=== PATIENT | female | born 1965 | race Caucasian/White ===

== ENCOUNTER 2019-01-06 20:18 | Emergency (ER) | payer OTHER, SELFPAY ==
[2019-01-06] VITALS (11 sets, daily range): BP systolic 122–178; BP diastolic 54–107; PULSE 62–88; RESP 13–19; TEMP 36.7; O2SAT 99–100
--- NOTE | 2019-01-06 20:25 | DI.CT.S_ITS ---
PROCEDURE: CT HEAD/BRAIN WO CON INDICATIONS: stroke like symptoms TECHNIQUE: Noncontrast 4.5 mm thick angled axial sections acquired from the foramen magnum to the vertex, with coronal and sagittal reformats. For radiation dose reduction, the following was used: automated exposure control, adjustment of mA and/or kV according to patient size. COMPARISON: None. FINDINGS: Image quality: Excellent. CSF spaces: Basal cisterns are patent. No extra-axial fluid collections. Ventricles are normal in size and shape. Brain: No midline shift. No intracranial masses or hemorrhage. Mohan-white matter interface is normal. Skull and face: Calvarium and visualized facial bones are intact, without suspicious lesions. Sinuses: Visualized sinuses and mastoids are clear. IMPRESSION: No CT evidence of acute intracranial process. Dictated by: Marguerite Price M.D. on 01/06/2019 at 21:06 Approved by: Marguerite Price M.D. on 01/06/2019 at 21:13
[2019-01-06] MEDS: SODIUM CHLORIDE 0.9% 1,000 ML 150 ML IV (20:38)
--- NOTE | 2019-01-06 20:45 | ED.HA ---
HPI - Headache General Chief Complaint: Headache Stated Complaint: thinks she had a stroke Time Seen by Provider: 01/06/19 20:20 Source: patient Mode of arrival: ambulatory Limitations: no limitations History of Present Illness HPI Narrative: 53-year-old female nonsmoker presents with a family friend in the chief complaint of neurologic symptoms that started at 7:30 p.m. this evening. Her initial presenting complaint was of a vague fullness in her head that quickly resolved and proceeded to evolve into some drooping of her left upper lid, left side of her face with some slurring of speech as well as left arm heaviness, tingling and left leg heaviness and tingling. She denies any recent injury nor fever or chills. She is otherwise well and at baseline. She denies the use of blood thinners. She has never had any bleeding complications and denies recent trauma or surgery. Patient activated as a code stroke and taken to CT scan. Her BEFAST positive but LAMS score is low, no code IR activated. Initially was very unclear regarding the timeline but once her friend came back we were able to establish a clear time of onset Onset (ago): hour(s) Location: left Relieving factors: nothing Exacerbating factors: none Associated symptoms: numbness and weakness Related Data Allergies Allergy/AdvReac Type Severity Reaction Status Date / Time promethazine [From Phenergan] Allergy Severe Seizure Verified 01/06/19 20:27 epinephrine Allergy Intermediate Verified 01/06/19 20:27 Review of Systems Constitutional Constitutional: Denies chills, Denies fatigue, Denies fever(s), Denies frequent falls, Denies lethargy and Reports weakness Eyes Eyes: Denies change in vision, Denies eye discharge, Denies irritation and Denies loss of vision ENT Ears, Nose, Mouth, and Throat: Denies change in voice, Denies dizziness, Denies neck pain, Denies sore throat and Denies throat swelling Cardiovascular Cardiovascular: Denies chest pain, Denies irregular heart rhythm, Denies lightheadedness, Denies palpitations, Denies dyspnea, Denies dyspnea on exertion and Denies orthopnea Respiratory Respiratory: Denies cough, Denies dyspnea, Denies dyspnea on exertion and Denies wheezing Gastrointestinal Gastrointestinal: Denies abdominal pain, Denies change in bowel habits, Denies diarrhea, Denies nausea and Denies vomiting Genitourinary Genitourinary: Denies hematuria, Denies flank pain, Denies urinary incontinence and Denies urinary urgency Musculoskeletal Musculoskeletal: Denies back pain, Denies muscle weakness, Denies neck pain, Reports numbness and Reports tingling Integumentary/Breasts Skin/Breast: Denies pruritus, Denies erythema, Denies rash and Denies wounds Neurologic Neurologic: Denies behavioral changes, Denies confusion, Denies dizziness, Denies frequent falls, Denies loss of vision, Reports numbness, Reports tingling and Reports weakness Psychiatric Psychiatric: Denies anxiety, Denies behavioral changes, Denies confusion, Denies depression, Denies homicidal ideation and Denies suicidal ideation Endocrine Endocrine: Denies fatigue, Denies flushing and Denies palpitations Hematologic/Lymphatic Hematologic/Lymphatic: Denies easy bruising Allergic/Immunologic Allergic/Immunologic: Denies urticaria, Denies throat swelling and Denies wheezing PFSH Social History Smoking Status: Never smoker Social History Smoking Status: Never smoker Exam Narrative Exam Narrative: GENERAL: [53] year old patient appears stated age. Well-nourished, well-developed patient, in mild distress. Anxious HEAD: Atraumatic. Normocephalic. EYES: Pupils equal round and reactive. Extraocular motions intact. No scleral icterus. No injection or drainage. ENT: Nose without bleeding, purulent drainage. Throat without erythema, tonsillar hypertrophy or exudate. Airway patent. NECK: Trachea midline. Non tender CARDIOVASCULAR: Regular rate and rhythm without murmurs, gallops, or rubs. RESPIRATORY: Clear to auscultation. Breath sounds equal bilaterally. No wheezes, rales, or rhonchi. GASTROINTESTINAL: Abdomen soft, non-tender, nondistended. EXTREMITIES: No edema or joint tenderness. BACK: Nontender without deformity or crepitance. No flank tenderness. NEURO: AOx3. SKIN: No rash or erythema of visible areas Initial Vital Signs Initial Vital Signs: Vital Signs Temperature 98.1 F 01/06/19 20:27 Pulse Rate 62 01/06/19 20:27 Respiratory Rate 18 01/06/19 20:27 Blood Pressure 131/72 01/06/19 20:27 Pulse Oximetry 100 01/06/19 20:27 Scores NIH Stroke Scale Level of Conciousness: Alert, keenly responsive Ask month/age: Answers both questions correctly. Open/close eyes, close hand: Performs both tasks correctly Best gaze horizontal: Normal Visual rose: No visual loss Facial palsy: Partial paralysis, total or near total paralysis of lower face Left arm drift: No drift for full 10 sec Right arm drift: No drift for full 10 sec Left leg drift: Drifts down, not to bed Right leg drift: No drift for full 10 sec Limb ataxia: Absent Sensory on face/arms/legs: Mild to moderate sensory loss, can tell touch Best language: No aphasia, normal Dysarthria: Normal Extinction or inattention: No abnormality Total NIH Stroke scale score: 4 Course Course Course Narrative: tPA (Tissue Plasminogen Activator) Dosing for Stroke Calculator from [employer] on 01/06/2019 All calculations should be rechecked by clinician prior to use RESULT SUMMARY: 6.6 mg Bolus dose, given IV over 1 min 59.7 mg Infusion, given IV over 60 mins 33.7 mg Waste, to be discarded INPUTS: Weight ?> 73.7 kg tPA Contraindications for Ischemic Stroke from [employer] on 01/06/2019 All calculations should be rechecked by clinician prior to use RESULT SUMMARY: Patient does NOT meet inclusion criteria for tPA. INPUTS: Age ?19 ?> 0 = No Clinical diagnosis of ischemic stroke causing neurological deficit ?> 0 = No Time of symptom onset ?> 0 = No Intracranial hemorrhage on CT ?> 0 = No Clinical presentation suggests subarachnoid hemorrhage ?> 0 = No Neurosurgery, head trauma, or stroke in past 3 months ?> 0 = No Uncontrolled hypertension (>185 mmHg SBP or >110 mmHg DBP) ?> 0 = No History of intracranial hemorrhage ?> 0 = No Known intracranial arteriovenous malformation, neoplasm, or aneurysm ?> 0 = No Active internal bleeding ?> 0 = No Suspected/confirmed endocarditis ?> 0 = No Known bleeding diathesis ?> 0 = No Abnormal blood glucose ( ?> 0 = No Only minor or rapidly improving stroke symptoms ?> 0 = No Major surgery or serious non-head trauma in the previous 14 days ?> 0 = No History of gastrointestinal or urinary tract hemorrhage within 21 days ?> 0 = No Seizure at stroke onset ?> 0 = No Recent arterial puncture at a noncompressible site ?> 0 = No Recent lumbar puncture ?> 0 = No Post myocardial infarction pericarditis ?> 0 = No ?> 0 = No Age >80 years ?> 0 = No History of prior stroke and diabetes ?> 0 = No Any active anticoagulant use (even with INR ?> 0 = No NIHSS >25 ?> 0 = No CT shows multilobar infarction (hypodensity >1/3 cerebral hemisphere) ?> 0 = No Orders Ordered: ED Orders 01/06/19 20:25 CT head/brain wo con Stat Urine Drug Screen, Rapid Stat EKG-12 Lead Stat 01/06/19 20:38 Basic Metabolic Panel Stat Complete Blood Count AUTO DIFF Stat Partial Thromboplastin Time Stat Prothrombin Time INR Stat 01/06/19 22:54 CT angio head and neck Stat Sodium Chloride (Normal Saline 0.9%) 1,000 mls @ 150 mls/hr IV CONT ZACK Last Infusion: 01/07/19 03:52 Dose: 150 mls/hr Documented by: Admin: 01/06/19 20:38 Dose: 150 mls/hr Documented by: LAKISHA Discontinued Medications Alteplase, Recombinant (Activase) 6.3 mg 0.09 mg/kg (6.3 mg) IV NOW ONE Stop: 01/06/19 22:14 Last Admin: 01/06/19 22:32 Dose: 6.3 mg Documented by: LAKISHA Alteplase, Recombinant (Activase) 56.6 mg 0.81 mg/kg (56.6 mg) IV NOW ONE Stop: 01/06/19 22:14 Last Admin: 01/06/19 22:33 Dose: 56.6 mg Documented by: LAKISHA Reevaluation(s) Reevaluation #1: patient has some improvement of symptoms after TPA bolus at 2232 drip at 2233 Consultations Consultation #1: consult with Dr. Horner at [facility] and we share opinion that this patient meets criteria for TPA patient consented, questions answered Consultation #2: [facility] consulted, happy with transfer to [facility], will check in on bed availability Vital Signs Vital signs: Vital Signs - 8 hr 01/06/19 20:27 01/06/19 21:00 01/06/19 21:30 Temperature 98.1 F Pulse Rate 62 67 75 Respiratory Rate 18 16 19 Blood Pressure 131/72 Blood Pressure [Left Arm] 152/66 H 136/54 L Pulse Oximetry 100 100 99 01/06/19 22:03 01/06/19 22:30 01/06/19 22:35 Temperature Pulse Rate 67 79 80 Respiratory Rate 18 13 18 Blood Pressure Blood Pressure [Left Arm] 178/75 H 156/107 H 170/83 H Pulse Oximetry 100 100 100 01/06/19 22:45 01/07/19 00:22 01/07/19 00:30 Temperature Pulse Rate 76 62 64 Respiratory Rate 19 14 17 Blood Pressure Blood Pressure [Left Arm] 166/75 H 131/73 122/82 Pulse Oximetry 100 100 99 01/07/19 02:00 01/07/19 03:30 Temperature Pulse Rate 60 79 Respiratory Rate 16 15 Blood Pressure Blood Pressure [Left Arm] 135/79 136/84 Pulse Oximetry 97 98 MDM - Headache Lab Data Result diagrams: 01/06/19 20:38 01/06/19 20:38 Labs: Lab Results 01/06/19 01/06/19 01/06/19 Range/Units 20:38 20:38 20:38 WBC 7.1 (4.5-11.0) X10^3/uL RBC 4.88 (4.0-5.2) X10^6/uL Hgb 15.0 (12.0-16.0) g/dL Hct 44.2 (36-46) % MCV 90.6 (80-100) fL MCH 30.7 (26-34) PG MCHC 33.9 (30-36) % RDW 14.2 (11.6-14.8) % Plt Count 294 (150-400) X10^3/uL Neut % (Auto) 56.5 (50-75) % Lymph % (Auto) 31.5 (25-40) % [place] % (Auto) 10.3 (3-14) % Eos % (Auto) 1.1 L (2-4) % Baso % (Auto) 0.6 (0-2) % Neut # (Auto) 4000 (7967-3516) /uL Lymph # (Auto) 2200 (2439-7252) /uL [place] # (Auto) 700 (0-900) /uL Eos # (Auto) 100 (0-450) /uL Baso # (Auto) 0 (0-100) /uL PT 11.5 (10.1-12.7) SECONDS INR 1.0 (0.9-1.3) APTT 33 (26.4-36.2) SECONDS Sodium 139 (137-145) mmol/L Potassium 3.8 (3.4-5.1) mmol/L Chloride 100 (98-107) mmol/L Carbon Dioxide 31 (22-32) mmol/L BUN 13 (7-17) mg/dL Creatinine 0.70 (0.52-1.04) mg/dL Estimated GFR > 60.0 (>60) mL/min BUN/Creatinine Ratio 18.6 (6-22) Glucose 102 H (70-100) mg/dL Calcium 9.0 (8.4-10.2) mg/dL Urine Dip Bedside Urine Glucose Negative Bedside Urine Bilirubin - Negative Bedside Urine Ketone +/- 5 Urine Specific [place] 1.015 Bedside Urine Occult Blood + Bedside Urine pH 6.0 Bedside Urine Protein - Negative Bedside Urine Urobilinogen - Negative Bedside Urine Nitrite - Negative Bedside Urine Leukocytes - Negative Esterase Imaging Data CT scan - head: Radiologist's impression: Halina Jones 53 [place] 1965 [place] [address] CT Scan Report Signed Patient: Halina Jones LMR#: [id number] : 1965Acct:[id number] Age/Sex: 53 / FDate of Service: 01/06/19 Loc: ED Accession Number: [id number] Procedure: CT head/brain wo con Ordering Provider: Dennis Vicente D.O. PROCEDURE: CT HEAD/BRAIN WO CON INDICATIONS: stroke like symptoms TECHNIQUE: Noncontrast 4.5 mm thick angled axial sections acquired from the foramen magnum to the vertex, with coronal and sagittal reformats. For radiation dose reduction, the following was used: automated exposure control, adjustment of mA and/or kV according to patient size. COMPARISON: None. FINDINGS: Image quality: Excellent. CSF spaces: Basal cisterns are patent. No extra-axial fluid collections. Ventricles are normal in size and shape. Brain: No midline shift. No intracranial masses or hemorrhage. Mohan-white matter interface is normal. Skull and face: Calvarium and visualized facial bones are intact, without suspicious lesions. Sinuses: Visualized sinuses and mastoids are clear. IMPRESSION: No CT evidence of acute intracranial process. Dictated by: Marguerite Price M.D. on 01/06/2019 at 21:06 Approved by: Marguerite Price M.D. on 01/06/2019 at 21:13 CTA Head/Neck: Radiologist's impression: Moderate short segment stenosis, distal P1 MDM Narrative Medical decision making narrative: Patient presents with stroke symptoms within TPA time frame. No contraindications noted, consult with [facility], patient consented for TPA and medication administered. Accepting providers at [facility], but some delay in bed availability. [facility] consulted. Transportation arranged. Nestor La [phone] would like a call for any updates Critical Care Time Critical Care Time Critical Care Time: Yes Total Critical Care Time: 30 Attestation: The high probability of a clinically significant, sudden or life threatening deterioration of the [neuro] system(s) required my full and direct attention, intervention and personal management. The aggregate critical care time was [30] minutes. This time is in addition to time spent performing reported procedures but includes the following: [x] Data Review and interpretation [x] Patient assessment and monitoring of vital signs [x] Documentation [x] Medication orders and management Discharge Plan Departure Patient Disposition: [facility] Clinical Impression: Stroke Qualifiers: CVA mechanism: other Qualified Code(s): I63.89 - Other cerebral infarction
[2019-01-06 20:53] LABS: Add Manual Diff / Slide Review NO; Basophils Absolute Auto 0 /uL (0-100); Basophils Percent Auto 0.6 % (0-2); Eosinophils Absolute Auto 100 /uL (0-450); Eosinophils Percent Auto 1.1 % (2-4); Hematocrit 44.2 % (36-46); Lymphocytes Absolute Auto 2200 /uL (1100-4500); Lymphocytes Percent Auto 31.5 % (25-40); Mean Corpuscular HGB Conc 33.9 % (30-36); Mean Corpuscular Hemoglobin 30.7 PG (26-34); Mean Corpuscular Volume 90.6 fL (80-100); Monocytes Absolute Auto 700 /uL (0-900); Monocytes Percent Auto 10.3 % (3-14); Neutrophils Absolute Auto 4000 /uL (1500-7000); Neutrophils Percent Auto 56.5 % (50-75); Platelet Count 294 X10^3/uL (150-400); Red Blood Cell Count 4.88 X10^6/uL (4.0-5.2); Red Cell Distribution Width 14.2 % (11.6-14.8); White Blood Cell Count 7.1 X10^3/uL (4.5-11.0)
[2019-01-06 21:00] LABS: Prothrombin Time 11.5 SECONDS (10.1-12.7)
[2019-01-06 21:03] LABS: PTT Partial Thromboplastin Tim 33 SECONDS (26.4-36.2)
[2019-01-06 21:05] LABS: BUN Creatinine Ratio 18.6 (6-22); Blood Urea Nitrogen 13 mg/dL (7-17); Carbon Dioxide 31 mmol/L (22-32); Chloride 100 mmol/L (98-107); Estimated Glomerular Filt Rate > 60.0 mL/min (>60); Glucose 102 mg/dL (70-100); HEMOLYSIS < 15 (0-50); Potassium 3.8 mmol/L (3.4-5.1); Sodium 139 mmol/L (137-145)
[2019-01-06] MEDS: ALTEPLASE 100 MG VIAL 6.3 MG IV (22:32)
[2019-01-06] MEDS: ALTEPLASE 100 MG VIAL 56.6 MG IV (22:33)
--- NOTE | 2019-01-06 22:54 | DI.CT.S_ITS ---
PROCEDURE: CT ANGIO HEAD AND NECK INDICATIONS: POST TPA, request per Setswana Stroke TECHNIQUE: Pre-contrast 4.5 mm thick sections acquired from the foramen magnum to the vertex. After the administration of intravenous contrast, 1 mm thick sections acquired from the aortic arch through the Kiana of Matt. Post-contrast 4.5 mm thick sections then re-acquired from the foramen magnum to the vertex. 3-dimensional dwnzedu-xyebhlyyi-jmidynubfz (MIP) and/or volume rendering reformats were acquired of the central intracranial vasculature and neck separately. COMPARISON: [facility], CT, CT HEAD/BRAIN WO CON, 01/06/2019, 20:32. FINDINGS: Image quality: Excellent. BRAIN: CSF spaces: Ventricles are normal in size and shape. Basal cisterns are patent. No extra-axial fluid collections. Brain: No midline shift. No intracranial bleeds or masses. Mohan-white matter interface appears intact. Skull and face: Calvarium and facial bones appear intact, without suspicious lesions. Orbits appear normal. Sinuses: Sinuses and mastoids are clear. HEAD CT ANGIOGRAPHY: Anterior circulation: Intracranial internal carotid arteries are normal in size and flow. The flow within the paired anterior cerebral arteries is normal and symmetric. The flow within the middle cerebral arteries is normal and symmetric. The anterior communicating artery is seen. No aneurysms are seen. Posterior circulation: Visualized portions of the vertebral arteries demonstrate normal caliber, and join to form a normal appearing basilar artery. Flow within the posterior cerebral arteries is normal. Focal, moderate, short segment stenosis noted in the P1 segment of the left posterior cerebral artery. No aneurysms are seen. Dural sinuses demonstrate normal postcontrast enhancement. NECK CT ANGIOGRAPHY: Carotid system: The great vessels demonstrate a conventional anatomy as they arise from the aortic arch. The origins of the common carotid arteries appear patent. The common carotid arteries demonstrate normal caliber and courses. The bifurcation regions are both widely patent. The internal carotid arteries demonstrate normal calibers and courses. Posterior circulation: The origins of the vertebral arteries both appear widely patent. The more superior extracranial portions of both vertebral arteries also demonstrate normal courses and calibers. They join to form a normal appearing basilar artery. Soft tissues: Visualized neck soft tissues demonstrate no suspicious abnormalities. Bones: No suspicious bony lesions. Visualized cervical spine appears normally aligned. IMPRESSION: 1. No acute intracranial disease process. 2. No large vessel occlusion, vascular dissection or aneurysm. 3. 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 Any quantitative measurements of stenosis were performed using NASCET criteria. Dictated by: Kimi Dawson MD, PhD on 01/07/2019 at 7:58 Approved by: Kimi Dawson MD, PhD on 01/07/2019 at 8:06
[2019-01-07] VITALS (10 sets, daily range): BP systolic 122–149; BP diastolic 66–85; PULSE 60–79; RESP 12–18; O2SAT 97–100
== END 2019-01-07 04:20 | disposition short-term general hospital (02) ==
PROVIDERS: Emergency Provider Emergency Medicine
DX: I63.89 Other cerebral infarction (principal)
CPT/HCPCS: 36591; 70450; 70496; 70498; 80048; 81003; 85025; 85610; 85730; 93005; 96361; 96374; 99285; 99291; 99292; J2997; Q9967

== ENCOUNTER 2019-02-04 14:15 | Emergency (ER) | payer OTHER, SELFPAY ==
[2019-02-04 14:24] VITALS: BP 141/91; PULSE 47; RESP 15; TEMP 36.2; O2SAT 100; BMI 25.7
[2019-02-04 15:00] VITALS: BP 152/83; PULSE 67; RESP 16; O2SAT 99
--- NOTE | 2019-02-04 15:07 | DI.RAD.S_ITS ---
PROCEDURE: XR CHEST 1V INDICATIONS: chest pain TECHNIQUE: One view of the chest was acquired. COMPARISON: [facility], , CHEST 2 VIEW, 07/20/2012, 18:29. FINDINGS: Surgical changes and devices: None. Lungs and pleura: Lungs are clear. No pleural effusions or pneumothorax. Mediastinum: Mediastinal contours appear normal. Heart size is normal. Bones and chest wall: No suspicious bony lesions. Overlying soft tissues appear unremarkable. IMPRESSION: No acute disease Dictated by: Demar Gonzalez M.D. on 02/04/2019 at 15:43 Approved by: Demar Gonzalez M.D. on 02/04/2019 at 15:43
--- NOTE | 2019-02-04 15:07 | DI.CT.S_ITS ---
PROCEDURE: CT HEAD/BRAIN WO CON INDICATIONS: foggy brain after tpa 01/06 TECHNIQUE: Noncontrast 4.5 mm thick angled axial sections acquired from the foramen magnum to the vertex, with coronal and sagittal reformats. For radiation dose reduction, the following was used: automated exposure control, adjustment of mA and/or kV according to patient size. COMPARISON: [facility], CT, CT ANGIO HEAD AND NECK, 01/06/2019, 22:58. [facility], CT, CT HEAD/BRAIN WO CON, 01/06/2019, 20:32. FINDINGS: Image quality: Excellent. CSF spaces: Basal cisterns are patent. No extra-axial fluid collections. Ventricles are normal in size and shape. Brain: No midline shift. No intracranial masses or hemorrhage. Mohan-white matter interface is normal. Skull and face: Calvarium and visualized facial bones are intact, without suspicious lesions. Sinuses: Visualized sinuses and mastoids are clear. IMPRESSION: Normal intracranial examination, without findings of interval hemorrhage. Dictated by: Guerrero Kuhn M.D. on 02/04/2019 at 14:47 Approved by: Guerrero Kuhn M.D. on 02/04/2019 at 14:48
--- NOTE | 2019-02-04 15:13 | ED.NEUROSD ---
HPI - Neuro Symptoms/Deficit General Chief Complaint: Neuro Symptoms/Deficit Stated Complaint: hx stroke/left face side drooping 10mins ago Time Seen by Provider: 02/04/19 14:56 Source: patient Mode of arrival: Wheelchair Limitations: no limitations History of Present Illness HPI Narrative: Patient is a 53-year-old female who presents with bilateral face tingling and bilateral cold hands sweating. She states that something is wrong. She actually received tPA for CVA 01/06/2019. She had no evidence of stroke on imaging. She was transferred to [facility]. She says today she feels like her heart is acting up she is noted to be in bigeminy on the monitor she says she does not actually feel a but she can't tell if something strong she just does not feel right. She feels a little lightheaded, she denies passing out. She has no chest pain. She states she had some left-sided facial droop although it is not the here and now. She has a be fast of 0 a lands of 0 in an NIH of 0. On Anticoagulants: Yes (asa) Related Data Home Medications Medication Instructions Recorded Confirmed alprazolam 0.25 mg PO PRN PRN 02/04/19 02/04/19 aspirin 81 mg PO DAILY 02/04/19 atorvastatin 40 mg PO DAILY 02/04/19 02/04/19 metoprolol succinate 25 mg PO DAILY 02/04/19 02/04/19 Allergies Allergy/AdvReac Type Severity Reaction Status Date / Time promethazine [From Phenergan] Allergy Severe Seizure Verified 02/04/19 14:24 epinephrine Allergy Intermediate Verified 02/04/19 14:24 Review of Systems Review of Systems ROS Unobtainable: All systems reviewed & are unremarkable except as noted in HPI and below Constitutional Constitutional: Denies chills, Denies fever(s), Denies lethargy and Denies weakness Eyes Eyes: Denies change in vision, Denies eye discharge, Denies irritation and Denies loss of vision ENT Ears, Nose, Mouth, and Throat: Denies change in voice, Denies neck pain and Denies sore throat Cardiovascular Cardiovascular: Denies chest pain, Denies irregular heart rhythm, Denies lightheadedness, Reports palpitations, Denies dyspnea, Denies dyspnea on exertion and Denies orthopnea Respiratory Respiratory: Denies cough, Denies dyspnea, Denies dyspnea on exertion and Denies wheezing Gastrointestinal Gastrointestinal: Denies abdominal pain, Denies change in bowel habits, Denies diarrhea, Denies nausea and Denies vomiting Genitourinary Genitourinary: Denies hematuria, Denies flank pain, Denies urinary incontinence and Denies urinary urgency Musculoskeletal Musculoskeletal: Denies neck pain Integumentary/Breasts Skin/Breast: Denies pruritus, Denies erythema, Denies rash and Denies wounds Neurologic Neurologic: Reports as per HPI, Denies loss of vision and Denies weakness Endocrine Endocrine: Reports palpitations Allergic/Immunologic Allergic/Immunologic: Denies wheezing [facility] Medical History Bigeminy (Acute) CVA (cerebral vascular accident) (Acute) Social History Smoking Status: Never smoker Social History Smoking Status: Never smoker Exam Initial Vital Signs Initial Vital Signs: Vital Signs Temperature 97.2 F L 02/04/19 14:24 Pulse Rate 47 L 02/04/19 14:24 Respiratory Rate 15 02/04/19 14:24 Blood Pressure 141/91 H 02/04/19 14:24 Pulse Oximetry 100 02/04/19 14:24 GENERAL: Well-appearing, well-nourished and in no acute distress. HEENT: Head atraumatic,EOMI, pupils reactive, face symmetric CARDIOVASCULAR: Regular rate and rhythm without murmurs, rubs or gallops. RESPIRATORY: Breath sounds equal bilaterally, no wheezes rales or rhonchi. ABDOMEN: Soft, nontender. Normoactive bowel sounds all 4 quadrants. No guarding or rebound. : No CVA tenderness EXTREMITIES: Normal range of motion, no clubbing or edema. Neurovascularly intact NEUROLOGICAL: Alert and oriented x4.Normal gait and speech. Bank Worker strength equal bilaterally lower leg extremity strength equal SKIN: Warm, dry, no laceration, no petechiae, no rashes or lesions. Scores NIH Stroke Scale Level of Conciousness: Alert, keenly responsive Ask month/age: Answers both questions correctly. Open/close eyes, close hand: Performs both tasks correctly Best gaze horizontal: Normal Visual rose: No visual loss Facial palsy: Normal symetrical movement Left arm drift: No drift for full 10 sec Right arm drift: No drift for full 10 sec Left leg drift: No drift for full 10 sec Right leg drift: No drift for full 10 sec Limb ataxia: Absent Sensory on face/arms/legs: Normal, no sensory loss Best language: No aphasia, normal Dysarthria: Normal Extinction or inattention: No abnormality Total NIH Stroke scale score: 0 Course Orders Ordered: Discontinued Medications Sodium Chloride (Normal Saline 0.9%) 1,000 mls @ 1,000 mls/hr IV CONT ZACK Last Infusion: 02/04/19 17:38 Dose: 0 mls/hr Documented by: Admin: 02/04/19 15:49 Dose: 1,000 mls/hr Documented by: MJ Vital Signs Vital signs: Vital Signs - 8 hr 02/04/19 14:24 Temperature 97.2 F L Pulse Rate 47 L Respiratory Rate 15 Blood Pressure 141/91 H Pulse Oximetry 100 MDM - Neuro Symptoms/Deficit Lab Data Attestation: I reviewed the patient's lab results. Result diagrams: 02/04/19 15:30 02/04/19 15:30 Labs: Lab Results 02/04/19 02/04/19 02/04/19 Range/Units 15:30 15:30 15:30 WBC 6.6 (4.5-11.0) X10^3/uL RBC 4.95 (4.0-5.2) X10^6/uL Hgb 15.2 (12.0-16.0) g/dL Hct 44.4 (36-46) % MCV 89.6 (80-100) fL MCH 30.7 (26-34) PG MCHC 34.3 (30-36) % RDW 13.5 (11.6-14.8) % Plt Count 275 (150-400) X10^3/uL Neut % (Auto) 61.8 (50-75) % Lymph % (Auto) 26.7 (25-40) % [place] % (Auto) 9.7 (3-14) % Eos % (Auto) 1.4 L (2-4) % Baso % (Auto) 0.4 (0-2) % Neut # (Auto) 4100 (5422-9767) /uL Lymph # (Auto) 1800 (2759-2944) /uL [place] # (Auto) 600 (0-900) /uL Eos # (Auto) 100 (0-450) /uL Baso # (Auto) 0 (0-100) /uL PT 11.4 (10.1-12.7) SECONDS INR 1.0 (0.9-1.3) APTT 35 D (26.4-36.2) SECONDS Sodium 142 (137-145) mmol/L Potassium 4.2 (3.4-5.1) mmol/L Chloride 100 (98-107) mmol/L Carbon Dioxide 30 (22-32) mmol/L BUN 9 (7-17) mg/dL Creatinine 0.60 (0.52-1.04) mg/dL Estimated GFR > 60.0 (>60) mL/min BUN/Creatinine Ratio 15.0 (6-22) Glucose 103 H (70-100) mg/dL Calcium 9.3 (8.4-10.2) mg/dL Total Bilirubin 0.5 (0.2-1.3) mg/dL AST 39 H (14-36) IU/L ALT 55 H (9-52) IU/L Alkaline Phosphatase 127 H (38-126) U/L Total Creatine Kinase 55 (30-135) U/L CK-MB (CK-2) TNP CK-MB (CK-2) Rel Index TNP Troponin I < 0.012 (0.01-0.034) ng/mL Total Protein 7.8 (6.3-8.2) g/dL Albumin 4.6 (3.5-5.0) g/dL Globulin 3.2 (1.7-4.1) g/dL Albumin/Globulin Ratio 1.4 (1.0-2.8) Urine Dip Bedside Urine Glucose Negative Bedside Urine Bilirubin - Negative Bedside Urine Ketone - Negative Urine Specific [place] 1.005 Bedside Urine Occult Blood - Negative Bedside Urine pH 7.0 Bedside Urine Protein - Negative Bedside Urine Urobilinogen - Negative Bedside Urine Nitrite - Negative Bedside Urine Leukocytes - Negative Esterase Imaging Data Chest x-ray: Radiologist's impression: PROCEDURE: XR CHEST 1V INDICATIONS: chest pain TECHNIQUE: One view of the chest was acquired. COMPARISON: [facility], CHEST 2 VIEW, 07/20/2012, 18:29. FINDINGS: Surgical changes and devices: None. Lungs and pleura: Lungs are clear. No pleural effusions or pneumothorax. Mediastinum: Mediastinal contours appear normal. Heart size is normal. Bones and chest wall: No suspicious bony lesions. Overlying soft tissues appear unremarkable. IMPRESSION: No acute disease Dictated by: Demar Gonzalez M.D. on 02/04/2019 at 15:43 CT scan - head: Radiologist's impression: PROCEDURE: CT HEAD/BRAIN WO CON INDICATIONS: foggy brain after tpa 01/06 TECHNIQUE: Noncontrast 4.5 mm thick angled axial sections acquired from the foramen magnum to the vertex, with coronal and sagittal reformats. For radiation dose reduction, the following was used: automated exposure control, adjustment of mA and/or kV according to patient size. COMPARISON: [facility], CT, CT ANGIO HEAD AND NECK, 01/06/2019, 22:58. [facility], CT, CT HEAD/BRAIN WO CON, 01/06/2019, 20:32. FINDINGS: Image quality: Excellent. CSF spaces: Basal cisterns are patent. No extra-axial fluid collections. Ventricles are normal in size and shape. Brain: No midline shift. No intracranial masses or hemorrhage. Mohan-white matter interface is normal. Skull and face: Calvarium and visualized facial bones are intact, without suspicious lesions. Sinuses: Visualized sinuses and mastoids are clear. IMPRESSION: Normal intracranial examination, without findings of interval hemorrhage. Dictated by: Guerrero Kuhn M.D. on 02/04/2019 at 14:47 ECG Data Attestation: I personally reviewed and interpreted this ECG as follows: Prior ECG tracings: available for review Interpretation: Bigeminy rate [address] changes similar to previous EKG MDM Narrative Medical decision making narrative: The patient has bigeminy stop spontaneously. She started to feel much better. She has it NIH of 0, symptoms not consistent with TIA or stroke. However her heart does seem to be going in and out of bigeminy. She conveniently has appointment with her recessing machine operator tomorrow. She is on metoprolol 25 mg a day. She overall is feeling much better than she did earlier. She is given copies of her EKGs to take to her recessing machine operator Discharge Plan Departure Patient Disposition: Home Clinical Impression: Bigeminy Discharge Date/Time: 02/04/19 18:26 Instructions: Premature Ventricular Beats Activity Restrictions/Additional Instructions: *You have been diagnosed with rebekah *What to do: You have been given EKGs, please bring them to her cardiology appointment tomorrow as scheduled. Your medication may require adjustment *Continue to take medications as directed *Follow up with your primary care provider in 2-3 days *Return to ER if you should have increasing dizziness heart palpitations clamminess lightheaded is passing out or any new, worsening or concerning symptoms Prescriptions: No Action atorvastatin 40 mg tablet 40 mg PO DAILY RF: 0 aspirin 81 mg tablet,delayed release (DR/EC) 81 mg PO DAILY RF: 0 alprazolam 0.25 mg tablet 0.25 mg PO PRN PRN (Reason: Panic Attack(S)) RF: 0 metoprolol succinate 25 mg tablet extended release 24 hr 25 mg PO DAILY RF: 0 Referrals: Claudia Robledo MD [Physician] -
[2019-02-04 15:38] LABS: Add Manual Diff / Slide Review NO; Basophils Absolute Auto 0 /uL (0-100); Basophils Percent Auto 0.4 % (0-2); Eosinophils Absolute Auto 100 /uL (0-450); Eosinophils Percent Auto 1.4 % (2-4); Hematocrit 44.4 % (36-46); Hemoglobin 15.2 g/dL (12.0-16.0); Lymphocytes Absolute Auto 1800 /uL (1100-4500); Lymphocytes Percent Auto 26.7 % (25-40); Mean Corpuscular HGB Conc 34.3 % (30-36); Mean Corpuscular Hemoglobin 30.7 PG (26-34); Mean Corpuscular Volume 89.6 fL (80-100); Monocytes Absolute Auto 600 /uL (0-900); Monocytes Percent Auto 9.7 % (3-14); Neutrophils Absolute Auto 4100 /uL (1500-7000); Neutrophils Percent Auto 61.8 % (50-75); Platelet Count 275 X10^3/uL (150-400); Red Blood Cell Count 4.95 X10^6/uL (4.0-5.2); Red Cell Distribution Width 13.5 % (11.6-14.8); White Blood Cell Count 6.6 X10^3/uL (4.5-11.0)
[2019-02-04 15:48] LABS: Prothrombin Time 11.4 SECONDS (10.1-12.7)
[2019-02-04 15:49] LABS: Alanine Aminotransferase 55 IU/L (9-52); Albumin 4.6 g/dL (3.5-5.0); Albumin Globulin Ratio 1.4 (1.0-2.8); Alkaline Phosphatase 127 U/L (38-126); Aspartate Aminotransferase 39 IU/L (14-36); Bilirubin Total 0.5 mg/dL (0.2-1.3); Blood Urea Nitrogen 9 mg/dL (7-17); Calcium 9.3 mg/dL (8.4-10.2); Carbon Dioxide 30 mmol/L (22-32); Chloride 100 mmol/L (98-107); Creatine Kinase 55 U/L (30-135); Estimated Glomerular Filt Rate > 60.0 mL/min (>60); Globulin 3.2 g/dL (1.7-4.1); Glucose 103 mg/dL (70-100); HEMOLYSIS 18 (0-50); Potassium 4.2 mmol/L (3.4-5.1); Sodium 142 mmol/L (137-145); Total Protein 7.8 g/dL (6.3-8.2)
[2019-02-04] MEDS: SODIUM CHLORIDE 0.9% 1,000 ML 1000 ML IV (15:49)
[2019-02-04 15:50] LABS: PTT Partial Thromboplastin Tim 35 SECONDS (26.4-36.2)
[2019-02-04 16:00] VITALS: BP 128/68; PULSE 64; RESP 12; O2SAT 100
[2019-02-04 16:01] LABS: Troponin I < 0.012 ng/mL (0.01-0.034)
[2019-02-04 17:00] VITALS: BP 130/79; PULSE 65; RESP 18; O2SAT 100
[2019-02-04 18:00] VITALS: BP 121/77; PULSE 60; RESP 14; O2SAT 100
--- NOTE | 2019-02-04 18:20 | PC.NURSE ---
Patient reports tingling to left hand and face, no weakness of droop. Also reports poor circulation and cold feet.
== END 2019-02-04 18:26 | disposition home or self-care (01) ==
PROVIDERS: Emergency Provider Emergency Medicine
DX: I49.9 Cardiac arrhythmia, unspecified (principal); R07.9 Chest pain, unspecified; I63.9 Cerebral infarction, unspecified; Z79.01 Long term (current) use of anticoagulants
CPT/HCPCS: 36415; 70450; 71045; 80053; 81003; 82550; 84484; 85025; 85610; 85730; 93005; 96360; 96361; 99283; 99285

== ENCOUNTER 2019-12-26 15:38 | Emergency (ER) | payer OTHER, SELFPAY ==
[2019-12-26] VITALS (8 sets, daily range): BP systolic 158–185; BP diastolic 72–87; PULSE 53–67; RESP 15–21; TEMP 36.7–36.8; O2SAT 96–100; BMI 25.3
--- NOTE | 2019-12-26 15:51 | ED.ARRPALP ---
HPI - Arrhythmia/Palpitations General Chief Complaint: Arrhythmia/Palpitations Stated Complaint: heart not acting ok Time Seen by Provider: 12/26/19 15:48 Source: patient and old records reviewed Mode of arrival: Ambulatory Limitations: no limitations History of Present Illness HPI narrative: Patient is a 54-year-old female with history of bigeminy and CVA presenting today with heart issues. She says that she feels like her heart is ?squishy.She can not really describe it she is noted to be going in and out of bigeminy on the monitor according to records she does have a history of spontaneously going out of bigeminy. She says she feels dizzy lightheaded she does not feel quite right she takes metoprolol as needed when she feels this way she took 1 dose prior to arrival. She denies any shortness of breath she has no numbness tingling or weakness. She overall just does not feel well MD complaint: palpitations and irregular heart beat Duration: constant Related Data Home Medications Medication Instructions Recorded Confirmed alprazolam 0.25 mg PO PRN PRN 02/04/19 02/04/19 aspirin 81 mg PO DAILY 02/04/19 atorvastatin 40 mg PO DAILY 02/04/19 02/04/19 metoprolol succinate 25 mg PO DAILY 02/04/19 02/04/19 Allergies Allergy/AdvReac Type Severity Reaction Status Date / Time promethazine [From Phenergan] Allergy Severe Seizure Verified 12/26/19 15:58 epinephrine Allergy Intermediate Verified 12/26/19 15:58 Review of Systems Review of Systems Narrative: GENERAL: Denies chills, fatigue, malaise, fever, sweats, travel HEENT: Denies sinus pain, ear pain, sore throat, difficulty swallowing, neck pain RESPIRATORY: Denies dyspnea, cough, wheezing, hemoptysis, sputum. CARDIOVASCULAR: See HPI GASTROINTESTINAL: Denies nausea, vomiting, abdominal pain, diarrhea, constipation, melena. : Denies dysuria, frequency, incontinence, hematuria, urinary retention, flank pain. MUSCULOSKELETAL: Denies weakness, joint pain, or bony pain SKIN: No rash, no erythema, no pruritus NEUROLOGIC: Denies weakness, dizziness, headache, numbness, change in speech, confusion PSYCHIATRIC: No concerning psychosocial issues. 12 point review of systems is negative except for those stated above and HPI Patient History Medical History Bigeminy (Acute) CVA (cerebral vascular accident) (Acute) Social History Smoking Status: Never smoker Smoking Status: Never smoker alcohol intake frequency: holidays/special occasions only Substance Use Type: does not use Exam Initial Vital Signs Initial Vital Signs: Vital Signs Temperature 98.3 F 12/26/19 15:52 Pulse Rate 67 12/26/19 15:52 Respiratory Rate 16 12/26/19 15:52 Blood Pressure 185/87 H 12/26/19 15:52 Pulse Oximetry 96 12/26/19 15:52 GENERAL: Well-appearing, well-nourished and in no acute distress. HEENT: Head atraumatic,EOMI, pupils reactive, face symmetric, moist mucous membranes CARDIOVASCULAR: Regular rate and rhythm without murmurs, rubs or gallops. RESPIRATORY: Breath sounds equal bilaterally, no wheezes rales or rhonchi. ABDOMEN: Soft, nontender. Normoactive bowel sounds all 4 quadrants. No guarding or rebound. EXTREMITIES: Normal range of motion, no clubbing or edema. Neurovascularly intact NEUROLOGICAL: Alert and oriented x4.Normal gait and speech. Cranial nerves II through XII grossly intact. Good [id number], good [id number], strength equal bilaterally, no dysarthria or aphasia, sensation in tact to soft touch bilaterally, no visual changes, no facial droop SKIN: Warm, dry, no laceration, no petechiae, no rashes or lesions. Course Orders Ordered: ED Orders 12/26/19 15:43 EKG-12 Lead Routine 12/26/19 15:50 Complete Blood Count AUTO DIFF Stat Comprehensive Metabolic Panel Stat Lipase Stat Magnesium Stat Partial Thromboplastin Time Stat Prothrombin Time INR Stat Thyroid Stimulating Hormone Stat Troponin & CK Cardiac Panel Stat 12/26/19 15:52 XR chest 1V Stat 12/26/19 17:30 Troponin I Stat Sodium Chloride (Normal Saline 0.9%) 1,000 mls @ 150 mls/hr IV CONT ZACK Last Admin: 12/26/19 17:39 Dose: Not Given Documented by: JOSELO Discontinued Medications Sodium Chloride (Normal Saline 0.9%) 1,000 mls @ 1,000 mls/hr IV BOLUS ONE Stop: 12/26/19 16:52 Last Infusion: 12/26/19 17:34 Dose: 0 mls/hr Documented by: Admin: 12/26/19 16:26 Dose: 1,000 mls/hr Documented by: JOSELO Metoprolol Tartrate (Lopressor) 2.5 mg IV NOW ONE Stop: 12/26/19 16:04 Last Admin: 12/26/19 16:26 Dose: 2.5 mg Documented by: JOSELO Metoprolol Tartrate (Lopressor) 2.5 mg IV NOW ONE Stop: 12/26/19 16:51 Last Admin: 12/26/19 16:57 Dose: 2.5 mg Documented by: JOSELO Vital Signs Vital signs: Vital Signs - 8 hr 12/26/19 15:52 12/26/19 15:59 12/26/19 16:00 Temperature 98.3 F Pulse Rate 67 64 64 Respiratory Rate 16 18 20 Blood Pressure 185/87 H 172/81 H Pulse Oximetry 96 100 100 12/26/19 16:16 12/26/19 16:30 12/26/19 16:45 Temperature Pulse Rate 60 62 57 L Respiratory Rate 16 15 20 Blood Pressure 166/72 H 158/76 H 180/77 H Pulse Oximetry 100 100 100 12/26/19 17:00 Temperature Pulse Rate 56 L Respiratory Rate 18 Blood Pressure 168/77 H Pulse Oximetry 100 MDM - Arrhythmia/Palpitations Lab Data Attestation: I reviewed the patient's lab results. Result diagrams: 12/26/19 15:50 12/26/19 15:50 Labs: Lab Results 12/26/19 12/26/19 12/26/19 Range/Units 15:50 15:50 15:50 WBC 7.9 (4.5-11.0) X10^3/uL RBC 4.77 (4.0-5.2) X10^6/uL Hgb 14.4 (12.0-16.0) g/dL Hct 43.1 (36-46) % MCV 90.3 (80-100) fL MCH 30.1 (26-34) PG MCHC 33.3 (30-36) % RDW 14.4 (11.6-14.8) % Plt Count 261 (150-400) X10^3/uL Neut % (Auto) 60.4 (50-75) % Lymph % (Auto) 29.0 (25-40) % [place] % (Auto) 8.7 (3-14) % Eos % (Auto) 1.5 L (2-4) % Baso % (Auto) 0.4 (0-2) % Neut # (Auto) 4800 (2777-6114) /uL Lymph # (Auto) 2300 (4906-4814) /uL [place] # (Auto) 700 (0-900) /uL Eos # (Auto) 100 (0-450) /uL Baso # (Auto) 0 (0-100) /uL PT 12.0 (10.1-12.7) SECONDS INR 1.0 (0.9-1.3) APTT 31 D (26.4-36.2) SECONDS Sodium 135 L (137-145) mmol/L Potassium 3.7 (3.4-5.1) mmol/L Chloride 98 (98-107) mmol/L Carbon Dioxide 31 (22-32) mmol/L BUN 12 (7-17) mg/dL Creatinine 0.67 (0.52-1.04) mg/dL Estimated GFR > 60.0 (>60) mL/min BUN/Creatinine Ratio 17.9 (6-22) Glucose 109 H (70-100) mg/dL Calcium 9.2 (8.4-10.2) mg/dL Magnesium (1.6-2.3) mg/dL Total Bilirubin 0.4 (0.2-1.3) mg/dL AST 27 (14-36) IU/L ALT 24 (<35) IU/L Alkaline Phosphatase 110 (38-126) U/L Total Creatine Kinase 53 (30-135) U/L CK-MB (CK-2) TNP CK-MB (CK-2) Rel Index TNP Troponin I < 0.012 (0.01-0.034) ng/mL Total Protein 7.7 (6.3-8.2) g/dL Albumin 4.5 (3.5-5.0) g/dL Globulin 3.2 (1.7-4.1) g/dL Albumin/Globulin Ratio 1.4 (1.0-2.8) Lipase 150 (23-300) U/L TSH (0.47-4.68) uIU/mL 12/26/19 12/26/19 12/26/19 Range/Units 15:50 15:50 17:30 WBC (4.5-11.0) X10^3/uL RBC (4.0-5.2) X10^6/uL Hgb (12.0-16.0) g/dL Hct (36-46) % MCV (80-100) fL MCH (26-34) PG MCHC (30-36) % RDW (11.6-14.8) % Plt Count (150-400) X10^3/uL Neut % (Auto) (50-75) % Lymph % (Auto) (25-40) % [place] % (Auto) (3-14) % Eos % (Auto) (2-4) % Baso % (Auto) (0-2) % Neut # (Auto) (7998-0330) /uL Lymph # (Auto) (7421-1888) /uL [place] # (Auto) (0-900) /uL Eos # (Auto) (0-450) /uL Baso # (Auto) (0-100) /uL PT (10.1-12.7) SECONDS INR (0.9-1.3) APTT (26.4-36.2) SECONDS Sodium (137-145) mmol/L Potassium (3.4-5.1) mmol/L Chloride (98-107) mmol/L Carbon Dioxide (22-32) mmol/L BUN (7-17) mg/dL Creatinine (0.52-1.04) mg/dL Estimated GFR (>60) mL/min BUN/Creatinine Ratio (6-22) Glucose (70-100) mg/dL Calcium (8.4-10.2) mg/dL Magnesium 1.7 (1.6-2.3) mg/dL Total Bilirubin (0.2-1.3) mg/dL AST (14-36) IU/L ALT (<35) IU/L Alkaline Phosphatase (38-126) U/L Total Creatine Kinase (30-135) U/L CK-MB (CK-2) CK-MB (CK-2) Rel Index Troponin I < 0.012 (0.01-0.034) ng/mL Total Protein (6.3-8.2) g/dL Albumin (3.5-5.0) g/dL Globulin (1.7-4.1) g/dL Albumin/Globulin Ratio (1.0-2.8) Lipase (23-300) U/L TSH 1.61 (0.47-4.68) uIU/mL Point of Care Testing Glucose POC 115 Urine Dip Bedside Urine Glucose Negative Bedside Urine Bilirubin - Negative Bedside Urine Ketone - Negative Urine Specific [place] 1.015 Bedside Urine Occult Blood - Negative Bedside Urine pH 6.0 Bedside Urine Protein - Negative Bedside Urine Urobilinogen - Negative Bedside Urine Nitrite - Negative Bedside Urine Leukocytes - Negative Esterase Imaging Data Chest x-ray: Radiologist's Impresson: PROCEDURE: XR CHEST 1V INDICATIONS: chest pain TECHNIQUE: One view of the chest was acquired. COMPARISON: [facility], , XR CHEST 1V, 02/04/2019, 15:20. FINDINGS: Surgical changes and devices: None. Lungs and pleura: Lungs are clear. No pleural effusions or pneumothorax. Mediastinum: Mediastinal contours appear normal. Heart size is normal. Bones and chest wall: No suspicious bony lesions. Overlying soft tissues appear unremarkable. IMPRESSION: No acute cardiopulmonary findings. Dictated by: Caridad Davies M.D. on 12/26/2019 at 15:33 ECG Data Attestation: I personally reviewed and interpreted this ECG as follows: Prior ECG tracings: available for review Interpretation: Bigeminy rate [address] changes similar to all previous EKGs MDM Narrative Medical decision making narrative: Patient has a vague complaints she is in and out of bigeminy she is given 2 doses a 2.5 mg of Lopressor when she is in normal sinus rhythm on the monitor for some time, I ask her how she is feeling and she says she still feels weird. She is able to get up and use the restroom. She has 2-troponins she overall is feeling much better after the 2nd dose of Lopressor. She is taking metoprolol once a day however I recommend that she take it twice a day for the next couple of days to see how she feels. She has a street sweeper in fact that is where her street sweeper also recommends. Discharge Plan Departure Patient Disposition: Home Clinical Impression: [place]olvi[place]y Instructions: DI for Palpitations Activity Restrictions/Additional Instructions: *You have been diagnosed with palpitations/bigeminy *What to do: Recommend following up with your primary care doctor and or street sweeper. You have gone in and out of bigeminy. Your blood work is overall reassuring *Continue to take medications as directed Increase metoprolol from once a day to twice a day for the next 2-3 days, in please follow-up with her street sweeper *Follow up with your primary care provider in 2-3 days *Return to ER if you should have increased chest discomfort heart palpitations dizziness passing out or any new, worsening or concerning symptoms Prescriptions: No Action atorvastatin 40 mg tablet 40 mg PO DAILY RF: 0 aspirin 81 mg tablet,delayed release (DR/EC) 81 mg PO DAILY RF: 0 alprazolam 0.25 mg tablet 0.25 mg PO PRN PRN (Reason: Panic Attack(S)) RF: 0 metoprolol succinate 25 mg tablet extended release 24 hr 25 mg PO DAILY RF: 0
[2019-12-26 15:57] LABS: Add Manual Diff / Slide Review NO; Basophils Absolute Auto 0 /uL (0-100); Basophils Percent Auto 0.4 % (0-2); Eosinophils Absolute Auto 100 /uL (0-450); Eosinophils Percent Auto 1.5 % (2-4); Hematocrit 43.1 % (36-46); Hemoglobin 14.4 g/dL (12.0-16.0); Lymphocytes Absolute Auto 2300 /uL (1100-4500); Mean Corpuscular HGB Conc 33.3 % (30-36); Mean Corpuscular Hemoglobin 30.1 PG (26-34); Mean Corpuscular Volume 90.3 fL (80-100); Monocytes Absolute Auto 700 /uL (0-900); Monocytes Percent Auto 8.7 % (3-14); Neutrophils Absolute Auto 4800 /uL (1500-7000); Neutrophils Percent Auto 60.4 % (50-75); Platelet Count 261 X10^3/uL (150-400); Red Blood Cell Count 4.77 X10^6/uL (4.0-5.2); Red Cell Distribution Width 14.4 % (11.6-14.8); White Blood Cell Count 7.9 X10^3/uL (4.5-11.0)
[2019-12-26 16:09] LABS: PTT Partial Thromboplastin Tim 31 SECONDS (26.4-36.2)
[2019-12-26 16:11] LABS: Alanine Aminotransferase 24 IU/L (<35); Albumin 4.5 g/dL (3.5-5.0); Albumin Globulin Ratio 1.4 (1.0-2.8); Alkaline Phosphatase 110 U/L (38-126); Aspartate Aminotransferase 27 IU/L (14-36); BUN Creatinine Ratio 17.9 (6-22); Bilirubin Total 0.4 mg/dL (0.2-1.3); Blood Urea Nitrogen 12 mg/dL (7-17); Calcium 9.2 mg/dL (8.4-10.2); Carbon Dioxide 31 mmol/L (22-32); Chloride 98 mmol/L (98-107); Creatine Kinase 53 U/L (30-135); Estimated Glomerular Filt Rate > 60.0 mL/min (>60); Globulin 3.2 g/dL (1.7-4.1); Glucose 109 mg/dL (70-100); HEMOLYSIS < 15 (0-50); Lipase 150 U/L (23-300); Potassium 3.7 mmol/L (3.4-5.1); Sodium 135 mmol/L (137-145); Total Protein 7.7 g/dL (6.3-8.2)
[2019-12-26 16:12] LABS: Magnesium 1.7 mg/dL (1.6-2.3)
[2019-12-26 16:23] LABS: Troponin I < 0.012 ng/mL (0.01-0.034)
[2019-12-26] MEDS: METOPROLOL TARTRATE 5 MG/5 ML INJ 2.5 MG IV ×2 (16:26→16:57)
[2019-12-26] MEDS: SODIUM CHLORIDE 0.9% 1,000 ML 1000 ML IV (16:26)
[2019-12-26 16:57] LABS: Thyroid Stimulating Hormone 1.61 uIU/mL (0.47-4.68)
[2019-12-26 18:00] LABS: Troponin I < 0.012 ng/mL (0.01-0.034)
== END 2019-12-26 18:12 | disposition home or self-care (01) ==
PROVIDERS: Emergency Provider Emergency Medicine
DX: R00.8 Other abnormalities of heart beat (principal); R42 Dizziness and giddiness; R07.9 Chest pain, unspecified
CPT/HCPCS: 36415; 71045; 80053; 81003; 82550; 82962; 83690; 83735; 84443; 84484; 85025; 85610; 85730; 93005; 96361; 96374; 96376; 99284

== ENCOUNTER 2020-06-18 15:24 | Emergency (ER) | payer OTHER, SELFPAY ==
[2020-06-18] VITALS (7 sets, daily range): BP systolic 138–180; BP diastolic 76–93; PULSE 68–92; RESP 14–21; TEMP 36.4; O2SAT 98–100
--- NOTE | 2020-06-18 15:34 | DI.RAD.S_ITS ---
PROCEDURE: XR CHEST 1V INDICATIONS: chest pain TECHNIQUE: One view of the chest was acquired. COMPARISON: [facility], , CHEST 2 VIEW, 07/20/2012, 18:29. [facility], , XR CHEST 1V, 02/04/2019, 15:20. [facility], , XR CHEST 1V, 12/26/2019, 16:11. FINDINGS: Surgical changes and devices: None. Lungs and pleura: Lungs are clear. No pleural effusions or pneumothorax. Mediastinum: Mediastinal contours appear normal. Heart size is normal. Bones and chest wall: No suspicious bony lesions. Overlying soft tissues appear unremarkable. IMPRESSION: Portable chest within normal limits. Dictated by: Guerrero Kuhn M.D. on 06/18/2020 at 15:32 Approved by: Guerrero Kuhn M.D. on 06/18/2020 at 15:33
[2020-06-18] MEDS: SODIUM CHLORIDE 0.9% 1,000 ML 150 ML IV (15:39)
[2020-06-18] MEDS: ASPIRIN 81 MG CHEW TAB 324 MG PO (15:39)
[2020-06-18 15:47] LABS: Add Manual Diff / Slide Review NO; Basophils Absolute Auto 0 /uL (0-100); Basophils Percent Auto 0.5 % (0-2); Eosinophils Absolute Auto 100 /uL (0-450); Eosinophils Percent Auto 1.4 % (2-4); Hematocrit 45.7 % (36-46); Hemoglobin 14.8 g/dL (12.0-16.0); Lymphocytes Absolute Auto 2400 /uL (1100-4500); Lymphocytes Percent Auto 30.5 % (25-40); Mean Corpuscular HGB Conc 32.5 % (30-36); Mean Corpuscular Hemoglobin 29.2 PG (26-34); Mean Corpuscular Volume 89.8 fL (80-100); Monocytes Absolute Auto 700 /uL (0-900); Monocytes Percent Auto 8.7 % (3-14); Neutrophils Absolute Auto 4600 /uL (1500-7000); Neutrophils Percent Auto 58.9 % (50-75); Platelet Count 265 X10^3/uL (150-400); Red Blood Cell Count 5.08 X10^6/uL (4.0-5.2); Red Cell Distribution Width 13.6 % (11.6-14.8); White Blood Cell Count 7.9 X10^3/uL (4.5-11.0)
--- NOTE | 2020-06-18 15:47 | ED_ITS ---
HPI - Chest Pain General Chief Complaint: Chest Pain Stated Complaint: Thinks heart is acting up again, pain in head also Time Seen by Provider: 06/18/20 15:30 Source: patient Mode of arrival: Ambulatory Limitations: no limitations History of Present Illness HPI narrative: 55-year-old female nonsmoker with history of hypertension, bigeminy, and prior CVA requiring alteplase presents with a chief complaint of 5 days of palpitations and chest uneasiness as well as right-sided headache. Her headache is moderate in intensity and she denies any provocation, palliation or radiation. She denies any neurologic symptoms such as blurred vision, trouble with speech, ambulation or focal weakness. She denies any fever, chills or neck pain. She denies any recent trauma. Her chest pain has been present for a week and she states constant in nature without any breaks. She states that she feels palpitations and squeezing, it makes her anxious and she feels like she can not breathe. She denies any provocation, palliation or radiation of her discomfort. She is unable to quantify but states that makes her uncomfortable. She denies any recent travel, history of blood clot or hemoptysis. MD complaint: chest pain Onset (ago): day(s) Duration: constant Pain location: substernal Severity: moderate Quality: aching Pain radiation: none Relieving factors: nothing Exacerbating factors: nothing Associated symptoms: palpitations Treatments prior to arrival chest pain: none Related Data On Oral Contraceptives: No Home Medications Medication Instructions Recorded Confirmed alprazolam 0.25 mg PO PRN PRN 02/04/19 02/04/19 aspirin 81 mg PO DAILY 02/04/19 atorvastatin 40 mg PO DAILY 02/04/19 02/04/19 metoprolol succinate 25 mg PO DAILY 02/04/19 02/04/19 Allergies Allergy/AdvReac Type Severity Reaction Status Date / Time promethazine [From Phenergan] Allergy Severe Hallucinati Verified 06/18/20 15:35 ng epinephrine Allergy Intermediate Seizure Verified 06/18/20 15:35 Review of Systems Constitutional Constitutional: Denies chills, Denies fatigue, Denies fever(s), Denies frequent falls, Reports headache(s), Denies lethargy and Denies weakness Eyes Eyes: Denies change in vision, Denies eye discharge, Denies irritation and Denies loss of vision ENT Ears, Nose, Mouth, and Throat: Denies change in voice, Denies dizziness, Reports headache(s), Denies neck pain, Denies sore throat and Denies throat swelling Cardiovascular Cardiovascular: Reports chest pain, Denies irregular heart rhythm, Denies l ightheadedness, Denies palpitations, Reports dyspnea, Denies dyspnea on exertion and Denies orthopnea Respiratory Respiratory: Denies cough, Reports dyspnea, Denies dyspnea on exertion and Denies wheezing Gastrointestinal Gastrointestinal: Denies abdominal pain, Denies change in bowel habits, Denies diarrhea, Denies nausea and Denies vomiting Musculoskeletal Musculoskeletal: Denies neck pain and Denies numbness Integumentary/Breasts Skin/Breast: Denies pruritus, Denies erythema, Denies rash and Denies wounds Neurologic Neurologic: Denies behavioral changes, Denies confusion, Denies dizziness, Denies frequent falls, Reports headache(s), Denies loss of vision, Denies numbness and Denies weakness Psychiatric Psychiatric: Denies anxiety, Denies behavioral changes, Denies confusion, Denies depression, Denies homicidal ideation and Denies suicidal ideation Endocrine Endocrine: Denies fatigue, Denies flushing and Denies palpitations Hematologic/Lymphatic Hematologic/Lymphatic: Denies easy bruising Allergic/Immunologic Allergic/Immunologic: Denies urticaria, Denies throat swelling and Denies wheezing Patient History Medical History (Updated 06/18/20 @ 17:02 by Dennis Vicente DO) Bigeminy CVA (cerebral vascular accident) Social History Smoking Status: Never smoker Smoking Status: Never smoker alcohol intake frequency: holidays/special occasions only Substance Use Type: does not use Exam Narrative Exam Narrative: GENERAL: [55] year old patient appears stated age. Well- nourished, well-developed patient, in mild distress. Very anxious HEAD: Atraumatic. Normocephalic. EYES: Pupils equal round and reactive. Extraocular motions intact. No scleral icterus. No injection or drainage. ENT: Nose without bleeding, purulent drainage. Throat without erythema, tonsillar hypertrophy or exudate. Airway patent. NECK: Trachea midline. Non tender CARDIOVASCULAR: Regular rate and rhythm without murmurs, gallops, or rubs. RESPIRATORY: Clear to auscultation. Breath sounds equal bilaterally. No wheezes, rales, or rhonchi. GASTROINTESTINAL: Abdomen soft, non-tender, nondistended. EXTREMITIES: No edema or joint tenderness. BACK: Nontender without deformity or crepitance. No flank tenderness. NEURO: AOx3. SKIN: No rash or erythema of visible areas NIH Stroke Scale 1a. LOC: Patient is alert and keenly responsive (0) 1b. LOC Questions: Patient answers both LOC questions accurately (0) 1c. LOC Commands: Patient performs both tasks correctly (0) 2. Best Gaze: Normal (0) 3. Visual: No visual loss (0) 4. Facial palsy: Normal symmetrical movements (0) 5. Motor arm: No drift (0) 6. Motor leg: No drift (0) 7. Limb ataxia: Absent (0) 8. Sensory: Normal (0) 9. Best language: No aphasia; normal (0) 10. Dysarthria: Normal (0) 11. Extinction and inattention: No abnormality (0) NIHSS: 0 Initial Vital Signs Initial Vital Signs: Vital Signs Temperature 97.6 F 06/18/20 15:30 Pulse Rate 92 H 06/18/20 15:30 Respiratory Rate 16 06/18/20 15:30 Blood Pressure 180/93 H 06/18/20 15:30 Pulse Oximetry 99 06/18/20 15:30 Scores PERC Score Age greater than or equal to 50 years: Yes Heart rate greater than or equal to 100 bpm: No Room Air O2 Sat less than 95%: No Unilateral leg swelling: No Recent trauma or surgery: No Hemoptysis: No Prior PE or DVT: No Hormone Use: No Total PERC Score: 1 Wells' Criteria for PE Clinical signs and symptoms of DVT: No PE is #1 Dx or equally likely: No Heart rate > 100: No Immobilization at least 3 days or surg in previous 4 weeks: No History of PE or DVT: No Hemoptysis: No Malignancy w/Treatment within 6 months or palliative: No Wells' PE Score total: 0 Course Orders Ordered: Discontinued Medications Aspirin (Aspirin 81 Mg Chew Tab) 324 mg PO NOW ONE Stop: 06/18/20 15:35 Last Admin: 06/18/20 15:39 Dose: 324 mg Documented by: SHELLY Sodium Chloride (Normal Saline 0.9%) 1,000 mls @ 150 mls/hr IV CONT ZACK Last Admin: 06/18/20 15:39 Dose: 150 mls/hr Documented by: SHELLY Ketorolac Tromethamine (Ketorolac 60 Mg/2 Ml Vial) 15 mg IV NOW ONE Stop: 06/18/20 16:51 Last Admin: 06/18/20 16:56 Dose: Not Given Documented by: PRATIMA Vital Signs Vital signs: Vital Signs - 8 hr 06/18/20 15:30 06/18/20 15:32 06/18/20 15:56 Temperature 97.6 F Pulse Rate 92 H 78 78 Respiratory Rate 16 14 21 Blood Pressure 180/93 H 180/93 H 161/84 H Pulse Oximetry 99 98 99 06/18/20 16:00 Temperature Pulse Rate 79 Respiratory Rate 16 Blood Pressure 165/79 H Pulse Oximetry 99 MDM - Chest Pain Lab Data Result diagrams: 06/18/20 15:40 06/18/20 15:40 Labs: Lab Results 06/18/20 06/18/20 06/18/20 Range/Units 15:40 15:40 16:06 WBC 7.9 (4.5-11.0) X10^3/uL RBC 5.08 (4.0-5.2) X10^6/uL Hgb 14.8 (12.0-16.0) g/dL Hct 45.7 (36-46) % MCV 89.8 (80-100) fL MCH 29.2 (26-34) PG MCHC 32.5 (30-36) % RDW 13.6 (11.6-14.8) % Plt Count 265 (150-400) X10^3/uL Neut % (Auto) 58.9 (50-75) % Lymph % (Auto) 30.5 (25-40) % [place] % (Auto) 8.7 (3-14) % Eos % (Auto) 1.4 L (2-4) % Baso % (Auto) 0.5 (0-2) % Neut # (Auto) 4600 (0200-8597) /uL Lymph # (Auto) 2400 (4860-4867) /uL [place] # (Auto) 700 (0-900) /uL Eos # (Auto) 100 (0-450) /uL Baso # (Auto) 0 (0-100) /uL PT 12.3 (10.1-12.7) SECONDS INR 1.1 (0.9-1.3) D-Dimer < 200 (<230) ng/mL Sodium 138 (137-145) mmol/L Potassium 4.0 (3.4-5.1) mmol/L Chloride 103 (98-107) mmol/L Carbon Dioxide 29 (22-32) mmol/L BUN 14 (7-17) mg/dL Creatinine 0.57 (0.52-1.04) mg/dL Estimated GFR > 60.0 (>60) mL/min BUN/Creatinine Ratio 24.6 H (6-22) Glucose 110 H (70-100) mg/dL Calcium 9.0 (8.4-10.2) mg/dL Total Bilirubin 0.3 (0.2-1.3) mg/dL AST 30 (14-36) IU/L ALT 27 (<35) IU/L Alkaline Phosphatase 120 (38-126) U/L Total Creatine Kinase 57 (30-135) U/L CK-MB (CK-2) TNP CK-MB (CK-2) Rel Index TNP Troponin I < 0.012 (0.01-0.034) ng/mL NT-Pro-B Natriuret Pep 128 H (<125) pg/mL Total Protein 8.0 (6.3-8.2) g/dL Albumin 4.5 (3.5-5.0) g/dL Globulin 3.5 (1.7-4.1) g/dL Albumin/Globulin Ratio 1.3 (1.0-2.8) Lipase 181 (23-300) U/L 06/18/20 Range/Units 16:06 WBC (4.5-11.0) X10^3/uL RBC (4.0-5.2) X10^6/uL Hgb (12.0-16.0) g/dL Hct (36-46) % MCV (80-100) fL MCH (26-34) PG MCHC (30-36) % RDW (11.6-14.8) % Plt Count (150-400) X10^3/uL Neut % (Auto) (50-75) % Lymph % (Auto) (25-40) % [place] % (Auto) (3-14) % Eos % (Auto) (2-4) % Baso % (Auto) (0-2) % Neut # (Auto) (0928-7128) /uL Lymph # (Auto) (5235-4236) /uL [place] # (Auto) (0-900) /uL Eos # (Auto) (0-450) /uL Baso # (Auto) (0-100) /uL PT (10.1-12.7) SECONDS INR (0.9-1.3) D-Dimer Cancelled (<230) ng/mL Sodium (137-145) mmol/L Potassium (3.4-5.1) mmol/L Chloride (98-107) mmol/L Carbon Dioxide (22-32) mmol/L BUN (7-17) mg/dL Creatinine (0.52-1.04) mg/dL Estimated GFR (>60) mL/min BUN/Creatinine Ratio (6-22) Glucose (70-100) mg/dL Calcium (8.4-10.2) mg/dL Total Bilirubin (0.2-1.3) mg/dL AST (14-36) IU/L ALT (<35) IU/L Alkaline Phosphatase (38-126) U/L Total Creatine Kinase (30-135) U/L CK-MB (CK-2) CK-MB (CK-2) Rel Index Troponin I (0.01-0.034) ng/mL NT-Pro-B Natriuret Pep (<125) pg/mL Total Protein (6.3-8.2) g/dL Albumin (3.5-5.0) g/dL Globulin (1.7-4.1) g/dL Albumin/Globulin Ratio (1.0-2.8) Lipase (23-300) U/L ECG Data Interpretation: Bigeminy HR 80. No ST elevation or depression. No T wave abnormality. MDM Narrative Medical decision making narrative: Multiple etiologies for patient's symptoms considered including, but not limited to: [Arrhythmia versus ischemia versus pulmonary embolism versus hypertension versus other Ischemia considered unlikely given persistent symptoms for 5 days, nonischemic findings on EKG, negative troponin. No exertional element or other red flag symptoms such as radiation, vomiting, diaphoresis Pulmonary embolism considered unlikely given negative D-dimer Hypertension considered a contributing element as her symptoms seem to be increased when her blood pressure is up. Furthermore she is much more symptomatic when in bigeminy then when the frequency of her PVCs decreases.] Patient's symptoms improved over duration of stay with above-stated therapies. Findings and discharge diagnosis discussed with patient/family followed by verbalization of understanding Return precautions discussed with patient/family whom verbalize understanding. Discharge Plan Departure Patient Disposition: Home Clinical Impression: Bigeminy Activity Restrictions/Additional Instructions: *You have been diagnosed with [atypical chest pain, possibly related to elevated blood pressure and/or bigeminy. No evidence of heart attack or blood clot.] *What to do: *Take medications as directed *Follow up with your primary care provider in 2-3 days, call for an appointment. Let them know you were seen in the Emergency Department and that we ask that you be seen in follow up *Return to ER if you should have any new, worsening or concerning symptoms Prescriptions: No Action atorvastatin 40 mg tablet 40 mg PO DAILY RF: 0 aspirin 81 mg tablet,delayed release (DR/EC) 81 mg PO DAILY RF: 0 alprazolam 0.25 mg tablet 0.25 mg PO PRN PRN (Reason: Panic Attack(S)) RF: 0 metoprolol succinate 25 mg tablet extended release 24 hr 25 mg PO DAILY RF: 0 Referrals: [facility] [Outside]
--- NOTE | 2020-06-18 15:52 | PC.NURSE ---
Patient came into the Ed with complaints of chest pain and pressure and took xanax and had no relief. He a month ago and has had an inability to grieve since her son is visiting with a seizure disorder that has seizures if he gets upset.
[2020-06-18 15:58] LABS: Alanine Aminotransferase 27 IU/L (<35); Albumin 4.5 g/dL (3.5-5.0); Albumin Globulin Ratio 1.3 (1.0-2.8); Alkaline Phosphatase 120 U/L (38-126); Aspartate Aminotransferase 30 IU/L (14-36); BUN Creatinine Ratio 24.6 (6-22); Bilirubin Total 0.3 mg/dL (0.2-1.3); Blood Urea Nitrogen 14 mg/dL (7-17); Carbon Dioxide 29 mmol/L (22-32); Chloride 103 mmol/L (98-107); Creatine Kinase 57 U/L (30-135); Estimated Glomerular Filt Rate > 60.0 mL/min (>60); Globulin 3.5 g/dL (1.7-4.1); Glucose 110 mg/dL (70-100); HEMOLYSIS 50 (0-50); Lipase 181 U/L (23-300); Sodium 138 mmol/L (137-145)
--- NOTE | 2020-06-18 16:00 | DI.CT.S_ITS ---
PROCEDURE: CT HEAD/BRAIN WO CON INDICATIONS: severe headache, HTN, history of stroke TECHNIQUE: Noncontrast 4.5 mm thick angled axial sections acquired from the foramen magnum to the vertex, with coronal and sagittal reformats. For radiation dose reduction, the following was used: automated exposure control, adjustment of mA and/or kV according to patient size. COMPARISON: [facility], CT, CT HEAD/BRAIN WO CON, 01/06/2019, 20:32. [facility], CT, CT ANGIO HEAD AND NECK, 01/06/2019, 22:58. [facility], CT, CT HEAD/BRAIN WO CON, 02/04/2019, 15:12. FINDINGS: Image quality: Excellent. CSF spaces: Basal cisterns are patent. No extra-axial fluid collections. Ventricles are normal in size and shape. Brain: No midline shift. No intracranial masses or hemorrhage. Mohan-white matter interface is normal. Skull and face: Calvarium and visualized facial bones are intact, without suspicious lesions. Sinuses: Visualized sinuses and mastoids are clear. IMPRESSION: No acute intracranial hemorrhage is seen. No acute intracranial process is seen. Dictated by: Guerrero Kuhn M.D. on 06/18/2020 at 15:45 Approved by: Guerrero Kuhn M.D. on 06/18/2020 at 15:46
[2020-06-18 16:10] LABS: NT-proBNP (BNP-Adult 18+) 128 pg/mL (<125); Troponin I < 0.012 ng/mL (0.01-0.034)
[2020-06-18 16:20] LABS: INR 1.1 (0.9-1.3); Prothrombin Time 12.3 SECONDS (10.1-12.7)
[2020-06-18 16:23] LABS: D Dimer < 200 ng/mL (<230)
--- NOTE | 2020-06-29 10:43 | PC.NURSE ---
Iv Normal saline infusion stopped at 1732.
== END 2020-06-18 17:32 | disposition home or self-care (01) ==
PROVIDERS: Emergency Provider Emergency Medicine
DX: I49.8 Other specified cardiac arrhythmias (principal); R07.9 Chest pain, unspecified; R51.9 Headache, unspecified; I10 Essential (primary) hypertension; Z86.73 Personal history of transient ischemic attack (TIA), and cerebral infarction without residual deficits; Z79.82 Long term (current) use of aspirin
CPT/HCPCS: 36415; 70450; 71045; 80053; 82550; 83690; 83880; 84484; 85025; 85379; 85610; 93005; 93010; 96360; 96361; 99283; 99284

== ENCOUNTER 2021-11-01 16:35 | Emergency (ER) | payer OTHER, SELFPAY ==
[2021-11-01] VITALS (16 sets, daily range): BP systolic 114–154; BP diastolic 56–78; PULSE 50–82; RESP 16–26; TEMP 37.1; O2SAT 96–100; BMI 24.0
--- NOTE | 2021-11-01 17:12 | DI.RAD.S_ITS ---
PROCEDURE: XR CHEST 1V INDICATIONS: chest pain TECHNIQUE: One view of the chest was acquired. COMPARISON: [facility], CR, XR CHEST 1V, 06/18/2020, 16:02. FINDINGS: Surgical changes and devices: None. Lungs and pleura: Lungs are clear. No pleural effusions or pneumothorax. Mediastinum: Mediastinal contours appear normal. Heart size is normal. Bones and chest wall: No suspicious bony lesions. Overlying soft tissues appear unremarkable. IMPRESSION: No evidence acute pulmonary process. Dictated by: Isaiah La M.D. on 11/01/2021 at 17:43 Approved by: Isaiah La M.D. on 11/01/2021 at 17:44
[2021-11-01 17:19] LABS: Add Manual Diff / Slide Review NO; Basophils Absolute Auto 0 /uL (0-100); Basophils Percent Auto 0.4 % (0-2); Eosinophils Absolute Auto 100 /uL (0-450); Eosinophils Percent Auto 1.5 % (2-4); Hematocrit 41.4 % (36-46); Hemoglobin 13.9 g/dL (12.0-16.0); Lymphocytes Absolute Auto 2200 /uL (1100-4500); Lymphocytes Percent Auto 33.3 % (25-40); Mean Corpuscular HGB Conc 33.7 % (30-36); Mean Corpuscular Hemoglobin 29.6 PG (26-34); Monocytes Absolute Auto 500 /uL (0-900); Monocytes Percent Auto 7.6 % (3-14); Neutrophils Absolute Auto 3700 /uL (1500-7000); Neutrophils Percent Auto 57.2 % (50-75); Platelet Count 230 X10^3/uL (150-400); Red Blood Cell Count 4.71 X10^6/uL (4.0-5.2); Red Cell Distribution Width 14.5 % (11.6-14.8); White Blood Cell Count 6.5 X10^3/uL (4.5-11.0)
[2021-11-01 17:31] LABS: Alanine Aminotransferase 28 IU/L (<35); Albumin 4.4 g/dL (3.5-5.0); Albumin Globulin Ratio 1.4 (1.0-2.8); Alkaline Phosphatase 129 U/L (38-126); Aspartate Aminotransferase 29 IU/L (14-36); Bilirubin Total 0.4 mg/dL (0.2-1.3); Blood Urea Nitrogen 13 mg/dL (7-17); Carbon Dioxide 30 mmol/L (22-32); Chloride 103 mmol/L (98-107); Creatine Kinase 59 U/L (30-135); Estimated Glomerular Filt Rate > 60 mL/min (>60); Globulin 3.2 g/dL (1.7-4.1); Glucose 105 mg/dL (70-100); HEMOLYSIS 16 (0-50); Lipase 161 U/L (23-300); Magnesium 1.8 mg/dL (1.6-2.3); Potassium 3.7 mmol/L (3.4-5.1); Sodium 140 mmol/L (137-145); Total Protein 7.6 g/dL (6.3-8.2)
[2021-11-01 17:41] LABS: Troponin I < 0.012 ng/mL (0.01-0.034)
[2021-11-01] MEDS: METOPROLOL TARTRATE 5 MG/5 ML INJ IV (17:44)
--- NOTE | 2021-11-01 18:51 | ED.CHESTPAIN ---
HPI - Chest Pain General Chief Complaint: Chest Pain Stated Complaint: Palpitations Time Seen by Provider: 11/01/21 18:12 Source: patient and EMS Mode of arrival: EMS Limitations: no limitations History of Present Illness HPI narrative: Patient here for palpitations and feeling foggy in her thoughts and tingling to both hands and feet. Patient has history of frequent PVCs. Followed by Dr. Robledo, her legal compliance officer at [facility]. Just saw him this past Friday for routine checkup. is schedule outpatient echocardiogram for routine checkup. Patient takes metoprolol succinate 25 m to 37.5 mg a night. Which took last night. During the day for breakthrough episodes, takes metoprolol tartrate 12.5 mg. Which she took today. Symptoms started at 2:00 p.m. today and has been sustained. Was at walk-in clinic and was sent here. 5 mg of metoprolol IV was given here. Still no resolution. Her resting heart rate is usually 50. On average she gets PVC episodes that are short duration on average twice a week that are not this severe. Related Data Home Medications Medication Instructions Recorded Confirmed alprazolam 0.25 mg tablet 0.25 mg PO PRN PRN Panic Attack(S) 02/04/19 02/04/19 aspirin 81 mg tablet,delayed 81 mg PO DAILY 02/04/19 release atorvastatin 40 mg tablet 40 mg PO DAILY 02/04/19 02/04/19 metoprolol succinate 25 mg 25 mg PO DAILY 02/04/19 02/04/19 tablet,extended release 24 hr Previous Rx's Medication Instructions Recorded diltiazem HCl 120 mg 120 mg PO QAM #14 caps 11/01/21 capsule,extended release 24 hr Allergies Allergy/AdvReac Type Severity Reaction Status Date / Time promethazine [From Phenergan] Allergy Severe Hallucinati Verified 06/18/20 15:35 ng epinephrine Allergy Intermediate Seizure Verified 06/18/20 15:35 Review of Systems Review of Systems Narrative: GENERAL: Denies chills, fatigue, malaise, fever, sweats. HEENT: Denies sinus pain, ear pain, sore throat RESPIRATORY: Denies dyspnea, cough CARDIOVASCULAR: Denies chest pain, positive for palpitations GASTROINTESTINAL: Denies nausea, vomiting, abdominal pain : Denies dysuria, frequency, hematuria MUSCULOSKELETAL: denies muscle or bony pain SKIN: Denies rash, skin lesions NEUROLOGIC: Denies weakness, numbness, positive for tingling ROS Unobtainable: All systems reviewed & are unremarkable except as noted in HPI and below Patient History Medical History (Updated 11/01/21 @ 20:48 by Aydin Merida MD) Bigeminy CVA (cerebral vascular accident) Social History Smoking Status: Never smoker Smoking Status: Never smoker alcohol intake frequency: holidays/special occasions only Substance Use Type: does not use Exam Narrative Exam Narrative: GENERAL: in no distress, not toxic not dyspneic HEAD: Normocephalic. EYES: Pupils equal round No scleral icterus. ENT: Mucous membranes moist. NECK: Trachea midline. CARDIOVASCULAR: Irregular rate and rhythm without murmurs RESPIRATORY: Clear to auscultation. Breath sounds equal bilaterally. No wheezes, rales, or rhonchi. GASTROINTESTINAL: Abdomen soft, non-tender EXTREMITIES: No gross deformities. BACK: No flank tenderness. NEURO: AOx4. SKIN: Warm and dry PSYCH: Not anxious, is cooperative Initial Vital Signs Initial Vital Signs: Vital Signs Pulse Rate 50 L 11/01/21 16:41 Pulse Oximetry 99 11/01/21 16:41 Course Course Course Narrative: No new issues during course of stay Orders Ordered: Discontinued Medications Diltiazem HCl (Diltiazem 5 Mg/Ml Sdv) 5 mg IV NOW ONE Stop: 11/01/21 19:02 Last Admin: 11/01/21 19:09 Dose: 5 mg Documented By: EB Diltiazem HCl (Diltiazem Sr 60 Mg) 120 mg PO NOW ONE Stop: 11/01/21 19:45 Last Admin: 11/01/21 19:49 Dose: 120 mg Documented By: HNG Metoprolol Tartrate (Metoprolol Tartrate 5 Mg/5 Ml Inj) 5 mg IV NOW ONE Stop: 11/01/21 17:40 Last Admin: 11/01/21 17:44 Dose: 5 mg Documented By: KB Reevaluation(s) Reevaluation #1: Patient feeling much better. Diminished PVCs on monitor. Cardizem has helped patient. She desires discharge home. Return precautions reviewed with her Time: 20:46 Consultations Consultation #1: Spoke with Cardiology, EP, Dr. Orozco, on-call for Dr. Robledo. Instructed to give Cardizem 5 mg or 10 mg IV here. Patient to start Cardizem 120 mg ER daily. Keep metoprolol succinate 25 mg at night. No metoprolol during the day. No urgent echocardiogram needed today. Can follow-up on office today for evaluation for possible PVC ablation Time: 19:01 Vital Signs Vital signs: Vital Signs - 8 hr 11/01/21 16:53 11/01/21 16:41 11/01/21 16:42 Temperature 98.7 F Pulse Rate 72 50 L Respiratory Rate 18 Blood Pressure 136/67 136/67 Pulse Oximetry 100 99 Oxygen Delivery Method Room Air 11/01/21 16:42 11/01/21 17:00 11/01/21 17:47 Temperature Pulse Rate 64 80 80 Respiratory Rate 20 26 H Blood Pressure 154/67 H Pulse Oximetry 99 100 99 Oxygen Delivery Method 11/01/21 18:01 11/01/21 18:31 11/01/21 19:00 Temperature Pulse Rate 58 L 82 67 Respiratory Rate 18 24 26 H Blood Pressure 114/56 L 120/58 L Pulse Oximetry 99 99 100 Oxygen Delivery Method Room Air 11/01/21 19:01 11/01/21 19:01 11/01/21 19:14 Temperature Pulse Rate 56 L Respiratory Rate 22 Blood Pressure 137/64 121/59 L Pulse Oximetry 100 Oxygen Delivery Method 11/01/21 19:14 Temperature Pulse Rate 63 Respiratory Rate 24 Blood Pressure Pulse Oximetry 100 Oxygen Delivery Method MDM - Chest Pain Differential Diagnosis Differential diagnosis: Likely other (Arrhythmia/PVC/SVT/AFib/a flutter) Lab Data Result diagrams: 11/01/21 17:00 11/01/21 17:00 Labs: Lab Results 11/01/21 11/01/21 11/01/21 Range/Units 17:00 17:00 17:00 WBC 6.5 (4.5-11.0) X10^3/uL RBC 4.71 (4.0-5.2) X10^6/uL Hgb 13.9 (12.0-16.0) g/dL Hct 41.4 (36-46) % MCV 88.0 (80-100) fL MCH 29.6 (26-34) PG MCHC 33.7 (30-36) % RDW 14.5 (11.6-14.8) % Plt Count 230 (150-400) X10^3/uL Neut % (Auto) 57.2 (50-75) % Lymph % (Auto) 33.3 (25-40) % [place] % (Auto) 7.6 (3-14) % Eos % (Auto) 1.5 L (2-4) % Baso % (Auto) 0.4 (0-2) % Neut # (Auto) 3700 (2048-1972) /uL Lymph # (Auto) 2200 (9647-7203) /uL [place] # (Auto) 500 (0-900) /uL Eos # (Auto) 100 (0-450) /uL Baso # (Auto) 0 (0-100) /uL Sodium 140 (137-145) mmol/L Potassium 3.7 (3.4-5.1) mmol/L Chloride 103 (98-107) mmol/L Carbon Dioxide 30 (22-32) mmol/L BUN 13 (7-17) mg/dL Creatinine 0.59 (0.52-1.04) mg/dL Estimated GFR > 60 (>60) mL/min BUN/Creatinine Ratio 22.0 (6-22) Glucose 105 H (70-100) mg/dL Calcium 9.0 (8.4-10.2) mg/dL Magnesium 1.8 (1.6-2.3) mg/dL Total Bilirubin 0.4 (0.2-1.3) mg/dL AST 29 (14-36) IU/L ALT 28 (<35) IU/L Alkaline Phosphatase 129 H (38-126) U/L Total Creatine Kinase 59 (30-135) U/L CK-MB (CK-2) TNP CK-MB (CK-2) Rel Index TNP Troponin I < 0.012 (0.01-0.034) ng/mL Total Protein 7.6 (6.3-8.2) g/dL Albumin 4.4 (3.5-5.0) g/dL Globulin 3.2 (1.7-4.1) g/dL Albumin/Globulin Ratio 1.4 (1.0-2.8) Lipase 161 (23-300) U/L TSH 1.13 (0.47-4.68) uIU/mL Imaging Data Chest x-ray: Radiologist's Impression: [place] [id number] [place] [id number] XRay Report Signed Patient: Halina Jones MR#: [id number] : 1965 Acct:[id number] Age/Sex: 56 / F Date of Service: 11/01/21 Loc: ED Accession Number: [id number] ?? Procedure: XR chest 1V Ordering Provider: Anayeli Deutsch D.O. PROCEDURE:? XR CHEST 1V ? INDICATIONS:? chest pain ? TECHNIQUE:? One view of the chest was acquired.? ? COMPARISON:? [facility], CR, XR CHEST 1V, 06/18/2020, 16:02. ? FINDINGS:? ? Surgical changes and devices:? None.? ? Lungs and pleura:? Lungs are clear.? No pleural effusions or pneumothorax.? ? Mediastinum:? Mediastinal contours appear normal.? Heart size is normal.? ? Bones and chest wall:? No suspicious bony lesions.? Overlying soft tissues appear unremarkable.? ? IMPRESSION:? No evidence acute pulmonary process. ? ? ? Dictated by: Isaiah La M.D. on 11/01/2021 at 17:43 ? ? Approved by: Isaiah La M.D. on 11/01/2021 at 17:44 ? ECG Data Interpretation: Sinus rhythm with frequent PVCs, rate 69. No ST elevation or depression MDM Narrative Medical decision making narrative: Appropriate for discharge home. Symptoms have resolved. Reviewed with electrophysiology legal compliance officer Dr. Orozco. Patient will continue new regimen of medication and follow-up in the office. Return precautions reviewed with patient. Exam and laboratory studies have been reassuring Discharge Plan Departure Patient Disposition: Home Clinical Impression: Frequent PVCs Instructions: DI for Arrhythmias Activity Restrictions/Additional Instructions: See your legal compliance officer within a week for re-evaluation. Call tomorrow for office appointment. Please continue new regimen of your medication. Please take your metoprolol succinate 25 mg at night. No metoprolol during the day. Please use new prescribed medication during the day Cardizem SR 120 mg in the morning. Return if worsening questions or concerns Prescriptions: New diltiazem HCl 120 mg capsule,extended release 24hr 120 mg PO QAM Qty: 14 0RF No Action atorvastatin 40 mg tablet 40 mg PO DAILY Label Comments: take 1 tablet by mouth once daily aspirin 81 mg tablet,delayed release (DR/EC) 81 mg PO DAILY Label Comments: take 1 tablet by mouth once daily alprazolam 0.25 mg tablet 0.25 mg PO PRN PRN (Reason: Panic Attack(S)) Label Comments: take 1 tablet by mouth up to twice a day if needed for PANIC Rx Instructions: up to tid metoprolol succinate 25 mg tablet extended release 24 hr 25 mg PO DAILY Label Comments: take 1 tablet by mouth once daily Referrals: Clark Ellison MD [Primary Care Provider] - Visit Report Forms: Patient Portal/API
[2021-11-01] MEDS: dilTIAZem 5 MG/ML SDV IV (19:09)
[2021-11-01 19:39] LABS: Thyroid Stimulating Hormone 1.13 uIU/mL (0.47-4.68)
[2021-11-01] MEDS: dilTIAZem SR 60 MG 120 MG PO (19:49)
--- NOTE | 2021-11-01 20:29 | PC.NURSE ---
Pt resting calmly in bed. Denies CP, SOB, dizziness. Pt does report decreased appetite. Skin is warm and dry. Pt is A&Ox4 and updated on her plan of care.
== END 2021-11-01 21:02 | disposition home or self-care (01) ==
PROVIDERS: Emergency Medicine; Emergency Provider Emergency Medicine; PCP Internal Medicine
DX: I49.3 Ventricular premature depolarization (principal); R07.9 Chest pain, unspecified
CPT/HCPCS: 36415; 71045; 80053; 82550; 83690; 83735; 84443; 84484; 85025; 93005; 93010; 96374; 96375; 99284

== ENCOUNTER → 2021-11-09 06:50 | Outpatient (CLI) | payer OTHER, SELFPAY ==
--- NOTE | 2021-11-09 06:52 | DI.ECHO.S_ITS ---
[place] [facility]---------+ [facility] +---------+ : : [address] : : : : [id number] : : : : Phone: [phone]+ Echocardiogram Report + + :Name: EMILY JAFFE Study Date: 11/09/2021 Height: 64 in : :[facility] ReadingLocation: Weight: 135 lb : : Gender: Female BSA: 1.7 m2 : :: 1965 Age: 56 yrs BP: 110/71 mmHg: :Reason For Study: Mitral Valve- Prolapse : :Ordering Physician: IVANNA, : :RADHA Performed By: Lauro Bar : :Referring: RADHA ROBLEDO : + + Interpretation Summary 1) Normal left ventricular thickness, size, wall motion, and systolic function (EF 55-60%). 2) Normal right ventricular size and function. 3) There is mild prolapse of the posterior mitral valve leaflet(s). 4) There is trace mitral regurgitation. 5) Compared to the Echo done 08/15/2016, no significant change. Procedure: A two-dimensional transthoracic echocardiogram with color flow and Doppler was performed. The study quality was technically adequate. Comparison is made with the echocardiogram of 08/15/2016. Left Ventricle: The left ventricle is normal in size and wall thickness. Left ventricular systolic function is normal. The ejection fraction is estimated to be 55-60%. There are no focal wall motion abnormalities. Diastolic parameters suggest probable normal left ventricular diastolic function and normal filling pressures. Right Ventricle: The right ventricle is normal in size and function. Atria: Both atria are normal in size. The interatrial septum grossly appears intact with no obvious evidence for an atrial septal defect. Mitral Valve: There is prolapse of the posterior mitral valve leaflet(s). There is mild mitral valve prolapse. There is trace mitral regurgitation. Aortic Valve: The aortic valve is normal in structure and function. There is trace aortic regurgitation. Tricuspid Valve: The tricuspid valve is normal in structure and function. There is mild tricuspid regurgitation. The right ventricular systolic pressure is estimated to be at least 18 mmHg based on an estimated right atrial pressure of 3 mm Hg. Pulmonic Valve: The pulmonic valve is normal in structure and function. There is no pulmonic valvular regurgitation. Great Vessels: The aortic root is normal size. The dimensions of the ascending aorta are normal. The IVC is of normal diameter and collapses greater than 50% with a sniff. This suggests a low right atrial pressure of 3 mm Hg. Pericardium/ Pleura There is no pericardial effusion. There is no pleural effusion. MMode/2D Measurements & Calculations LVIDd: 5.0 cm LVOT diam: 2.0 cm LVIDs: 3.3 cm Ao root diam: 2.8 cm FS: 33.3 % asc Aorta Diam: 3.3 cm IVSd: 0.85 cm LVPWd: 0.70 cm LV sigala. diameter/BSA (cm/m^2): 3.0 LV sys. diameter/BSA (cm/m^2): 2.0 LA dimension: 3.3 cm RA long axis: 4.2 cm LA A2 area: 15.4 cm2 LA A4 area: 14.5 cm2 LA length (vol): 4.5 cm LA vol: 42.0 ml LA vol index: 25.4 ml/m2 TAPSE_phl: 2.1 cm Doppler Measurements & Calculations Ao V2 max: 119.0 cm/sec LVOT Max Jose D: 87.5 cm/sec Ao V2 mean: 83.0 cm/sec LV V1 max P.1 mmHg Ao max P.0 mmHg LV V1 VTI: 21.6 cm Ao mean P.0 mmHg MARGIE(I,D): 2.5 cm2 Ao V2 VTI: 27.2 cm MARGIE(V,D): 2.3 cm2 sev ratio: 0.79 MARGIE indexed to BSA (cm^2/m^2): 1.5 MV E max jose d: 62.6 cm/sec TR max jose d: 195.0 cm/sec MV A max jose d: 53.1 cm/sec TR max P.2 mmHg MV E/A: 1.2 Med Peak E' Jose D: 9.6 cm/sec E/E' med: 6.5 Lat Peak E' Jose D: 12.4 cm/sec E/E' lat: 5.0 E/e' average: 5.8 MV dec time: 0.19 sec SV(LVOT): 67.9 ml AV VR_phl: 0.74 MARGIE(VTI)/BSA_phl: 1.5 MV P1/2t-pr_phl: 55.0 msec Reading Physician:09:21 AM
== END ==
PROVIDERS: PCP Internal Medicine; Referring Provider Internal Medicine Cardiovascular Disease; Visit Provider Internal Medicine Cardiovascular Disease
DX: I08.1 Rheumatic disorders of both mitral and tricuspid valves (principal)
CPT/HCPCS: 93306

== ENCOUNTER 2023-07-11 11:05 | Observation (INO) | payer OTHER, MEDICAID, SELFPAY ==
[2023-07-11] VITALS (7 sets, daily range): BP systolic 100–146; BP diastolic 65–86; PULSE 49–79; RESP 16–20; TEMP 36.3–36.6; O2SAT 95–940; BMI 21.3
[2023-07-11 11:47] LABS: Add Manual Diff / Slide Review NO; Basophils Absolute Auto 0 /uL (0-100); Basophils Percent Auto 0.2 % (0-2); Eosinophils Absolute Auto 0 /uL (0-450); Eosinophils Percent Auto 0.6 % (2-4); Hematocrit 41.8 % (36-46); Hemoglobin 14.1 g/dL (12.0-16.0); Lymphocytes Absolute Auto 1300 /uL (1100-4500); Lymphocytes Percent Auto 21.3 % (25-40); Mean Corpuscular HGB Conc 33.8 % (30-36); Mean Corpuscular Hemoglobin 30.4 PG (26-34); Mean Corpuscular Volume 90.1 fL (80-100); Monocytes Absolute Auto 500 /uL (0-900); Monocytes Percent Auto 7.8 % (3-14); Neutrophils Absolute Auto 4300 /uL (1500-7000); Neutrophils Percent Auto 70.1 % (50-75); Platelet Count 233 X10^3/uL (150-400); Red Blood Cell Count 4.64 X10^6/uL (4.0-5.2); Red Cell Distribution Width 13.8 % (11.6-14.8); White Blood Cell Count 6.1 X10^3/uL (4.5-11.0)
[2023-07-11 11:57] LABS: Alanine Aminotransferase 24 IU/L (<35); Albumin 4.2 g/dL (3.5-5.0); Albumin Globulin Ratio 1.3 (1.0-2.8); Alkaline Phosphatase 100 U/L (38-126); Aspartate Aminotransferase 25 IU/L (14-36); BUN Creatinine Ratio 14.8 (6-22); Bilirubin Total 0.5 mg/dL (0.2-1.3); Blood Urea Nitrogen 9 mg/dL (7-17); Calcium 9.2 mg/dL (8.4-10.2); Carbon Dioxide 31 mmol/L (22-32); Chloride 104 mmol/L (98-107); Estimated Glomerular Filt Rate > 60 mL/min (>60); Globulin 3.2 g/dL (1.7-4.1); Glucose 108 mg/dL (70-100); HEMOLYSIS < 15 (0-50); Lipase 89 U/L (23-300); Potassium 4.4 mmol/L (3.4-5.1); Sodium 139 mmol/L (137-145); Total Protein 7.4 g/dL (6.3-8.2)
--- NOTE | 2023-07-11 12:55 | PC.NURSE ---
when starting patient's IV patient states she does not want any pain meds, she does not like those kinds of things in her body. asked patient if ibuprofen or tylenol would be okay and she stated no. explained to patient that if we are not giving her pain meds, we cannot help with her pain.
--- NOTE | 2023-07-11 13:20 | ED.ABDPAIN ---
HPI - Abdominal Pain <Emilee Gupta PA-C - Last Filed: 07/11/23 20:05> General Chief Complaint: Abdominal Pain Stated Complaint: gallbladder attacks per pt Time Seen by Provider: 07/11/23 13:17 Source: patient Mode of arrival: Ambulatory History of Present Illness HPI narrative: Patient is a 58-year-old female presenting for evaluation of left lower quadrant pain times 1 day. She reports that this is her 4th episode of similar stomach pain since February. She describes the pain as a burning sensation which has lessened in severity since taking Mylanta earlier today. She notes the pain started last night and kept her awake all night. She reports increased urinary frequency but denies pain with urination or urgency. She does endorse a feeling of pressure when standing causing her to feel like she is to urinate. She denies any chest pain, shortness of Breath, any fever, body aches, diarrhea or bloody stool. She states that since these episodes started in February, she has adjusted her diet such that she avoids meat, butter and excess oils which generally helps her avoid triggering this pain until recently. She states she has generally been able to eat roasted vegetables without triggering the pain. She is specifically concerned about possible gallbladder disease. She states she has lost 20 lb since February. She reports that she has never had a colonoscopy, but has been having a regular stool test done with no red flags. She states that she had nausea and 2 episodes of vomiting this morning. She states that her nausea has abated at this time, but her abdominal pain is continuing but slightly decreased. She reports undergoing menopause 5 years ago. She denies any previous abdominal surgeries. She reports she last ate yesterday evening. 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 She denies taking anticoagulants. She defers any pain medication today. Related Data Home Medications Medication Instructions Recorded Confirmed atorvastatin 40 mg tablet 40 mg PO DAILY 02/04/19 07/11/23 metoprolol succinate 25 mg 25 mg PO DAILY 02/04/19 07/11/23 tablet,extended release 24 hr alprazolam 0.5 mg tablet 0.5 mg PO BID PRN anxiety 07/11/23 07/11/23 Previous Rx's Medication Instructions Recorded diltiazem HCl 120 mg 120 mg PO QAM #14 caps 11/01/21 capsule,extended release 24 hr ibuprofen 600 mg tablet 600 mg PO Q8H PRN pain #20 tabs 07/14/23 Allergies Allergy/AdvReac Type Severity Reaction Status Date / Time promethazine [From Phenergan] Allergy Severe Hallucinati Verified 07/11/23 11:19 ng epinephrine Allergy Intermediate Seizure Verified 07/11/23 11:19 Review of Systems <Emilee Gupta PA-C - Last Filed: 07/11/23 20:05> Review of Systems Narrative: See HPI Patient History <Emilee Gupta PA-C - Last Filed: 07/11/23 20:05> Medical History (Updated 07/11/23 @ 17:55 by Emiele Gupta PA-C) Bigeminy CVA (cerebral vascular accident) Social History Smoking Status: Never smoker alcohol intake: current Smoking Status: Never smoker alcohol intake frequency: holidays/special occasions only Substance Use Type: does not use Exam <Emilee Gupta PA-C - Last Filed: 07/11/23 20:05> Initial Vital Signs Initial Vital Signs: Vital Signs Temperature 97.4 F L 07/11/23 11:13 Pulse Rate 79 07/11/23 11:13 Respiratory Rate 16 07/11/23 11:13 Blood Pressure 146/77 H 07/11/23 11:13 Pulse Oximetry 98 07/11/23 11:13 Oxygen Delivery Method Room Air 07/11/23 11:13 GENERAL: 58 year old patient appears stated age. Well-developed patient, in no acute distress. HEAD: Atraumatic. Normocephalic. EYES: Pupils equal round and reactive. No scleral icterus. No injection or drainage. NECK: Trachea midline. Non tender. No peritonsillar nor submandibular nor cervical lymphadenopathy appreciated. CARDIOVASCULAR: Regular rate and rhythm without murmurs, gallops, or rubs. RESPIRATORY: Clear to auscultation. Breath sounds equal bilaterally. No wheezes, rales, or rhonchi. GASTROINTESTINAL: Bowel sounds present, abdomen soft, tender in left lower quadrant, nontender in right upper quadrant, negative Ashton sign, no rebound tenderness present BACK: Nontender without deformity or crepitance. No flank tenderness. NEURO: AOx3. SKIN: No rash or erythema of visible areas <Reilly Hutchison MD - Last Filed: 08/02/23 14:44> Initial Vital Signs Initial Vital Signs: Vital Signs Temperature 97.4 F L 07/11/23 11:13 Pulse Rate 79 07/11/23 11:13 Respiratory Rate 16 07/11/23 11:13 Blood Pressure 146/77 H 07/11/23 11:13 Pulse Oximetry 98 07/11/23 11:13 Oxygen Delivery Method Room Air 07/11/23 11:13 Course <Emilee Gupta PA-C - Last Filed: 07/11/23 20:05> Orders Ordered: Discontinued Medications Acetaminophen (Acetaminophen 325 Mg Tablet) 650 mg PO Q6H PRN PRN Reason: Fever/Mild Pain (1-3) Acetaminophen (Acetaminophen 325 Mg Tablet) 975 mg PO NOW PRN PRN Reason: Pain, Moderate (4-6) Albuterol (Albuterol 2.5 Mg/3 Ml Neb (Adult)) 2.5 mg INH NOW PRN PRN Reason: Coughing, Wheezing, Dyspnea Alprazolam (Alprazolam 0.25 Mg Tablet) 0.5 mg PO BID PRN PRN Reason: Anxiety Alprazolam (Alprazolam 0.25 Mg Tablet) 0.25 mg PO Q6H PRN PRN Reason: Anxiety Last Admin: 07/13/23 05:14 Dose: 0.25 mg Documented By: Admin: 07/12/23 21:20 Dose: 0.25 mg Documented By: MICHELA Alprazolam (Alprazolam 0.25 Mg Tablet) 0.5 mg PO Q6H PRN PRN Reason: Anxiety Last Admin: 07/13/23 22:48 Dose: 0.5 mg Documented By: RICHA Atorvastatin Calcium (Atorvastatin 20 Mg Tablet) 40 mg PO DAILY [facility] Last Admin: 07/14/23 08:46 Dose: Not Given Documented By: Admin: 07/13/23 08:59 Dose: Not Given Documented By: AURELIO Bupivacaine HCl (Bupivacaine 0.5% (Pf) 30 Ml Vial) 30 ml INJ NOW ONE Stop: 07/12/23 11:25 Last Admin: 07/12/23 11:24 Dose: 24 ml Documented By: Diltiazem HCl (Diltiazem Cd 120 Mg Cap) 120 mg PO DAILY [facility] Last Admin: 07/12/23 14:59 Dose: Not Given Documented By: FLORA Diltiazem HCl (Diltiazem Cd 120 Mg Cap) 120 mg PO DAILY [facility] Last Admin: 07/14/23 08:46 Dose: Not Given Documented By: Admin: 07/13/23 08:59 Dose: 120 mg Documented By: AURELIO Hydromorphone HCl (Hydromorphone 0.5 Mg Inj) 0.5 mg IV Q2H PRN PRN Reason: Pain, Severe (7-10) Hydromorphone HCl (Hydromorphone 1 Mg Inj) 0 mg IV Q5MIN PRN PRN Reason: Pain, Moderate (4-6) Hydromorphone HCl (Hydromorphone 1 Mg Inj) 0 mg IV Q5MIN PRN PRN Reason: Pain, Mild (1-3) Hydroxyzine HCl (Hydroxyzine 50 Mg/Ml Inj) 25 mg IM NOW PRN PRN Reason: Pain, Mild (1-3) Piperacillin Sod/Tazobactam (Sod 3.375 gm/ Sodium Chloride) 100 mls @ 25 mls/hr IV Q8H [facility] Stop: 07/11/23 19:01 Last Admin: 07/11/23 20:44 Dose: Not Given Documented By: MICHELA Piperacillin Sod/Tazobactam (Sod 3.375 gm/ Sodium Chloride) 100 mls @ 25 mls/hr IV Q8H [facility] Stop: 07/12/23 00:49 Last Admin: 07/11/23 20:52 Dose: 25 mls/hr Documented By: MICHELA Lactated Ringer's (Lactated Ringers) 1,000 mls @ 42 mls/hr IV CONT [facility] Last Admin: 07/12/23 14:58 Dose: Not Given Documented By: FLORA Lactated Ringer's (Lactated Ringers) 1,000 mls @ 42 mls/hr IV NOW ONE Stop: 07/13/23 10:29 Last Infusion: 07/12/23 12:43 Dose: 42 mls/hr Documented By: Admin: 07/12/23 10:41 Dose: 42 mls/hr Documented By: LILLY Cefazolin Sodium/Dextrose (Ancef) 100 mls @ 200 mls/hr IV NOW ONE Stop: 07/12/23 11:11 Last Admin: 07/12/23 14:59 Dose: Not Given Documented By: FLORA Piperacillin Sod/Tazobactam (Sod 3.375 gm/ Sodium Chloride) 100 mls @ 200 mls/hr IV NOW ONE Stop: 07/12/23 11:13 Last Infusion: 07/12/23 11:18 Dose: Infused Documented By: Admin: 07/12/23 11:08 Dose: 200 mls/hr Documented By: MEDINA Acetaminophen (Ofirmev) 1,000 mg in 100 mls @ 400 mls/hr IV NOW ONE Stop: 07/12/23 11:42 Last Infusion: 07/12/23 11:45 Dose: Infused Documented By: Admin: 07/12/23 11:27 Dose: 400 mls/hr Documented By: MEDINA Ibuprofen (Ibuprofen 600 Mg Tablet) 600 mg PO Q6H PRN PRN Reason: Fever/Mild Pain (1-3) Ibuprofen (Ibuprofen 600 Mg Tablet) 600 mg PO Q6HR PRN PRN Reason: Fever/Mild Pain (1-3) Last Admin: 07/14/23 08:45 Dose: 600 mg Documented By: Admin: 07/13/23 20:46 Dose: 600 mg Documented By: RICHA Ketorolac Tromethamine (Ketorolac 30 Mg/Ml Vial) 15 mg IV Q6H PRN PRN Reason: Pain, Severe (7-10) Stop: 07/17/23 20:15 Last Admin: 07/13/23 12:24 Dose: 15 mg Documented By: Admin: 07/13/23 05:14 Dose: 15 mg Documented By: Admin: 07/12/23 21:19 Dose: 15 mg Documented By: MICHELA Meperidine HCl (Meperidine 50 Mg/Ml Inj) 12.5 mg IV PACUNOW PRN PRN Reason: Mild pain or shivering Metoclopramide HCl (Metoclopramide 10 Mg/2 Ml Inj) 10 mg IV NOW PRN PRN Reason: Nausea And Vomiting Metoprolol Succinate (Metoprolol Er 25 Mg Tablet) 25 mg PO BEDTIME [facility] Last Admin: 07/11/23 22:05 Dose: 25 mg Documented By: JOSIANE Metoprolol Succinate (Metoprolol Er 25 Mg Tablet) 25 mg PO DAILY [facility] Metoprolol Succinate (Metoprolol Er 25 Mg Tablet) 25 mg PO BEDTIME [facility] Last Admin: 07/13/23 20:49 Dose: Not Given Documented By: Admin: 07/13/23 01:29 Dose: Not Given Documented By: MICHELA Naloxone HCl (Naloxone 0.4 Mg/Ml Vial) 0.2 mg IV Q2MIN PRN PRN Reason: Opiate Reversal Ondansetron HCl (Ondansetron 4 Mg/2 Ml Inj) 4 mg IV NOW PRN PRN Reason: Nausea And Vomiting Ondansetron HCl (Ondansetron 4 Mg Odt) 4 mg PO NOW PRN PRN Reason: Nausea And Vomiting Ondansetron HCl (Ondansetron 4 Mg/2 Ml Inj) 4 mg IV NOW PRN PRN Reason: Nausea And Vomiting Oxycodone HCl (Oxycodone Ir 5 Mg Tablet) 5 mg PO Q3H PRN PRN Reason: Pain, Moderate (4-6) Oxycodone HCl (Oxycodone Ir 5 Mg Tablet) 5 mg PO PACUNOW PRN PRN Reason: Mild or moderate pain Vital Signs Vital signs: Vital Signs - 8 hr 07/11/23 16:03 Pulse Rate 49 L Respiratory Rate 18 Blood Pressure 117/71 Pulse Oximetry 99 Oxygen Delivery Method Room Air <Reilly Hutchison MD - Last Filed: 08/02/23 14:44> Orders Ordered: Discontinued Medications Acetaminophen (Acetaminophen 325 Mg Tablet) 650 mg PO Q6H PRN PRN Reason: Fever/Mild Pain (1-3) Acetaminophen (Acetaminophen 325 Mg Tablet) 975 mg PO NOW PRN PRN Reason: Pain, Moderate (4-6) Albuterol (Albuterol 2.5 Mg/3 Ml Neb (Adult)) 2.5 mg INH NOW PRN PRN Reason: Coughing, Wheezing, Dyspnea Alprazolam (Alprazolam 0.25 Mg Tablet) 0.5 mg PO BID PRN PRN Reason: Anxiety Alprazolam (Alprazolam 0.25 Mg Tablet) 0.25 mg PO Q6H PRN PRN Reason: Anxiety Last Admin: 07/13/23 05:14 Dose: 0.25 mg Documented By: Admin: 07/12/23 21:20 Dose: 0.25 mg Documented By: MICHELA Alprazolam (Alprazolam 0.25 Mg Tablet) 0.5 mg PO Q6H PRN PRN Reason: Anxiety Last Admin: 07/13/23 22:48 Dose: 0.5 mg Documented By: RICHA Atorvastatin Calcium (Atorvastatin 20 Mg Tablet) 40 mg PO DAILY [facility] Last Admin: 07/14/23 08:46 Dose: Not Given Documented By: Admin: 07/13/23 08:59 Dose: Not Given Documented By: AURELIO Bupivacaine HCl (Bupivacaine 0.5% (Pf) 30 Ml Vial) 30 ml INJ NOW ONE Stop: 07/12/23 11:25 Last Admin: 07/12/23 11:24 Dose: 24 ml Documented By: Diltiazem HCl (Diltiazem Cd 120 Mg Cap) 120 mg PO DAILY [facility] Last Admin: 07/12/23 14:59 Dose: Not Given Documented By: FLORA Diltiazem HCl (Diltiazem Cd 120 Mg Cap) 120 mg PO DAILY [facility] Last Admin: 07/14/23 08:46 Dose: Not Given Documented By: Admin: 07/13/23 08:59 Dose: 120 mg Documented By: AURELIO Hydromorphone HCl (Hydromorphone 0.5 Mg Inj) 0.5 mg IV Q2H PRN PRN Reason: Pain, Severe (7-10) Hydromorphone HCl (Hydromorphone 1 Mg Inj) 0 mg IV Q5MIN PRN PRN Reason: Pain, Moderate (4-6) Hydromorphone HCl (Hydromorphone 1 Mg Inj) 0 mg IV Q5MIN PRN PRN Reason: Pain, Mild (1-3) Hydroxyzine HCl (Hydroxyzine 50 Mg/Ml Inj) 25 mg IM NOW PRN PRN Reason: Pain, Mild (1-3) Piperacillin Sod/Tazobactam (Sod 3.375 gm/ Sodium Chloride) 100 mls @ 25 mls/hr IV Q8H [facility] Stop: 07/11/23 19:01 Last Admin: 07/11/23 20:44 Dose: Not Given Documented By: MICHELA Piperacillin Sod/Tazobactam (Sod 3.375 gm/ Sodium Chloride) 100 mls @ 25 mls/hr IV Q8H [facility] Stop: 07/12/23 00:49 Last Admin: 07/11/23 20:52 Dose: 25 mls/hr Documented By: MICHELA Lactated Ringer's (Lactated Ringers) 1,000 mls @ 42 mls/hr IV CONT [facility] Last Admin: 07/12/23 14:58 Dose: Not Given Documented By: FLORA Lactated Ringer's (Lactated Ringers) 1,000 mls @ 42 mls/hr IV NOW ONE Stop: 07/13/23 10:29 Last Infusion: 07/12/23 12:43 Dose: 42 mls/hr Documented By: Admin: 07/12/23 10:41 Dose: 42 mls/hr Documented By: LILLY Cefazolin Sodium/Dextrose (Ancef) 100 mls @ 200 mls/hr IV NOW ONE Stop: 07/12/23 11:11 Last Admin: 07/12/23 14:59 Dose: Not Given Documented By: FLORA Piperacillin Sod/Tazobactam (Sod 3.375 gm/ Sodium Chloride) 100 mls @ 200 mls/hr IV NOW ONE Stop: 07/12/23 11:13 Last Infusion: 07/12/23 11:18 Dose: Infused Documented By: Admin: 07/12/23 11:08 Dose: 200 mls/hr Documented By: MEDINA Acetaminophen (Ofirmev) 1,000 mg in 100 mls @ 400 mls/hr IV NOW ONE Stop: 07/12/23 11:42 Last Infusion: 07/12/23 11:45 Dose: Infused Documented By: Admin: 07/12/23 11:27 Dose: 400 mls/hr Documented By: MEDINA Ibuprofen (Ibuprofen 600 Mg Tablet) 600 mg PO Q6H PRN PRN Reason: Fever/Mild Pain (1-3) Ibuprofen (Ibuprofen 600 Mg Tablet) 600 mg PO Q6HR PRN PRN Reason: Fever/Mild Pain (1-3) Last Admin: 07/14/23 08:45 Dose: 600 mg Documented By: Admin: 07/13/23 20:46 Dose: 600 mg Documented By: RICHA Ketorolac Tromethamine (Ketorolac 30 Mg/Ml Vial) 15 mg IV Q6H PRN PRN Reason: Pain, Severe (7-10) Stop: 07/17/23 20:15 Last Admin: 07/13/23 12:24 Dose: 15 mg Documented By: Admin: 07/13/23 05:14 Dose: 15 mg Documented By: Admin: 07/12/23 21:19 Dose: 15 mg Documented By: MICHELA Meperidine HCl (Meperidine 50 Mg/Ml Inj) 12.5 mg IV PACUNOW PRN PRN Reason: Mild pain or shivering Metoclopramide HCl (Metoclopramide 10 Mg/2 Ml Inj) 10 mg IV NOW PRN PRN Reason: Nausea And Vomiting Metoprolol Succinate (Metoprolol Er 25 Mg Tablet) 25 mg PO BEDTIME [facility] Last Admin: 07/11/23 22:05 Dose: 25 mg Documented By: JOSIANE Metoprolol Succinate (Metoprolol Er 25 Mg Tablet) 25 mg PO DAILY [facility] Metoprolol Succinate (Metoprolol Er 25 Mg Tablet) 25 mg PO BEDTIME [facility] Last Admin: 07/13/23 20:49 Dose: Not Given Documented By: Admin: 07/13/23 01:29 Dose: Not Given Documented By: MICHELA Naloxone HCl (Naloxone 0.4 Mg/Ml Vial) 0.2 mg IV Q2MIN PRN PRN Reason: Opiate Reversal Ondansetron HCl (Ondansetron 4 Mg/2 Ml Inj) 4 mg IV NOW PRN PRN Reason: Nausea And Vomiting Ondansetron HCl (Ondansetron 4 Mg Odt) 4 mg PO NOW PRN PRN Reason: Nausea And Vomiting Ondansetron HCl (Ondansetron 4 Mg/2 Ml Inj) 4 mg IV NOW PRN PRN Reason: Nausea And Vomiting Oxycodone HCl (Oxycodone Ir 5 Mg Tablet) 5 mg PO Q3H PRN PRN Reason: Pain, Moderate (4-6) Oxycodone HCl (Oxycodone Ir 5 Mg Tablet) 5 mg PO PACUNOW PRN PRN Reason: Mild or moderate pain Vital Signs Vital signs: Vital Signs - 8 hr 07/11/23 16:03 Pulse Rate 49 L Respiratory Rate 18 Blood Pressure 117/71 Pulse Oximetry 99 Oxygen Delivery Method Room Air MDM - Abdominal Pain <Emilee Gupta PA-C - Last Filed: 07/11/23 20:05> Lab Data 07/11/23 11:30 07/11/23 11:30 Labs: Lab Results 07/11/23 Range/Units 11:30 WBC 6.1 (4.5-11.0) X10^3/uL RBC 4.64 (4.0-5.2) X10^6/uL Hgb 14.1 (12.0-16.0) g/dL Hct 41.8 (36-46) % MCV 90.1 (80-100) fL MCH 30.4 (26-34) PG MCHC 33.8 (30-36) % RDW 13.8 (11.6-14.8) % Plt Count 233 (150-400) X10^3/uL Neut % (Auto) 70.1 (50-75) % Lymph % (Auto) 21.3 L (25-40) % [place] % (Auto) 7.8 (3-14) % Eos % (Auto) 0.6 L (2-4) % Baso % (Auto) 0.2 (0-2) % Neut # (Auto) 4300 (9840-5089) /uL Lymph # (Auto) 1300 (1731-4815) /uL [place] # (Auto) 500 (0-900) /uL Eos # (Auto) 0 (0-450) /uL Baso # (Auto) 0 (0-100) /uL Sodium 139 (137-145) mmol/L Potassium 4.4 (3.4-5.1) mmol/L Chloride 104 (98-107) mmol/L Carbon Dioxide 31 (22-32) mmol/L BUN 9 (7-17) mg/dL Creatinine 0.61 (0.52-1.04) mg/dL Estimated GFR > 60 (>60) mL/min BUN/Creatinine Ratio 14.8 (6-22) Glucose 108 H (70-100) mg/dL Calcium 9.2 (8.4-10.2) mg/dL Total Bilirubin 0.5 (0.2-1.3) mg/dL AST 25 (14-36) IU/L ALT 24 (<35) IU/L Alkaline Phosphatase 100 (38-126) U/L Total Protein 7.4 (6.3-8.2) g/dL Albumin 4.2 (3.5-5.0) g/dL Globulin 3.2 (1.7-4.1) g/dL Albumin/Globulin Ratio 1.3 (1.0-2.8) Lipase 89 (23-300) U/L Point of care testing: Urine Dip Bedside Urine Glucose Negative Bedside Urine Bilirubin - Negative Bedside Urine Ketone - Negative Urine Specific [place] 1.015 Bedside Urine Occult Blood - Negative Bedside Urine pH 8.0 Bedside Urine Protein - Negative Bedside Urine Urobilinogen - Negative Bedside Urine Nitrite - Negative Bedside Urine Leukocytes - Negative Esterase ECG Data Interpretation: Compared with EKG 10/22/2021, no significant changes. No ST elevation noted nor T-wave inversions present. Intervals within normal limits. Normal axis deviation. MDM Narrative Medical decision making narrative: Patient is a 58-year-old female presenting for evaluation of left lower quadrant pain occurring on and off for the last 5 months. She reports that the pain is a burning sensation somewhat improved after taking Mylanta at home. Patient is presenting with which she believes is her 4th episode of similar pain. She endorses nausea this morning with 2 episodes of vomiting. Denies history of abdominal surgeries. Reports she last ate dinner last night. No intake today. She endorses 20 lb of weight loss since February. POC UA shows no evidence of nitrites nor leukocyte esterase nor blood EKG appears unchanged from 10/22/2021, no evidence of ST elevation or T-wave inversion noted CBC shows no elevation white cell count, hemoglobin is within normal limits, no abnormality within CMP, alk-phos is [address] Hutchison today. We will proceed with CT abdomen and pelvis with contrast. Patient denies receiving contrast in the past. 1549 CT imaging results show likely cholecystitis and recommend confirmation with ultrasound of gallbladder Review of ultrasound of gallbladder shows thickening of gallbladder wall as well as a 2.[address] Hollingsworth of general surgery who recommends patient be admitted. Discussed with patient and she is agreeable with this plan of care. Multiple etiologies for patient's symptoms considered including, but not limited to: Cholecystitis, UTI, kidney stone, pyelonephritis Over course of stay, patient reports improvement in her pain because she has stayed still and has not eaten. <Reilly Hutchison MD - Last Filed: 08/02/23 14:44> Lab Data Labs: Lab Results 07/11/23 Range/Units 11:30 WBC 6.1 (4.5-11.0) X10^3/uL RBC 4.64 (4.0-5.2) X10^6/uL Hgb 14.1 (12.0-16.0) g/dL Hct 41.8 (36-46) % MCV 90.1 (80-100) fL MCH 30.4 (26-34) PG MCHC 33.8 (30-36) % RDW 13.8 (11.6-14.8) % Plt Count 233 (150-400) X10^3/uL Neut % (Auto) 70.1 (50-75) % Lymph % (Auto) 21.3 L (25-40) % [place] % (Auto) 7.8 (3-14) % Eos % (Auto) 0.6 L (2-4) % Baso % (Auto) 0.2 (0-2) % Neut # (Auto) 4300 (0076-0495) /uL Lymph # (Auto) 1300 (5390-1482) /uL [place] # (Auto) 500 (0-900) /uL Eos # (Auto) 0 (0-450) /uL Baso # (Auto) 0 (0-100) /uL Sodium 139 (137-145) mmol/L Potassium 4.4 (3.4-5.1) mmol/L Chloride 104 (98-107) mmol/L Carbon Dioxide 31 (22-32) mmol/L BUN 9 (7-17) mg/dL Creatinine 0.61 (0.52-1.04) mg/dL Estimated GFR > 60 (>60) mL/min BUN/Creatinine Ratio 14.8 (6-22) Glucose 108 H (70-100) mg/dL Calcium 9.2 (8.4-10.2) mg/dL Total Bilirubin 0.5 (0.2-1.3) mg/dL AST 25 (14-36) IU/L ALT 24 (<35) IU/L Alkaline Phosphatase 100 (38-126) U/L Total Protein 7.4 (6.3-8.2) g/dL Albumin 4.2 (3.5-5.0) g/dL Globulin 3.2 (1.7-4.1) g/dL Albumin/Globulin Ratio 1.3 (1.0-2.8) Lipase 89 (23-300) U/L Point of care testing: Urine Dip Bedside Urine Glucose Negative Bedside Urine Bilirubin - Negative Bedside Urine Ketone - Negative Urine Specific [place] 1.015 Bedside Urine Occult Blood - Negative Bedside Urine pH 8.0 Bedside Urine Protein - Negative Bedside Urine Urobilinogen - Negative Bedside Urine Nitrite - Negative Bedside Urine Leukocytes - Negative Esterase Discharge Plan Departure Patient Disposition: Admitted As Inpatient Clinical Impression: Cholecystitis Admit Date/Time: 07/11/23 17:44 Admit Provider: Olayinka Hollingsworth ED Sign-out <Reilly Hutchison MD - Last Filed: 08/02/23 14:44> Cosign ED Attending Cosignature Attestation: Case was discussed, agree with the above documentation and plan
--- NOTE | 2023-07-11 14:25 | DI.CT.S_ITS ---
PROCEDURE: CT ABDOMEN PELVIS W CON INDICATIONS: abd pain TECHNIQUE: After the administration of intravenous contrast, axial sections acquired from the lung bases to the pubic symphysis. Coronal and sagittal reformats were performed. For radiation dose reduction, the following was used: automated exposure control, adjustment of mA and/or kV according to patient size. COMPARISON: None. FINDINGS: Image quality: Diagnostic. Lower Chest: No significant findings. ABDOMEN: Liver: No solid mass. Mild diffuse hepatic steatosis. Gallbladder: Marked gallbladder wall edema. Distended gallbladder. Gallstones in the gallbladder. Findings are highly suspicious for acute cholecystitis. Biliary ducts: No biliary dilation. Pancreas: No ductal dilation. Spleen: Size is within normal limits. Adrenal Glands: No adrenal nodules. Kidneys and Ureters: No hydronephrosis. No solid mass. No complex renal cystic lesion which requires follow up. Stomach and Bowel: Normal colonic caliber, without significant wall thickening. Peritoneum: No abnormal intraperitoneal fluid. No free air. Ventral Wall: No significant ventral hernia. Abdominal Nodes: No retroperitoneal or mesenteric adenopathy by size criteria. Vessels: Aorta and inferior vena cava are normal in size. PELVIS: Pelvic Organs: Normal-sized, retroverted uterus.. Bladder: No bladder wall thickening, accounting for underdistention. Pelvic Nodes: No enlarged lymph nodes. Miscellaneous: No inguinal hernias are seen. Bones: No aggressive osseous abnormality. IMPRESSION: Findings are highly suspicious for acute cholecystitis. Comment: Consider gallbladder ultrasound for confirmation. Dictated by: Isaiah La M.D. on 07/11/2023 at 15:29 Approved by: Isaiah La M.D. on 07/11/2023 at 15:31
--- NOTE | 2023-07-11 15:47 | DI.US.S_ITS ---
PROCEDURE: US ABDOMEN LIMITED INDICATIONS: Cholecystitis seen on CT imaging TECHNIQUE: Real-time scanning was performed of the abdominal and retroperitoneal organs, with image documentation. COMPARISON: [facility], CT, CT ABDOMEN PELVIS W CON, 07/11/2023, 15:10. FINDINGS: Liver: Liver is normal in size and homogeneous in echotexture. Gallbladder: 2.2 cm stone is present. Sludge is also present. Wall thickness measures 5.1 cm. Pericholecystic fluid/edema is present. Biliary ducts: Intrahepatic bile ducts are non-dilated. Extrahepatic bile duct caliber measures 4 mm. Normal is 6-7 mm or less in diameter, or 10 mm or less post-cholecystectomy. Pancreas: Visualized portions of the pancreas are sonographically normal. Miscellaneous: No free abdominal fluid. IMPRESSION: Cholelithiasis with gallbladder wall thickening as well as pericholecystic fluid/edema most consistent with cholelithiasis and cholecystitis. Dictated by: Ewelina Nagy M.D. on 07/11/2023 at 16:55 Approved by: Ewelina Nagy M.D. on 07/11/2023 at 16:57
--- NOTE | 2023-07-11 18:48 | PM.CALLCOV.1 ---
Call Coverage Note Note Date of Patient Contact: 07/11/23 Time of Patient Contact: 18:48 Narrative of Care Provided: 58F acute cholecystitis -NPO -Zosyn Lap Cholecystectomy 07/11 with [facility]
[2023-07-11] MEDS: PIPERACILLIN/TAZO 3.375 GM in SODIUM CHLORIDE 0.9% 100 ML IV (20:52)
[2023-07-11] MEDS: METOPROLOL ER 25 MG TABLET PO (22:05)
[2023-07-12] VITALS (19 sets, daily range): BP systolic 97–136; BP diastolic 45–84; PULSE 45–88; RESP 12–20; TEMP 36–36.8; O2SAT 94–100; BMI 21.3
--- NOTE | 2023-07-12 | PATH_ITS ---
[facility] Accession Number: [id number] No. of containers..01 Tissue . 01 Material submitted: . gallbladder - GALLBLADDER . 01 Diagnosis: GALLBLADDER, CHOLECYSTECTOMY: Mild, chronic calculous cholecystitis and reactive changes. Benign lymph node of cystic duct, with reactive changes. Negative for dysplasia and malignancy. [facility] 07/16/2023 1454 Local . 01 Electronically signed: . Davina Darnell MD, Pathologist NPI- [id number] . 01 Gross description: . The specimen is received in formalin, labeled with the patient's name, , and gallbladder, and consists of an intact gallbladder measuring 8.4 x 3.2 x 2.5 cm with violaceous serosa. The cystic duct margin is inked blue, and a theodore lymph node candidate is identified measuring 0.8 cm in greatest dimension. The lumen contains a yellow roughened calculus measuring 2.6 cm in greatest dimension admixed with solidified, cloudy, gelatinous bile. The calculus is grossly obstructing the cystic duct. The mucosa is pale theodore and velvety with no yellow discoloration, polyps, or lesions identified. The fernandez average 0.3 cm thick. Pipefitter Helper sections to include the cystic duct margin, intact lymph node candidate, and full thickness sections are submitted in cassette A1. ([id number]) /MRV 07/15/20232 Local . 01 Pathologist provided ICD-10: K80.10 . 01 CPT . 228664 Specimen Comment: A courtesy copy of this report has been sent to [phone] Performed at: 01 [facility] [address] [place] [address] [address] [facility], [place], [place] [id number] MD Alexis Peñaloza MD Phone: [phone]
--- NOTE | 2023-07-12 09:45 | PC.NURSE ---
Addendum entered by Alaina Grajeda R.N. 07/12/23 15:41: Pt resting quietly this afternoon. Lap sites CDI; denies discomfort. Sl intact/patent. Stable post op course. Call light w/in reach, bed alarm on for pt safety. Continue w/ plan of care. Addendum entered by Alaina Grajeda R.N. 07/12/23 13:17: 4 bandaid covered lap sites; CDI Denies pain at this time. Call light w/in reach. bed alarm on for pt safety. Continue w/plan of care. Addendum entered by Alaina Grajeda R.N. 07/12/23 13:15: Pt returned from PACU at 1245 Presents sleepy. \ Original Note: Pt rested at interval this a,m, States just mild pain in belly refusing any meds, Saline lock LAC intact/patent. Awaiting surgery Call light w/in reach. Pt calls appropriately for needs.
--- NOTE | 2023-07-12 10:39 | PM.HP.1 ---
History of Present Illness History of Present Illness Date Patient Seen: 07/12/23 Time Patient Seen: 10:39 Chief complaint: gallbladder attacks per pt Narrative: Halina is a 58-year-old woman who has had worsening abdominal pain for several months now. She has always described the pain as slightly left-sided but near the umbilicus. She has never been worked up for gallstone disease. Pain has been exacerbated by eating fatty foods and she has eliminated fatty foods from her diet. She has also decreased her oral intake because of the pain. The pain became quite severe in the past week and she came in to the ER last night. Ultrasound and CT confirm cholelithiasis and cholecystitis. [facility] Medical History (Updated 07/11/23 @ 17:55 by Emilee Gupta PA-C) Bigeminy CVA (cerebral vascular accident) Social History Smoking Status: Never smoker alcohol intake: current Meds Home Medications and Allergies Home Medications Medication Instructions Recorded Confirmed Type atorvastatin 40 mg tablet 40 mg PO DAILY 02/04/19 07/11/23 History metoprolol succinate 25 mg 25 mg PO DAILY 02/04/19 07/11/23 History tablet,extended release 24 hr diltiazem HCl 120 mg 120 mg PO QAM #14 caps 11/01/21 07/11/23 Rx capsule,extended release 24 hr alprazolam 0.5 mg tablet 0.5 mg PO BID PRN anxiety 07/11/23 07/11/23 History Allergies Allergy/AdvReac Type Severity Reaction Status Date / Time promethazine [From Phenergan] Allergy Severe Hallucinati Verified 07/11/23 11:19 ng epinephrine Allergy Intermediate Seizure Verified 07/11/23 11:19 Exam Vital Signs (past 8 hours): - 07/12/23 04:35 07/12/23 06:00 07/12/23 08:00 Temperature 97.6 F 97.5 F L Pulse Rate 52 L 67 Respiratory Rate 16 20 Blood Pressure 97/45 L 120/69 Pulse Oximetry 95 96 98 Oxygen Delivery Method Room Air Oxygen Flow Rate 0 0 0 07/12/23 10:00 Temperature Pulse Rate Respiratory Rate Blood Pressure Pulse Oximetry 95 Oxygen Delivery Method Room Air Oxygen Flow Rate Oxygen Delivery Method Room Air Oxygen Flow Rate 0 Narrative Exam Narrative: Abdomen is soft No right upper quadrant tenderness and negative Ashton sign Objective Labs 07/11/23 11:30 07/11/23 11:30 Labs: Laboratory Results - last 24 hr 07/11/23 11:30 WBC 6.1 RBC 4.64 Hgb 14.1 Hct 41.8 MCV 90.1 MCH 30.4 MCHC 33.8 RDW 13.8 Plt Count 233 Neut % (Auto) 70.1 Lymph % (Auto) 21.3 L Harlan % (Auto) 7.8 Eos % (Auto) 0.6 L Baso % (Auto) 0.2 Neut # (Auto) 4300 Lymph # (Auto) 1300 Harlan # (Auto) 500 Eos # (Auto) 0 Baso # (Auto) 0 Sodium 139 Potassium 4.4 Chloride 104 Carbon Dioxide 31 BUN 9 Creatinine 0.61 Estimated GFR > 60 BUN/Creatinine Ratio 14.8 Glucose 108 H Calcium 9.2 Total Bilirubin 0.5 AST 25 ALT 24 Alkaline Phosphatase 100 Total Protein 7.4 Albumin 4.2 Globulin 3.2 Albumin/Globulin Ratio 1.3 Lipase 89 Assessment & Plan Assessment and plan (1) Cholecystitis: Status: Acute Plan 58-year-old woman with acute cholecystitis. We reviewed the risks and benefits of laparoscopic cholecystectomy. If the inflammation and fibrosis are severe enough I would perform a subtotal cholecystectomy to reduce the risk of bile duct injury. I explained that she may have a drain for a period of time if the inflammation and fibrosis are severe enough. Quality VTE Deep Vein Thrombosis/Pulmonary Embolism Present on Admission: No
[2023-07-12] MEDS: LACTATED RINGERS 1,000 ML 42 ML IV (10:41)
[2023-07-12] MEDS: PIPERACILLIN/TAZO 3.375 GM in SODIUM CHLORIDE 0.9% 100 ML IV (11:08)
[2023-07-12] MEDS: BUPIVACAINE 0.5% (PF) 30 ML VIAL INJ (11:24)
[2023-07-12] MEDS: ACETAMINOPHEN IV 1,000 MG/100 ML VIAL 400 MG IV (11:27)
--- NOTE | 2023-07-12 11:30 | SUR.OPER ---
Supine on padded OR bed, head on pillow, safety belt at thigh, bilateral arms secured on padded arm board <90 degrees abduction. Legs uncrossed. Padded footboard in place. Tape over blanket to secure lower legs. Gel pad under bilateral feet
--- NOTE | 2023-07-12 11:40 | SUR.OPER ---
Patients glasses brought with patient to Operating Room per patient request, removed in OR and placed in black glass case with patient label. Brought with patient to PACU.
--- NOTE | 2023-07-12 12:17 | PM.OP.1 ---
Operative Date/Time/Diagnoses Date of procedure: 07/12/23 Time of procedure: 12:17 Pre-op diagnosis: Acute cholecystitis Post-op diagnosis: same Procedure & Clinicians Procedure: Laparoscopic cholecystectomy Same procedure as scheduled: Yes Surgeon: Yogi Loja Anesthesia Type: General Operative Notes Procedure in detail: The patient was given preoperative antibiotics. The patient was brought to the operating room and placed on the table in the supine position. General endotracheal anesthesia was induced. The abdomen was prepped and draped. A time-out was performed. We made a 1 cm infraumbilical incision. We dissected down to the base of the umbilical stalk using cautery. We grasped the umbilical stalk with a Jovany clamp to elevate the abdominal wall. We scored the fascia in the midline with cautery. We pierced the peritoneum with a Peon clamp. The Kehinde port was placed and the abdomen was insufflated to 15 mmHg. A 5 mm 30 degree laparoscopic was inserted. There was no evidence of any injury from the entry. Next, we placed 5 mm ports in the subxiphoid position and right upper quadrant at the midclavicular line and anterior axillary line. The patient was then positioned in reverse Trendelenburg and the table was tilted to the left. The gallbladder was grasped at the dome and retracted cephalad. The gallbladder was inflamed and distended but could be grasped and manipulated. We then dissected the cystic structures with a combination of hook cautery and blunt dissection. We obtained a critical view. We placed clips on the cystic duct and artery and divided the cystic duct and artery sharply between the clips. The gallbladder was then dissected off the liver and placed in a specimen retrieval bag. We irrigated the right upper quadrant and all the aspirate returned clear. We then removed the 5 mm ports under direct vision we removed the Kehinde port. There was a large stone in the gallbladder and the fascial incision had to be extended to about 1.5 cm with curved Woods scissors. Gallbladder was removed. We then injected some local into the fascia and closed the fascia with four interrupted 0 Vicryl sutures. The skin incisions were closed with 4-0 Monocryl and Steri-Strips were applied. Band-Aids were applied over the Steri-Strips. EBL: 20 mL Specimen: Gallbladder and contents Post-operative Condition: stable Disposition: PACU
--- NOTE | 2023-07-12 14:11 | CM.DANOTE ---
Brief DCP Assessment Note Pt is a 58yo F here following acute cholecystitis. Lap heather with Dr. Loja 07.12.23. PCP [facility] Payer Self pay ANALYTICS LEAD reviewed EMR. Per ED note, pt came to ED for left lower quad abdominal pain. Has lost 20lbs since Feb due to pain from eating. ANALYTICS LEAD attempted to meet with pt x3 today for DCP assessment. Pt either in lap heather or sleeping heavily post op. Per RN, pt has many adult children and two that live in area. Per chart review, emergency contact is friend Maria G (p [phone]). Per chart review, pt normally ambulates indep at baseline. Plan; anticipate dc home tomorrow. CM team will follow closely for Medicaid/jordan hollis when pt more alert. CM team will follow closely for additional DCP needs. AYESHA Horne Discharge Planning/Care Management CM Discharge Assessment Start: 07/12/23 14:08 Freq: Status: Active Protocol: Document 07/12/23 14:09 (Rec: 07/12/23 14:11 [id number]) Discharge Planning Assessment Assigned Tilesetter AYESHA Rivers Advance Directives? No History Provided By Patient,Medical Record Prior Living Arrangements House Comment consider Medicaid hollis or jordan hollis Discharge Plan Home Whiteboard Updated in Patient Room with No name and ext. # of Tilesetter Review Status In Process Next Review Type Continued Stay Review
[2023-07-12] MEDS: KETOROLAC 30 MG/ML VIAL 15 MG IV (21:19)
[2023-07-12] MEDS: ALPRAZolam 0.25 MG TABLET PO (21:20)
[2023-07-13] VITALS (9 sets, daily range): BP systolic 97–118; BP diastolic 42–53; PULSE 42–79; RESP 16–20; TEMP 36.1–37.1; O2SAT 97–98
[2023-07-13] MEDS: ALPRAZolam 0.25 MG TABLET PO (05:14)
[2023-07-13] MEDS: KETOROLAC 30 MG/ML VIAL 15 MG IV ×2 (05:14→12:24)
[2023-07-13] MEDS: dilTIAZem CD 120 MG CAP PO (08:59)
--- NOTE | 2023-07-13 09:02 | CM.DPC ---
DCP Cont: Notes indicate that patient has been given a [employer] application, for she has no insurance. Unknown at this time if admissions were to see if she qualifies for [employer], can email the change group to verify. P: DCP to continue to follow. Plan is home when stable, possibly today, surgeon notes for today are pending. Nikki Toledo RN/Salvage Machine Operator
--- NOTE | 2023-07-13 13:58 | PC.NURSE ---
pt alert and oriented ,indep to bathroom. medicated with toradol ivp now denies pain. taking po well denies n/v-large bandaids x4 cdi to abd.
--- NOTE | 2023-07-13 15:17 | PM.PN.1 ---
Subjective Subjective Date Patient Seen: 07/13/23 Time Patient Seen: 15:18 Interval history: Halina feels better today although she does have quite a bit of burning pain at her mid clavicular port site. She has had a little bit of cream of wheat this morning. She does not feel like she is quite ready to go today. She has been using ketorolac for pain with good effect. She has avoided opioids since coming up the floor. Exam Vital Signs (past 8 hours): - 07/13/23 13:08 Temperature 97.6 F Pulse Rate 64 Respiratory Rate 20 Blood Pressure 97/49 L Pulse Oximetry 98 Oxygen Flow Rate 0 Oxygen Delivery Method Room Air Oxygen Flow Rate 0 Narrative Exam Narrative: Dressings clean dry and intact without ecchymosis Objective Labs 07/11/23 11:30 07/11/23 11:30 [facility] Medical History (Updated 07/11/23 @ 17:55 by Emilee Gupta PA-C) Bigeminy CVA (cerebral vascular accident) Social History Smoking Status: Never smoker alcohol intake: current Assessment & Plan Assessment and plan (1) Cholecystitis: Status: Acute Plan Plan to transition to ibuprofen Home tomorrow Quality VTE Deep Vein Thrombosis/Pulmonary Embolism Present on Admission: No
[2023-07-13] MEDS: IBUPROFEN 600 MG TABLET PO (20:46)
[2023-07-13] MEDS: ALPRAZolam 0.25 MG TABLET 0.5 MG PO (22:48)
[2023-07-14 04:00] VITALS: O2SAT 98
[2023-07-14 04:14] VITALS: BP 102/56; PULSE 52; RESP 19; TEMP 36.4; O2SAT 98
[2023-07-14 08:00] VITALS: BP 100/56; PULSE 51; RESP 16; TEMP 36.2; O2SAT 100; O2SAT 98
[2023-07-14] MEDS: IBUPROFEN 600 MG TABLET PO (08:45)
--- NOTE | 2023-07-14 13:26 | CM.DPNOTE ---
DCP note CUSTOMER PROGRAM MANAGER reviewed EMR. Per chart review, pt indep in room. d/c order in, medically stable to dc home today. Per chart review, no obvious CM needs. Per admitting, someone form admin counselors team will meet with pt about jordan packet. Pt left prior to being seen by this author. Plan: pt dc'd home today. CM team will continue to follow as needed. AYESHA Horne
--- NOTE | 2023-08-11 11:39 | PC.NURSE ---
Late Entry: Piperacillin infusion initiated 07/10 At 2052 complete 07/11 at 0053.
== END 2023-07-14 12:45 | disposition home or self-care (01) ==
LOC: ED 13:17 → AC 17:55
PROVIDERS: Emergency Medicine; Surgery; Admitting Provider Surgery; Emergency Provider Physician Assistant; PCP Internal Medicine; Referring Provider Physician Assistant; Visit Provider Surgery
PROC: 0FT44ZZ Resection of Gallbladder, Percutaneous Endoscopic Approach (ICD-10-PCS; CPT 47562; principal; 2023-07-12 11:15)
DX: K80.10 Calculus of gallbladder with chronic cholecystitis without obstruction (principal); Z86.73 Personal history of transient ischemic attack (TIA), and cerebral infarction without residual deficits; R00.8 Other abnormalities of heart beat
CPT/HCPCS: 47562; 36415; 74177; 76705; 80053; 81003; 83690; 85025; 93005; 93010; 96365; 96366; 96375; 96376; 99222; 99284; G0378; J0136; J1100; J1885; J2250; J2405; J2543; J2704; J3010; Q9967

== ENCOUNTER 2023-08-07 11:28 | Emergency (ER) | payer OTHER, MEDICAID, SELFPAY ==
[2023-07-11 18:23] VITALS: BMI 21.3
[2023-08-07] VITALS (8 sets, daily range): BP systolic 121–140; BP diastolic 58–68; PULSE 45–79; RESP 17–25; TEMP 36.5; O2SAT 92–100; BMI 20.4
--- NOTE | 2023-08-07 12:00 | ED_ITS ---
HPI - Weakness <Cari Stanley PA-C - Last Filed: 08/07/23 13:51> General Chief complaint: Weakness Stated complaint: Gall Blad SurgT-30/swollen lymph node Time Seen by Provider: 08/07/23 11:45 Source: patient Mode of arrival: Ambulatory History of Present Illness HPI Narrative: Patient is a 58-year-old female with a history of anxiety and bigeminy who presents with chief complaint of swollen glands. She had a cholecystectomy at [facility] on 07/12/23. Prior to this she had had several months of abdominal pain which she attributes to a gallstone and decreased appetite, causing her to lose 40 lb since February. When she had the surgery on 07/12/2023, she had swollen lymph nodes in her neck. Since then, the swelling has increased to the point that she has constant discomfort in her neck and pain when she moves her head. She denies sore throat. She also has noticed swollen lymph nodes and pressure in her armpits and groin. She reports a history of requiring hospitalization in [place] in 2015 due to swollen lymph nodes, this resolved after antibiotics. She does not know the name of the infection. She also had a stroke in 2019. She denies fever or chills, night sweats, chest pain, shortness of breath, blood in her urine or stools, urinary symptoms. She has a primary care doctor- Clark Ellison- but is currently unable to see him due to a change in insurance. She plans to go back to his office when her insurance changes. Related Data Home Medications Medication Instructions Recorded Confirmed atorvastatin 40 mg tablet 40 mg PO DAILY 02/04/19 08/04/23 metoprolol succinate 25 mg 25 mg PO DAILY 02/04/19 08/04/23 tablet,extended release 24 hr alprazolam 0.5 mg tablet 0.5 mg PO BID PRN anxiety 07/11/23 08/04/23 Previous Rx's Medication Instructions Recorded diltiazem HCl 120 mg 120 mg PO QAM #14 caps 11/01/21 capsule,extended release 24 hr ibuprofen 600 mg tablet 600 mg PO Q8H PRN pain #20 tabs 07/14/23 Allergies Allergy/AdvReac Type Severity Reaction Status Date / Time promethazine [From Phenergan] Allergy Severe Hallucinati Verified 08/04/23 10:14 ng epinephrine Allergy Intermediate Seizure Verified 08/04/23 10:14 Review of Systems <Cari Stanley PA-C - Last Filed: 08/07/23 13:51> Review of Systems ROS Unobtainable: All systems reviewed & are unremarkable except as noted in HPI and below Patient History <Cari Stanley PA-C - Last Filed: 08/07/23 13:51> Medical History Bigeminy CVA (cerebral vascular accident) Surgical History Hx laparoscopic cholecystectomy Social History Smoking Status: Never smoker alcohol intake: current Smoking Status: Never smoker alcohol intake frequency: holidays/special occasions only Substance Use Type: does not use Exam <Cari Stanley PA-C - Last Filed: 08/07/23 13:51> Narrative Exam Narrative: GENERAL: 58 year old patient appears stated age. Well-developed patient, in no acute distress. NEURO: AOx3. HEAD: Atraumatic. Normocephalic. EYES: Pupils equal round and reactive. Extraocular motions intact. No scleral icterus. No injection or drainage. ENT: Nose without bleeding or purulent drainage. Throat without erythema, tonsillar hypertrophy or exudate. Airway patent. Tender anterior cervical lymphadenopathy. NECK: Trachea midline. Non tender CARDIOVASCULAR: Rate jumps from 40s to 100 during exam, no murmur gallop or rub appreciated. RESPIRATORY: Clear to auscultation. Breath sounds equal bilaterally. No wheezes, rales, or rhonchi. GASTROINTESTINAL: Abdomen soft, non-tender, nondistended. Healing surgical incisions without signs of infection. EXTREMITIES: No edema or joint tenderness. SKIN: No rash or erythema of visible areas. I do not appreciate any adenopathy in bilateral axilla or groin but patient reports it is present. There is no overlying erythema of these areas. Initial Vital Signs Initial Vital Signs: Vital Signs Temperature 97.7 F 08/07/23 11:35 Pulse Rate 45 L 08/07/23 11:35 Respiratory Rate 18 08/07/23 11:35 Pulse Oximetry 98 08/07/23 11:35 Oxygen Delivery Method Room Air 08/07/23 11:35 <Anayeli Deutsch DO - Last Filed: 08/08/23 07:45> Initial Vital Signs Initial Vital Signs: Vital Signs Temperature 97.7 F 08/07/23 11:35 Pulse Rate 45 L 08/07/23 11:35 Respiratory Rate 18 08/07/23 11:35 Pulse Oximetry 98 08/07/23 11:35 Oxygen Delivery Method Room Air 08/07/23 11:35 Course <Cari Stanley PA-C - Last Filed: 08/07/23 13:51> Orders Ordered: ED Orders 08/07/23 11:56 CBC Auto Diff [Complete Blood Count AUTO DIFF] Stat CMP [Comprehensive Metabolic Panel] Stat TSH [Thyroid Stimulating Hormone] Stat UA dip [Urinalysis Screen (Dip Only)] Stat Vital Signs Vital signs: Vital Signs - 8 hr 08/07/23 11:35 08/07/23 11:48 08/07/23 11:49 Temperature 97.7 F Pulse Rate 45 L Respiratory Rate 18 17 Blood Pressure 137/68 Pulse Oximetry 98 98 Oxygen Delivery Method Room Air 08/07/23 11:49 08/07/23 11:59 08/07/23 11:59 Temperature Pulse Rate 79 Respiratory Rate 20 25 H Blood Pressure 140/64 Pulse Oximetry 92 99 Oxygen Delivery Method 08/07/23 12:00 08/07/23 12:00 08/07/23 12:30 Temperature Pulse Rate 79 Respiratory Rate 22 Blood Pressure 130/60 137/63 Pulse Oximetry 100 Oxygen Delivery Method 08/07/23 12:30 08/07/23 13:00 08/07/23 13:01 Temperature Pulse Rate 76 70 Respiratory Rate 20 20 Blood Pressure 121/58 L Pulse Oximetry 100 100 Oxygen Delivery Method 08/07/23 13:01 Temperature Pulse Rate 71 Respiratory Rate 24 Blood Pressure Pulse Oximetry 99 Oxygen Delivery Method <Anayeli Deutsch DO - Last Filed: 08/08/23 07:45> Orders Ordered: ED Orders 08/07/23 11:56 CBC Auto Diff [Complete Blood Count AUTO DIFF] Stat CMP [Comprehensive Metabolic Panel] Stat TSH [Thyroid Stimulating Hormone] Stat UA dip [Urinalysis Screen (Dip Only)] Stat Vital Signs Vital signs: Vital Signs - 8 hr 08/07/23 11:35 08/07/23 11:48 08/07/23 11:49 Temperature 97.7 F Pulse Rate 45 L Respiratory Rate 18 17 Blood Pressure 137/68 Pulse Oximetry 98 98 Oxygen Delivery Method Room Air 08/07/23 11:49 08/07/23 11:59 08/07/23 11:59 Temperature Pulse Rate 79 Respiratory Rate 20 25 H Blood Pressure 140/64 Pulse Oximetry 92 99 Oxygen Delivery Method 08/07/23 12:00 08/07/23 12:00 08/07/23 12:30 Temperature Pulse Rate 79 Respiratory Rate 22 Blood Pressure 130/60 137/63 Pulse Oximetry 100 Oxygen Delivery Method 08/07/23 12:30 08/07/23 13:00 08/07/23 13:01 Temperature Pulse Rate 76 70 Respiratory Rate 20 20 Blood Pressure 121/58 L Pulse Oximetry 100 100 Oxygen Delivery Method 08/07/23 13:01 Temperature Pulse Rate 71 Respiratory Rate 24 Blood Pressure Pulse Oximetry 99 Oxygen Delivery Method MDM - Weakness <Cari Stanley PA-C - Last Filed: 08/07/23 13:51> Lab Data 08/07/23 12:00 08/07/23 12:00 Labs: Lab Results 08/07/23 08/07/23 Range/Units 12:00 13:06 WBC 5.8 (4.5-11.0) X10^3/uL RBC 4.67 (4.0-5.2) X10^6/uL Hgb 13.9 (12.0-16.0) g/dL Hct 41.8 (36-46) % MCV 89.4 (80-100) fL MCH 29.8 (26-34) PG MCHC 33.3 (30-36) % RDW 13.8 (11.6-14.8) % Plt Count 224 (150-400) X10^3/uL Neut % (Auto) 61.6 (50-75) % Lymph % (Auto) 27.4 (25-40) % [place] % (Auto) 9.7 (3-14) % Eos % (Auto) 1.0 L (2-4) % Baso % (Auto) 0.3 (0-2) % Neut # (Auto) 3600 (4486-0602) /uL Lymph # (Auto) 1600 (6017-1580) /uL [place] # (Auto) 600 (0-900) /uL Eos # (Auto) 100 (0-450) /uL Baso # (Auto) 0 (0-100) /uL Sodium 139 (137-145) mmol/L Potassium 3.7 (3.4-5.1) mmol/L Chloride 104 (98-107) mmol/L Carbon Dioxide 28 (22-32) mmol/L BUN 8 (7-17) mg/dL Creatinine 0.61 (0.52-1.04) mg/dL Estimated GFR > 60 (>60) mL/min BUN/Creatinine Ratio 13.1 (6-22) Glucose 105 H (70-100) mg/dL Calcium 9.3 (8.4-10.2) mg/dL Total Bilirubin 0.6 (0.2-1.3) mg/dL AST 31 (14-36) IU/L ALT 29 (<35) IU/L Alkaline Phosphatase 107 (38-126) U/L Total Protein 7.5 (6.3-8.2) g/dL Albumin 4.3 (3.5-5.0) g/dL Globulin 3.2 (1.7-4.1) g/dL Albumin/Globulin Ratio 1.3 (1.0-2.8) TSH 1.17 (0.47-4.68) uIU/mL Urine Color Yellow Urine Appearance Clear Urine pH 6.0 (4.5-8.0) Ur Specific [place] 1.010 (1.000-1.035) Urine Protein Negative (Negative) Urine Glucose (UA) Negative (Negative) g/dL Urine Ketones 1+ H (NEGATIVE) Urine Occult Blood Trace-intact (Negative) Urine Nitrate Negative (Negative) Urine Bilirubin Negative (NEGATIVE) Urine Urobilinogen 0.2 (0.2) E.U./dL Ur Leukocyte Esterase Negative (NEGATIVE) MDM Narrative Medical decision making narrative: Multiple etiologies for patient's symptoms considered including, but not limited to: viral infection, bacterial infection, mono, mumps, lymphoma Labs without clinically significant abnormality. Physical exam reassuring. No evidence of post-op infection or complication. VS WNL. No indication for imaging today. Advised patient to f/u with PCP, should request records from previous hospitalization, maybe this will help clarify a possible treatment plan. Patient's symptoms improved over duration of stay with above-stated therapies. Findings and discharge diagnosis discussed with patient/family followed by verbalization of understanding Return precautions discussed with patient/family whom verbalize understanding of diagnosis and plan <Anayeli Deutsch DO - Last Filed: 08/08/23 07:45> Lab Data Labs: Lab Results 08/07/23 08/07/23 Range/Units 12:00 13:06 WBC 5.8 (4.5-11.0) X10^3/uL RBC 4.67 (4.0-5.2) X10^6/uL Hgb 13.9 (12.0-16.0) g/dL Hct 41.8 (36-46) % MCV 89.4 (80-100) fL MCH 29.8 (26-34) PG MCHC 33.3 (30-36) % RDW 13.8 (11.6-14.8) % Plt Count 224 (150-400) X10^3/uL Neut % (Auto) 61.6 (50-75) % Lymph % (Auto) 27.4 (25-40) % [place] % (Auto) 9.7 (3-14) % Eos % (Auto) 1.0 L (2-4) % Baso % (Auto) 0.3 (0-2) % Neut # (Auto) 3600 (5838-0575) /uL Lymph # (Auto) 1600 (6042-5401) /uL [place] # (Auto) 600 (0-900) /uL Eos # (Auto) 100 (0-450) /uL Baso # (Auto) 0 (0-100) /uL Sodium 139 (137-145) mmol/L Potassium 3.7 (3.4-5.1) mmol/L Chloride 104 (98-107) mmol/L Carbon Dioxide 28 (22-32) mmol/L BUN 8 (7-17) mg/dL Creatinine 0.61 (0.52-1.04) mg/dL Estimated GFR > 60 (>60) mL/min BUN/Creatinine Ratio 13.1 (6-22) Glucose 105 H (70-100) mg/dL Calcium 9.3 (8.4-10.2) mg/dL Total Bilirubin 0.6 (0.2-1.3) mg/dL AST 31 (14-36) IU/L ALT 29 (<35) IU/L Alkaline Phosphatase 107 (38-126) U/L Total Protein 7.5 (6.3-8.2) g/dL Albumin 4.3 (3.5-5.0) g/dL Globulin 3.2 (1.7-4.1) g/dL Albumin/Globulin Ratio 1.3 (1.0-2.8) TSH 1.17 (0.47-4.68) uIU/mL Urine Color Yellow Urine Appearance Clear Urine pH 6.0 (4.5-8.0) Ur Specific [place] 1.010 (1.000-1.035) Urine Protein Negative (Negative) Urine Glucose (UA) Negative (Negative) g/dL Urine Ketones 1+ H (NEGATIVE) Urine Occult Blood Trace-intact (Negative) Urine Nitrate Negative (Negative) Urine Bilirubin Negative (NEGATIVE) Urine Urobilinogen 0.2 (0.2) E.U./dL Ur Leukocyte Esterase Negative (NEGATIVE) Discharge Plan Departure Patient Disposition: Home Clinical Impression: Anterior cervical lymphadenopathy Instructions: DI for Lymphadenopathy Activity Restrictions/Additional Instructions: *You have been diagnosed with Lymphadenopathy. We did labs today to check your blood counts, your electrolytes and your thyroid. All these are normal. There is no evidence of lymphoma or acute infection. As we discussed, it is difficult to further evaluate as you do not have any systemic symptoms that we would normally associated with an infection. I would suggest trying to obtain the records from your previous hospitalization to find out more about what they diagnosed her with and what was treated. Please follow up with a primary care provider. You can access primary care through [facility] or [facility] and [facility]. *What to do: *Please continue to take your regular medications as directed. [ ] New medication prescriptions sent to your pharmacy: [ ] [ ] New medication written as a paper prescription [x] No new medications given *Please follow up with your primary care provider in 2-3 days, call for an appointment. Let them know you were seen in the Emergency Department and that we ask that you be seen in follow up. We will electronically transmit a record of today's note if your PCP is in our system *If you do not have a primary care provider please contact the [facility] Resource line at [phone]. They will ask some questions about your medical history and help get you set up with a doctor in the community. *Return to Emergency Department if you should have any new, worsening or concerning symptoms, such as [fever greater than 101 F, shaking chills, worsening pain, persistent vomiting or other concerning symptoms]. Prescriptions: No Action atorvastatin 40 mg tablet 40 mg PO DAILY Patient Comments: take 1 tablet by mouth once daily Rx Instructions: night time metoprolol succinate 25 mg tablet extended release 24 hr 25 mg PO DAILY Patient Comments: take 1 tablet by mouth once daily Rx Instructions: nightly diltiazem HCl 120 mg capsule,extended release 24hr 120 mg PO QAM Qty: 14 0RF alprazolam 0.5 mg tablet 0.5 mg PO BID PRN (Reason: anxiety) ibuprofen 600 mg tablet 600 mg PO Q8H PRN (Reason: pain) Qty: 20 0RF Referrals: Clark Ellison MD [Primary Care Provider] - Stand Alone Forms: Patient Portal/API ED Sign-out <Anayeli Deutsch DO - Last Filed: 08/08/23 07:45> Cosign ED Attending Ericature Attestation: I was available for consultation.
[2023-08-07 12:06] LABS: Add Manual Diff / Slide Review NO; Basophils Absolute Auto 0 /uL (0-100); Basophils Percent Auto 0.3 % (0-2); Eosinophils Absolute Auto 100 /uL (0-450); Hematocrit 41.8 % (36-46); Hemoglobin 13.9 g/dL (12.0-16.0); Lymphocytes Absolute Auto 1600 /uL (1100-4500); Lymphocytes Percent Auto 27.4 % (25-40); Mean Corpuscular HGB Conc 33.3 % (30-36); Mean Corpuscular Hemoglobin 29.8 PG (26-34); Mean Corpuscular Volume 89.4 fL (80-100); Monocytes Absolute Auto 600 /uL (0-900); Monocytes Percent Auto 9.7 % (3-14); Neutrophils Absolute Auto 3600 /uL (1500-7000); Neutrophils Percent Auto 61.6 % (50-75); Platelet Count 224 X10^3/uL (150-400); Red Blood Cell Count 4.67 X10^6/uL (4.0-5.2); Red Cell Distribution Width 13.8 % (11.6-14.8); White Blood Cell Count 5.8 X10^3/uL (4.5-11.0)
[2023-08-07 12:37] LABS: Alanine Aminotransferase 29 IU/L (<35); Albumin 4.3 g/dL (3.5-5.0); Albumin Globulin Ratio 1.3 (1.0-2.8); Alkaline Phosphatase 107 U/L (38-126); Aspartate Aminotransferase 31 IU/L (14-36); BUN Creatinine Ratio 13.1 (6-22); Bilirubin Total 0.6 mg/dL (0.2-1.3); Blood Urea Nitrogen 8 mg/dL (7-17); Calcium 9.3 mg/dL (8.4-10.2); Carbon Dioxide 28 mmol/L (22-32); Chloride 104 mmol/L (98-107); Estimated Glomerular Filt Rate > 60 mL/min (>60); Globulin 3.2 g/dL (1.7-4.1); Glucose 105 mg/dL (70-100); HEMOLYSIS < 15 (0-50); Potassium 3.7 mmol/L (3.4-5.1); Sodium 139 mmol/L (137-145); Total Protein 7.5 g/dL (6.3-8.2)
[2023-08-07 13:07] LABS: Thyroid Stimulating Hormone 1.17 uIU/mL (0.47-4.68)
[2023-08-07 13:29] LABS: Appearance Urine UA CLEAR; Bilirubin Urine UA NEGATIVE (NEGATIVE); Color Urine UA YELLOW; Glucose Urine UA NEGATIVE (Negative); Ketones Urine UA 1+ (NEGATIVE); Leukocyte Esterase Urine UA NEGATIVE (NEGATIVE); Nitrite Urine UA NEGATIVE (Negative); Occult Blood Urine UA TRACE-INTACT (Negative); Protein Urine UA NEGATIVE (Negative); Urobilinogen Urine UA 0.2 E.U./dL (0.2)
== END 2023-08-07 13:53 | disposition home or self-care (01) ==
PROVIDERS: Emergency Provider Physician Assistant; PCP Internal Medicine
DX: R59.0 Localized enlarged lymph nodes (principal)
CPT/HCPCS: 36415; 80053; 81003; 84443; 85025; 99283

== ENCOUNTER 2024-09-11 14:33 | Emergency (ER) | payer OTHER, SELFPAY ==
[2023-07-11 18:23] VITALS: BMI 21.3
[2024-09-11] VITALS (13 sets, daily range): BP systolic 105–149; BP diastolic 55–67; PULSE 64–89; RESP 12–23; TEMP 36.2; O2SAT 97–100; BMI 19.7
--- NOTE | 2024-09-11 14:53 | EKG_ITS ---
[id number] [address] Test Date: 2024-09-11 Pat Name: Halina Jones Department: [facility] Room: Gender: Female Chemist Assistant: HUSSAIN : 1965 Requested By: Order Number: [id number] Reading MD: Senthil Benavidez MD Measurements Intervals [place] Rate: 67 P: -19 DE: 144 QRS: 38 QRSD: 84 T: -18 QT: 410 QTc: 433 Interpretive Statements Normal sinus rhythm Electronically Signed On 09-12-2024 8:42:53 PDT by Senthil Benavidez MD
--- NOTE | 2024-09-11 16:53 | ED_ITS ---
HPI - Ear Problem General Chief complaint: Ear Stated complaint: Ears plugged, lymph nodes swollen (all over) Time Seen by Provider: 09/11/24 16:52 Mode of arrival: Ambulatory History of Present Illness HPI Narrative: Patient is a 59-year-old female history of anxiety bigeminy on diltiazem presenting today with feeling swollen and having lymph nodes. She feels that over the last couple of days she has had increased in her breast size in the broad significantly uncomfortable. She also reports that she has cervical lymphadenopathy. She denies any kind of sore throat I have she has no chest pain she was not short of breath. She denies any kind of abdominal pain or distention. No lower extremity swelling or pain. She just is really uncomfortable feels like her breasts have grown. She denies any hormone therapy she has no new medications. She reports that she does not eat very much in general. She was seen and evaluated here 08/07/2023 for swollen lymph nodes at that time. Related Data Home Medications Medication Instructions Recorded Confirmed atorvastatin 40 mg tablet 40 mg PO DAILY 02/04/19 08/04/23 metoprolol succinate 25 mg 25 mg PO DAILY 02/04/19 08/04/23 tablet,extended release 24 hr alprazolam 0.5 mg tablet 0.5 mg PO BID PRN anxiety 07/11/23 08/04/23 Previous Rx's Medication Instructions Recorded diltiazem HCl 120 mg 120 mg PO QAM #14 caps 11/01/21 capsule,extended release 24 hr ibuprofen 600 mg tablet 600 mg PO Q8H PRN pain #20 tabs 07/14/23 furosemide 20 mg tablet (Lasix) 20 mg PO DAILY #2 tabs 09/11/24 Allergies Allergy/AdvReac Type Severity Reaction Status Date / Time promethazine [From Phenergan] Allergy Severe Hallucinati Verified 09/11/24 14:40 ng epinephrine Allergy Intermediate Seizure Verified 09/11/24 14:40 Patient History Medical History Bigeminy CVA (cerebral vascular accident) Surgical History Hx laparoscopic cholecystectomy Social History Smoking Status: Unknown if ever smoked alcohol intake: current Smoking Status: Unknown if ever smoked alcohol intake frequency: holidays/special occasions only Exam Initial Vital Signs Initial Vital Signs: Vital Signs Temperature 97.2 F L 09/11/24 14:40 Pulse Rate 71 09/11/24 14:40 Respiratory Rate 13 09/11/24 14:40 Blood Pressure 135/65 09/11/24 14:40 Pulse Oximetry 99 09/11/24 14:40 Oxygen Delivery Method Room Air 09/11/24 14:40 GENERAL: Alert anxious 59-year-old female and in no acute distress. HEENT: Head atraumatic,EOMI, pupils reactive, face symmetric, moist mucous membranes PHARYNX: No erythema, no tonsillar exudate, no cervical lymphadenopathy CARDIOVASCULAR: Regular rate and rhythm without murmurs, rubs or gallops. RESPIRATORY: Breath sounds equal bilaterally, no wheezes rales or rhonchi. ABDOMEN: Soft, nontender. Normoactive bowel sounds all 4 quadrants. No guarding or rebound. EXTREMITIES: Normal range of motion, no clubbing or edema. Neurovascularly intact NEUROLOGICAL: Alert and oriented x4.Normal gait and speech. SKIN: Warm, dry, no laceration, no petechiae, no rashes or lesions. Course Orders Ordered: ED Orders 09/11/24 14:47 EKG-12 Lead Stat 09/11/24 17:02 Chest [XR chest 1V] Stat 09/11/24 17:25 BNP [NT-proBNP (BNP-Adult 18+)] Stat CBC Auto Diff [Complete Blood Count AUTO DIFF] Stat CMP [Comprehensive Metabolic Panel] Stat Troponin & CK Cardiac Panel Stat Vital Signs Vital signs: Vital Signs - 8 hr 09/11/24 14:40 09/11/24 14:55 09/11/24 14:56 Temperature 97.2 F L Pulse Rate 71 65 Respiratory Rate 13 21 Blood Pressure 135/65 149/67 H Pulse Oximetry 99 Oxygen Delivery Method Room Air 09/11/24 14:56 09/11/24 15:00 09/11/24 15:30 Temperature Pulse Rate 65 67 71 Respiratory Rate 12 20 20 Blood Pressure Pulse Oximetry 100 99 99 Oxygen Delivery Method 09/11/24 15:43 09/11/24 15:43 09/11/24 16:00 Temperature Pulse Rate 89 Respiratory Rate 12 Blood Pressure 137/63 140/64 Pulse Oximetry 98 Oxygen Delivery Method 09/11/24 16:00 09/11/24 16:30 09/11/24 16:31 Temperature Pulse Rate 76 69 Respiratory Rate 12 14 Blood Pressure 131/63 Pulse Oximetry 100 100 Oxygen Delivery Method 09/11/24 16:31 09/11/24 17:00 09/11/24 17:01 Temperature Pulse Rate 74 88 68 Respiratory Rate 23 20 19 Blood Pressure Pulse Oximetry 99 100 97 Oxygen Delivery Method 09/11/24 17:01 Temperature Pulse Rate Respiratory Rate Blood Pressure 137/60 Pulse Oximetry Oxygen Delivery Method Medical Decision Making Lab Data 09/11/24 17:25 09/11/24 17:25 Labs: Lab Results 09/11/24 Range/Units 17:25 WBC 4.5 (4.5-11.0) X10^3/uL RBC 4.79 (4.0-5.2) X10^6/uL Hgb 14.7 (12.0-16.0) g/dL Hct 43.5 (36-46) % MCV 90.9 (80-100) fL MCH 30.7 (26-34) PG MCHC 33.8 (30-36) % RDW 13.6 (11.6-14.8) % Plt Count 229 (150-400) X10^3/uL Neut % (Auto) 68.7 (50-75) % Lymph % (Auto) 23.9 L (25-40) % [place] % (Auto) 5.8 (3-14) % Eos % (Auto) 0.9 L (2-4) % Baso % (Auto) 0.7 (0-2) % Neut # (Auto) 3100 (1633-9119) /uL Lymph # (Auto) 1100 (3147-8989) /uL [place] # (Auto) 300 (0-900) /uL Eos # (Auto) 0 (0-450) /uL Baso # (Auto) 0 (0-100) /uL Sodium 139 (137-145) mmol/L Potassium 4.1 (3.4-5.1) mmol/L Chloride 102 (98-107) mmol/L Carbon Dioxide 32 (22-32) mmol/L BUN 13 (7-17) mg/dL Creatinine 0.64 (0.52-1.04) mg/dL Estimated GFR > 60 (>60) mL/min BUN/Creatinine Ratio 20.3 (6-22) Glucose 101 H (70-99) mg/dL Calcium 9.3 (8.4-10.2) mg/dL Total Bilirubin 0.4 (0.2-1.3) mg/dL AST 28 (14-36) IU/L ALT 26 (<35) IU/L Alkaline Phosphatase 106 (38-126) U/L Total Creatine Kinase 50 (30-135) U/L Troponin I < 0.012 (0.01-0.034) ng/mL NT-Pro-B Natriuret Pep 43 (<125) pg/mL Total Protein 7.2 (6.3-8.2) g/dL Albumin 4.5 (3.5-5.0) g/dL Globulin 2.7 (1.7-4.1) g/dL Albumin/Globulin Ratio 1.7 (1.0-2.8) Urine Dip Bedside Urine Glucose Negative Bedside Urine Bilirubin - Negative Bedside Urine Ketone - Negative Urine Specific [place] 1.010 Bedside Urine Occult Blood - Negative Bedside Urine pH 6.0 Bedside Urine Protein - Negative Bedside Urine Urobilinogen - Negative Bedside Urine Nitrite - Negative Bedside Urine Leukocytes - Negative Esterase Point of care testing: Urine Dip Bedside Urine Glucose Negative Bedside Urine Bilirubin - Negative Bedside Urine Ketone - Negative Urine Specific [place] 1.010 Bedside Urine Occult Blood - Negative Bedside Urine pH 6.0 Bedside Urine Protein - Negative Bedside Urine Urobilinogen - Negative Bedside Urine Nitrite - Negative Bedside Urine Leukocytes - Negative Esterase Imaging Data Chest x-ray: Radiologist's Impression: PROCEDURE: XR CHEST 1V INDICATIONS: short of breath TECHNIQUE: One view of the chest was acquired. COMPARISON: [facility], CR, XR CHEST 1V, 06/18/2020, 16:02. [facility], , XR CHEST 1V, 11/01/2021, 17:19. FINDINGS: Surgical changes and devices: None. Lungs and pleura: Lungs are clear, yet hyperexpanded. No pleural effusions or pneumothorax. Mediastinum: Mediastinal contours appear normal. Heart size is normal. Bones and chest wall: No suspicious bony lesions. Age-appropriate bony degenerative changes are seen. Overlying soft tissues appear unremarkable. IMPRESSION: Hyperexpanded lungs, without an acute cardiopulmonary process identified. Dictated by: Guerrero Kuhn M.D. on 09/11/2024 at 16:30 Approved by: Guerrero Kuhn M.D. on 09/11/2024 at 16:31 ECG Data Attestation: I personally reviewed and interpreted this ECG as follows: Prior ECG tracings: available for review Interpretation: Sinus rhythm rate 67 [place] interval 144 QRS 84 QTC 433 MDM Narrative Medical decision making narrative: Patient is a 59-year-old female presenting today with what she feels like her swollen breaths feeling puffy all over and swollen lymph nodes. On exam she has no evidence of peripheral edema I do not appreciate any significant cervical lymphadenopathy. She has no trouble managing her secretions or any airway or respiratory difficulties. Abdomen is soft and nontender. Blood work has been reviewed No leukocytosis WBC is 4.5 hemoglobin 14.7 hematocrit 43.5 platelets 220 CMP no electrolyte abnormality no MARCELLUS Troponin is negative BNP 43 EKGs reviewed no ischemia Chest x-ray hyperexpanded lungs no acute cardiopulmonary process Patient 59-year-old female complaining of her bra being too tight feeling swollen feeling like she has lymph nodes. I do not appreciate any cervical lymph nodes on exam she does not appear to be significantly fluid overloaded, he was no evidence of meniscus of heart failure on exam x-ray or and blood work. She was no evidence of leukemia her WBC is within normal limits. At this time offering her 1 or 2 doses of Lasix. Recommend outpatient follow up Discharge Plan Departure Patient Disposition: Home Clinical Impression: LAD (lymphadenopathy), cervical Instructions: DI for Lymphadenopathy, DI for Peripheral Edema -- Bilateral Activity Restrictions/Additional Instructions: *You have been diagnosed with peripheral edema cervical lymphadenopathy *What to do: At this time blood work is overall reassuring blood work chest x- ray do not really show significant retention *Continue to take medications as directed Lasix 20 mg daily for 2 days if needed *Follow up with your primary care provider in 2-3 days or call [phone] *Return to ER if you should have increasing swelling shortness of breath chest pain or any new, worsening or concerning symptoms Prescriptions: New furosemide [Lasix] 20 mg tablet 20 mg PO DAILY Qty: 2 0RF No Action atorvastatin 40 mg tablet 40 mg PO DAILY Patient Comments: take 1 tablet by mouth once daily Rx Instructions: night time metoprolol succinate 25 mg tablet extended release 24 hr 25 mg PO DAILY Patient Comments: take 1 tablet by mouth once daily Rx Instructions: nightly diltiazem HCl 120 mg capsule,extended release 24hr 120 mg PO QAM Qty: 14 0RF alprazolam 0.5 mg tablet 0.5 mg PO BID PRN (Reason: anxiety) ibuprofen 600 mg tablet 600 mg PO Q8H PRN (Reason: pain) Qty: 20 0RF Referrals: Clark Ellison MD [Primary Care Provider] - Stand Alone Forms: Patient Portal/API/Survey
--- NOTE | 2024-09-11 17:02 | DI.RAD.S_ITS ---
PROCEDURE: XR CHEST 1V INDICATIONS: short of breath TECHNIQUE: One view of the chest was acquired. COMPARISON: [facility], CR, XR CHEST 1V, 06/18/2020, 16:02. [facility], CR, XR CHEST 1V, 11/01/2021, 17:19. FINDINGS: Surgical changes and devices: None. Lungs and pleura: Lungs are clear, yet hyperexpanded. No pleural effusions or pneumothorax. Mediastinum: Mediastinal contours appear normal. Heart size is normal. Bones and chest wall: No suspicious bony lesions. Age-appropriate bony degenerative changes are seen. Overlying soft tissues appear unremarkable. IMPRESSION: Hyperexpanded lungs, without an acute cardiopulmonary process identified. Dictated by: Guerrero Kuhn M.D. on 09/11/2024 at 16:30 Approved by: Guerrero Kuhn M.D. on 09/11/2024 at 16:31
--- NOTE | 2024-09-11 17:26 | PC.NURSE ---
Pt has felt like her ears have been plugged and her equilibrium are off. Pt feeling dizzy. Pt has had her ears looked at without a diagnosis. Pt here today because she feels like all of her lymph nodes are swollen and she is having generalized pain 8/10. Pt feels like her bra is fitting her tight recenlty.
[2024-09-11 17:34] LABS: Add Manual Diff / Slide Review NO; Basophils Absolute Auto 0 /uL (0-100); Basophils Percent Auto 0.7 % (0-2); Eosinophils Absolute Auto 0 /uL (0-450); Eosinophils Percent Auto 0.9 % (2-4); Hematocrit 43.5 % (36-46); Hemoglobin 14.7 g/dL (12.0-16.0); Lymphocytes Absolute Auto 1100 /uL (1100-4500); Lymphocytes Percent Auto 23.9 % (25-40); Mean Corpuscular HGB Conc 33.8 % (30-36); Mean Corpuscular Hemoglobin 30.7 PG (26-34); Mean Corpuscular Volume 90.9 fL (80-100); Monocytes Absolute Auto 300 /uL (0-900); Monocytes Percent Auto 5.8 % (3-14); Neutrophils Absolute Auto 3100 /uL (1500-7000); Neutrophils Percent Auto 68.7 % (50-75); Platelet Count 229 X10^3/uL (150-400); Red Blood Cell Count 4.79 X10^6/uL (4.0-5.2); Red Cell Distribution Width 13.6 % (11.6-14.8); White Blood Cell Count 4.5 X10^3/uL (4.5-11.0)
[2024-09-11 17:45] LABS: Alanine Aminotransferase 26 IU/L (<35); Albumin 4.5 g/dL (3.5-5.0); Albumin Globulin Ratio 1.7 (1.0-2.8); Alkaline Phosphatase 106 U/L (38-126); Aspartate Aminotransferase 28 IU/L (14-36); BUN Creatinine Ratio 20.3 (6-22); Bilirubin Total 0.4 mg/dL (0.2-1.3); Blood Urea Nitrogen 13 mg/dL (7-17); Calcium 9.3 mg/dL (8.4-10.2); Carbon Dioxide 32 mmol/L (22-32); Chloride 102 mmol/L (98-107); Creatine Kinase 50 U/L (30-135); Estimated Glomerular Filt Rate > 60 mL/min (>60); Globulin 2.7 g/dL (1.7-4.1); Glucose 101 mg/dL (70-99); HEMOLYSIS < 15 (0-50); Potassium 4.1 mmol/L (3.4-5.1); Sodium 139 mmol/L (137-145); Total Protein 7.2 g/dL (6.3-8.2)
[2024-09-11 17:56] LABS: NT-proBNP (BNP-Adult 18+) 43 pg/mL (<125); Troponin I < 0.012 ng/mL (0.01-0.034)
== END 2024-09-11 18:14 | disposition home or self-care (01) ==
PROVIDERS: Emergency Provider Emergency Medicine; PCP Internal Medicine
DX: R59.0 Localized enlarged lymph nodes (principal); R06.02 Shortness of breath
CPT/HCPCS: 36415; 71045; 80053; 81003; 82550; 83880; 84484; 85025; 93005; 93010; 99283; 99284

== ENCOUNTER 2024-10-07 21:09 | Emergency (ER) | payer OTHER, SELFPAY ==
[2023-07-11 18:23] VITALS: BMI 21.3
[2024-10-07 22:17] VITALS: BP 151/70; PULSE 51; RESP 18; TEMP 36.7; O2SAT 99; BMI 20.2
--- NOTE | 2024-10-08 00:24 | DI.RAD.S_ITS ---
PROCEDURE: XR CHEST 1V INDICATIONS: suspected sepsis TECHNIQUE: One view of the chest was acquired. COMPARISON: [facility], CR, XR CHEST 1V, 09/11/2024, 17:05. [facility], CR, XR CHEST 1V, 11/01/2021, 17:19. FINDINGS AND IMPRESSION: On this single view study, there is no airspace consolidation or pleural effusion. Normal heart size. Similar prominence of the hilar vessels. Degenerative osseous changes. Dictated by: Anthony Farias M.D. on 10/08/2024 at 1:28 Approved by: Anthony Farias M.D. on 10/08/2024 at 1:28
[2024-10-08 00:57] LABS: Add Manual Diff / Slide Review NO; Basophils Absolute Auto 0 /uL (0-100); Basophils Percent Auto 0.7 % (0-2); Eosinophils Absolute Auto 100 /uL (0-450); Eosinophils Percent Auto 1.8 % (2-4); Hematocrit 41.9 % (36-46); Lymphocytes Absolute Auto 2000 /uL (1100-4500); Mean Corpuscular HGB Conc 33.3 % (30-36); Mean Corpuscular Hemoglobin 30.3 PG (26-34); Monocytes Absolute Auto 500 /uL (0-900); Monocytes Percent Auto 9.4 % (3-14); Neutrophils Absolute Auto 2500 /uL (1500-7000); Neutrophils Percent Auto 49.1 % (50-75); Platelet Count 208 X10^3/uL (150-400); Red Cell Distribution Width 13.7 % (11.6-14.8)
[2024-10-08 01:07] LABS: Lactate (Lactic Acid) 0.6 mmol/L (0.7-2.1)
[2024-10-08 01:08] LABS: Prothrombin Time 11.7 SECONDS (9.4-12.5)
[2024-10-08 01:09] LABS: Alanine Aminotransferase 24 IU/L (<35); Albumin 4.3 g/dL (3.5-5.0); Albumin Globulin Ratio 1.5 (1.0-2.8); Alkaline Phosphatase 100 U/L (38-126); Aspartate Aminotransferase 27 IU/L (14-36); BUN Creatinine Ratio 20.3 (6-22); Bilirubin Total 0.4 mg/dL (0.2-1.3); Blood Urea Nitrogen 13 mg/dL (7-17); Calcium 8.9 mg/dL (8.4-10.2); Carbon Dioxide 27 mmol/L (22-32); Chloride 103 mmol/L (98-107); Estimated Glomerular Filt Rate > 60 mL/min (>60); Globulin 2.9 g/dL (1.7-4.1); Glucose 96 mg/dL (70-99); HEMOLYSIS < 15 (0-50); Lipase 195 U/L (23-300); Potassium 3.8 mmol/L (3.4-5.1); Sodium 137 mmol/L (137-145); Total Protein 7.2 g/dL (6.3-8.2)
[2024-10-08 01:11] LABS: C-Reactive Protein Quant < 0.5 mg/dL (<1.0); PTT Partial Thromboplastin Tim 35 SECONDS (25.1-36.5)
[2024-10-08 01:25] LABS: Erythrocyte Sedimentation Rate 6 MM/HR (0-20)
[2024-10-08 01:26] LABS: Procalcitonin < 0.030 ng/mL (<0.5)
[2024-10-08 03:46] VITALS: PULSE 66; O2SAT 100
[2024-10-08 03:47] VITALS: BP 139/63; PULSE 60; O2SAT 99
[2024-10-08 04:00] VITALS: BP 125/61; PULSE 56; RESP 18; O2SAT 100
[2024-10-08 04:30] VITALS: BP 118/64; PULSE 59; RESP 18; O2SAT 99
--- NOTE | 2024-10-08 04:35 | ED.NECK ---
HPI - Neck Pain/Injury General Chief Complaint: Neck Pain/Injury Stated Complaint: lymph node infection pain through out whole body Time Seen by Provider: 10/08/24 04:35 Mode of arrival: Ambulatory History of Present Illness HPI Narrative: 59-year-old female with a history of stroke patient does not take any anticoagulation, hypertension, bigeminy describes all of their lymph nodes swollen for a month throughout the body. Patient states they noted particularly in the neck but states it is in the axilla breast abdomen size and groin. They state that it feels like the swelling has progressed but has been very slow over a month long. They state there does seem to be some change to voice but intermittent. Subjective fevers but patient states they are temperature runs low so a fever is in the 98 range. Patient notes does sometimes have palpitations and we will take metoprolol unless heart rate is too low. Patient please do not had any shortness of breath. No stridor. No muffled voice. No difficulty with swallowing secretions. No nausea or vomiting. No issues with bowel movements. No changes to urination. Patient states some close feel tight but no swelling of extremities. Patient states they take cardia daily, takes metoprolol as needed. Patient notes they seen primary care he was ordered an outpatient ultrasound of the neck that is a P for formed on 10/13/2024. Patient states that they has a hospitalization in 2016 and had an infection that was throughout the entire body and was hospitalized for a month. From her description it sounds like she may have had an abscess and cellulitis of the left upper extremity as she was describes having pain and redness on area that was drained with the infection was throughout. She states that it was very hard for that to be found. Patient notes no tobacco no regular alcohol no recreational drugs. Dr. Ellison is patient's primary care physician. Related Data Home Medications ?Medication ?Instructions ?Recorded ?Confirmed atorvastatin 40 mg tablet 40 mg PO DAILY 02/04/19 08/04/23 metoprolol succinate 25 mg 25 mg PO DAILY 02/04/19 08/04/23 tablet,extended release 24 hr alprazolam 0.5 mg tablet 0.5 mg PO BID PRN anxiety 07/11/23 08/04/23 Previous Rx's ?Medication ?Instructions ?Recorded diltiazem HCl 120 mg 120 mg PO [facility] #14 caps 11/01/21 capsule,extended release 24 hr ibuprofen 600 mg tablet 600 mg PO Q8H PRN pain #20 tabs 07/14/23 furosemide 20 mg tablet (Lasix) 20 mg PO DAILY #2 tabs 09/11/24 Allergies Allergy/AdvReac Type Severity Reaction Status Date / Time promethazine (From Phenergan) Allergy Severe Hallucinati Verified 10/07/24 22:18 ng epinephrine Allergy Intermediate Seizure Verified 10/07/24 22:18 Review of Systems Review of Systems ROS Unobtainable: All systems reviewed & are unremarkable except as noted in HPI and below Patient History Medical History Bigeminy CVA (cerebral vascular accident) Surgical History Hx laparoscopic cholecystectomy Social History Smoking Status: Never smoker alcohol intake: current Smoking Status: Never smoker alcohol intake frequency: holidays/special occasions only Exam Narrative Exam Narrative: GEN: Thin female, alert and oriented x 3, patient appears to be in mild distress. HEENT: Atraumatic, pupils are equal round reactive to light, extraocular movements are intact, nares are clear, TMs are clear with no fluid, there is no conjunctival pallor. Throat is clear without any exudates, erythema, tonsillar enlargement or uvular deviation, patient has palpable submandibular lymph node but not significantly enlarged, they are slightly tender bilaterally, no palpable anterior cervical chain lymphadenopathy. Normal voice, no stridor, no difficulty with secretions patient is able to lay back without issue. HEART: Regular rate and rhythm without murmur, clicks, rubs. Pulses are equal in upper and lower extremities LUNGS:Lungs clear to auscultation, no wheezes, rales, crackles, chest moves symmetrically ABD:bowel sounds normal, soft, non-tender, no guarding, rebound, rigidity, no masses noted, no hepatosplenomegaly :No CVA tenderness MSCL: Non-tender, no muscle atrophy, muscles strength 5/5 upper and lower extremities, full range of motion. On exam no palpable lymphadenopathy in the axilla, supraclavicular, groin is appreciable on exam. NEURO:CN 2-12 intact, sensation normal Initial Vital Signs Initial Vital Signs: Vital Signs Temperature 98.1 F 10/07/24 22:17 Pulse Rate 51 L 10/07/24 22:17 Respiratory Rate 18 10/07/24 22:17 Blood Pressure 151/70 H 10/07/24 22:17 Pulse Oximetry 99 10/07/24 22:17 Oxygen Delivery Method Room Air 10/07/24 22:17 Course Orders Ordered: ED Orders 10/08/24 00:24 XR chest 1V Stat Blood Culture Stat EKG-12 Lead Stat RT Consult Eval and Treat NOW 10/08/24 00:39 CRP [C-Reactive Protein Quant] Stat Complete Blood Count AUTO DIFF Stat Comprehensive Metabolic Panel Stat Erythrocyte Sedimentation Rate Stat Lactate (Lactic Acid) Stat Lipase Stat PTT Partial Thromboplastin Rubin Stat Procalcitonin Stat Prothrombin Time INR Stat Discontinued Medications Sodium Chloride (Normal Saline 0.9%) 1,000 mls @ 1,000 mls/hr IV BOLUS ONE Stop: 10/08/24 01:23 Ondansetron HCl (Ondansetron 4 Mg/2 Ml Inj) 4 mg IV NOW PRN PRN Reason: Nausea And Vomiting Ondansetron HCl (Ondansetron 4 Mg Odt) 4 mg PO NOW PRN PRN Reason: Nausea And Vomiting Vital Signs Vital signs: Vital Signs - 8 hr 10/08/24 03:46 10/08/24 03:47 10/08/24 03:47 Pulse Rate 66 60 Respiratory Rate Blood Pressure 139/63 Pulse Oximetry 100 99 10/08/24 04:00 10/08/24 04:00 10/08/24 04:30 Pulse Rate 56 L 59 L Respiratory Rate 18 Blood Pressure 125/61 Pulse Oximetry 100 99 10/08/24 04:30 Pulse Rate Respiratory Rate 18 Blood Pressure 118/64 Pulse Oximetry MDM - Neck Pain/Injury Lab Data 10/08/24 00:39 10/08/24 00:39 Labs: Lab Results 10/08/24 Range/Units 00:39 WBC 5.0 (4.5-11.0) X10^3/uL RBC 4.60 (4.0-5.2) X10^6/uL Hgb 14.0 (12.0-16.0) g/dL Hct 41.9 (36-46) % MCV 91.0 (80-100) fL MCH 30.3 (26-34) PG MCHC 33.3 (30-36) % RDW 13.7 (11.6-14.8) % Plt Count 208 (150-400) X10^3/uL Neut % (Auto) 49.1 L (50-75) % Lymph % (Auto) 39.0 (25-40) % Archuleta % (Auto) 9.4 (3-14) % Eos % (Auto) 1.8 L (2-4) % Baso % (Auto) 0.7 (0-2) % Neut # (Auto) 2500 (6510-3909) /uL Lymph # (Auto) 2000 (1129-2006) /uL Archuleta # (Auto) 500 (0-900) /uL Eos # (Auto) 100 (0-450) /uL Baso # (Auto) 0 (0-100) /uL ESR 6 (0-20) MM/HR PT 11.7 (9.4-12.5) SECONDS INR 1.0 (0.9-1.3) APTT 35 (25.1-36.5) SECONDS Sodium 137 (137-145) mmol/L Potassium 3.8 (3.4-5.1) mmol/L Chloride 103 (98-107) mmol/L Carbon Dioxide 27 (22-32) mmol/L BUN 13 (7-17) mg/dL Creatinine 0.64 (0.52-1.04) mg/dL Estimated GFR > 60 (>60) mL/min BUN/Creatinine Ratio 20.3 (6-22) Glucose 96 (70-99) mg/dL Lactate 0.6 L (0.7-2.1) mmol/L Calcium 8.9 (8.4-10.2) mg/dL Total Bilirubin 0.4 (0.2-1.3) mg/dL AST 27 (14-36) IU/L ALT 24 (<35) IU/L Alkaline Phosphatase 100 (38-126) U/L C-Reactive Protein < 0.5 (<1.0) mg/dL Total Protein 7.2 (6.3-8.2) g/dL Albumin 4.3 (3.5-5.0) g/dL Globulin 2.9 (1.7-4.1) g/dL Albumin/Globulin Ratio 1.5 (1.0-2.8) Lipase 195 (23-300) U/L Procalcitonin < 0.030 (<0.5) ng/mL MDM Narrative Medical decision making narrative: Labs show normal white count hemoglobin and platelets, coags are normal electrolytes BUN creatinine are normal lactate 0.6 procalcitonin is negative, C-reactive protein and ESR are negative. Chest x-ray shows no airspace consolidation or pleural effusion normal heart size similar prominence of hilar vessels. Degenerative osseous changes. 51-year-old female presents with complaint of swollen lymph nodes throughout her body for the past month. Was seen here in September and August for similar. Patient's workup including labs coags, C-reactive protein ESR procalcitonin are all negative, blood cultures are pending. Chest x-ray shows no acute change. Patient vitals are appropriate without any signs of sepsis or overwhelming infection. Patient recommended to follow up with primary care. Patient notes some swelling of the neck has not outpatient ultrasound ordered on 10/13/2024 does not sound like having rapid progression of symptoms we did discuss obtaining CT soft tissue neck she notes some occasional hoarseness but she defers. We did discuss possibly little bit of steroid to see if this is helpful but patient states she does not tolerate these well. Blood cultures are pending. Patient and I discussed possibly following up with rheumatology but she notes they are likely long wait times which is correct. Encouraged patient to follow up with primary care. Discharge Plan Departure Patient Disposition: Home Clinical Impression: Neck swelling Activity Restrictions/Additional Instructions: Follow up with your physician, if you are interested there is Rheumatology through [facility] I think it maybe helpful to follow up with them. You do have blood cultures pending these typically take 48-72 hours to result if positive you would be contacted. Please return for new or changing symptoms. Prescriptions: No Action atorvastatin 40 mg tablet 40 mg PO DAILY Patient Comments: take 1 tablet by mouth once daily Rx Instructions: night time metoprolol succinate 25 mg tablet extended release 24 hr 25 mg PO DAILY Patient Comments: take 1 tablet by mouth once daily Rx Instructions: nightly diltiazem HCl 120 mg capsule,extended release 24hr 120 mg PO QAM Qty: 14 0RF alprazolam 0.5 mg tablet 0.5 mg PO BID PRN (Reason: anxiety) ibuprofen 600 mg tablet 600 mg PO Q8H PRN (Reason: pain) Qty: 20 0RF furosemide [Lasix] 20 mg tablet 20 mg PO DAILY Qty: 2 0RF Referrals: Clark Ellison MD [Primary Care Provider, Internal Medicine] Stand Alone Forms: Patient Portal/API
== END 2024-10-08 05:12 | disposition home or self-care (01) ==
PROVIDERS: Emergency Provider Emergency Medicine; PCP Internal Medicine
DX: R22.1 Localized swelling, mass and lump, neck (principal)
CPT/HCPCS: 36415; 71045; 80053; 83605; 83690; 84145; 85025; 85610; 85651; 85730; 86140; 87040; 99283; 99284

== ENCOUNTER 2025-02-09 12:43 | Emergency (ER) | payer OTHER, SELFPAY ==
[2023-07-11 18:23] VITALS: BMI 21.3
[2025-02-09] VITALS (11 sets, daily range): BP systolic 126–143; BP diastolic 59–79; PULSE 56–90; RESP 12–52; TEMP 36.3; O2SAT 87–100; BMI 20.5
--- NOTE | 2025-02-09 12:55 | DI.RAD.S_ITS ---
1PROCEDURE: XR CHEST 1V INDICATIONS: Chest Pain TECHNIQUE: One view of the chest was acquired. COMPARISON: [facility], CR, XR CHEST 1V, 10/08/2024, 1:12. [facility], CR, XR CHEST 1V, 09/11/2024, 17:05. FINDINGS: Surgical changes and devices: None. Lungs and pleura: Lungs are clear. No pleural effusions or pneumothorax. Mediastinum: Mediastinal contours appear normal. Heart size is normal. Bones and chest wall: No suspicious bony lesions. Overlying soft tissues appear unremarkable. IMPRESSION: No acute cardiopulmonary abnormality is seen. Dictated by: Marc Hogan M.D. on 02/09/2025 at 14:37 Approved by: Marc Hogan M.D. on 02/09/2025 at 14:37
--- NOTE | 2025-02-09 12:55 | EKG_ITS ---
[facility] [address] [place] [address] Test Date: 2025-02-09 Pat Name: Halina Jones Department: [facility] Room: Gender: Female Emery Grinder: : 1965 Requested By: Order Number: [id number] Reading MD: Gil Byrd Measurements Intervals [place] Rate: 79 P: 77 PA: 142 QRS: 45 QRSD: 74 T: 56 QT: 410 QTc: 470 Interpretive Statements Sinus rhythm with frequent premature ventricular complexes in a pattern of bigeminy Right atrial enlargement Electronically Signed On 02-10-2025 17:05:52 PDT by Gil Byrd
--- NOTE | 2025-02-09 13:03 | ED.SOB ---
HPI - SOB/Dyspnea General Chief Complaint: Shortness of Breath/Dyspnea Stated Complaint: Sent from walk-in, dizzy, heart issues Time Seen by Provider: 02/09/25 13:02 Source: patient Mode of arrival: Ambulatory Limitations: no limitations History of Present Illness HPI Narrative: 59-year-old female history of stroke does not take anticoagulation hypertension presents with multiple visits to PCP in ER for lymph node swelling that started over 5 months ago whereby she reports difficulty eating feel like she is going to choke and just hesitating to eat or drink because of it. She has been on steroids antibiotics which briefly help within it resolve does comes back again. She denies fever chills unintentional weight loss dental pain sore throat cough. Fever, chills, bodyaches, chest pain, shortness of breath, dyspnea on exertion. Other than what is stated 14 point review of system is negative Related Data Home Medications ?Medication ?Instructions ?Recorded ?Confirmed atorvastatin 40 mg tablet 40 mg PO DAILY 02/04/19 08/04/23 metoprolol succinate 25 mg 25 mg PO DAILY 02/04/19 08/04/23 tablet,extended release 24 hr alprazolam 0.5 mg tablet 0.5 mg PO BID PRN anxiety 07/11/23 08/04/23 Previous Rx's ?Medication ?Instructions ?Recorded diltiazem HCl 120 mg 120 mg PO QAM #14 caps 11/01/21 capsule,extended release 24 hr ibuprofen 600 mg tablet 600 mg PO Q8H PRN pain #20 tabs 07/14/23 furosemide 20 mg tablet (Lasix) 20 mg PO DAILY #2 tabs 09/11/24 Allergies Allergy/AdvReac Type Severity Reaction Status Date / Time promethazine (From Phenergan) Allergy Severe Hallucinati Verified 10/07/24 22:18 ng epinephrine Allergy Intermediate Seizure Verified 10/07/24 22:18 Review of Systems Review of Systems ROS Unobtainable: All systems reviewed & are unremarkable except as noted in HPI and below Patient History Medical History Bigeminy CVA (cerebral vascular accident) Surgical History Hx laparoscopic cholecystectomy Social History Smoking Status: Never smoker alcohol intake: current Smoking Status: Never smoker alcohol intake frequency: holidays/special occasions only Exam Narrative Exam Narrative: GENERAL: [59] year old patient appears stated age. Well-developed patient, in mild distress. HEAD: Atraumatic. Normocephalic. EYES: Pupils equal round and reactive. Extraocular motions intact. No scleral icterus. No injection or drainage. ENT: Nose without bleeding, purulent drainage. Throat without erythema, tonsillar hypertrophy or exudate. Airway patent. NECK: Trachea midline. Non tender CARDIOVASCULAR: Regular rate and rhythm without murmurs, gallops, or rubs. RESPIRATORY: Clear to auscultation. Breath sounds equal bilaterally. No wheezes, rales, or rhonchi. GASTROINTESTINAL: Abdomen soft, non-tender, nondistended. EXTREMITIES: No edema or joint tenderness. BACK: Nontender without deformity or crepitance. No flank tenderness. NEURO: AOx3. SKIN: No rash or erythema of visible areas Initial Vital Signs Initial Vital Signs: Vital Signs Temperature 97.3 F L 02/09/25 12:47 Pulse Rate 67 02/09/25 12:47 Respiratory Rate 14 02/09/25 12:47 Blood Pressure 140/64 02/09/25 12:47 Pulse Oximetry 100 02/09/25 12:47 Oxygen Delivery Method Room Air 02/09/25 12:47 Course Orders Ordered: ED Orders 02/09/25 12:55 XR chest 1V Stat Complete Blood Count AUTO DIFF Stat Comprehensive Metabolic Panel Stat Lipase Stat Magnesium Stat NT-proBNP (BNP-Adult 18+) Stat PTT Partial Thromboplastin Rubin Stat Prothrombin Time INR Stat Troponin & CK Cardiac Panel Stat EKG-12 Lead Stat Discontinued Medications Aspirin (Aspirin 81 Mg Chew Tab) 324 mg PO NOW ONE Stop: 02/09/25 12:56 Vital Signs Vital signs: Vital Signs - 8 hr 02/09/25 12:47 Temperature 97.3 F L Pulse Rate 67 Respiratory Rate 14 Blood Pressure 140/64 Pulse Oximetry 100 Oxygen Delivery Method Room Air MDM - SOB/Dyspnea Imaging Data Extremity x-ray #1: Radiologist's Impression: [address] [address] [address] Scan Report Signed Patient: Halina Jones MR#: [id number] : 1965 Acct:[id number] Age/Sex: 59 / F Date of Service: 02/09/25 Loc: ED Accession Number: [id number] Procedure: CT soft tissue neck w con Ordering Provider: Senthil Maldonado D.O. PROCEDURE: CT SOFT TISSUE NECK W CON INDICATIONS: difficulty swallowing TECHNIQUE: After the administration of intravenous contrast, 3.0 mm axial sections acquired from the sella to the aortic arch. Additional oblique axial 3.0 mm sections acquired through the pharynx. 3 mm thick coronal and sagittal reformats were generated. For radiation dose reduction, the following was used: automated exposure control. COMPARISON: None. FINDINGS: Image quality: Excellent. Lymph nodes: No enlarged lymph nodes seen throughout the neck. Vessels: Visualized vasculature appears patent. Neck spaces: The oropharynx, nasopharynx, and pharynx demonstrate no mucosal lesions. The vocal cords, false vocal cords, pyriform sinuses, epiglottis, vallecula, and tongue base all appear normal. Extramucosal spaces appear unremarkable. Glands: The parotid and submandibular glands appear normal. Thyroid gland demonstrates no significant abnormality. Miscellaneous: Visualized brain and orbits appear normal. Lung apices appear clear. Superficial soft tissues appear normal. Bones: No suspicious bony lesions. Visualized sinuses and mastoids appear unremarkable. IMPRESSION: No cause for patient's symptoms identified. No significant abnormalities are seen within the neck. ECG Data Interpretation: HR 79 Sinus Rhythm with PVC MA 142 QRS [address]-t wave change MDM Narrative Medical decision making narrative: All lab work, vital signs, nurse triage note, medication list, previous ER visits, and all imaging studies reviewed. CT neck showed no cause for the patient's symptoms no significant abnormalities are seen within the neck. WBC 6.9 hemoglobin 14.8 platelets 280 INR 1.0 sodium 138 potassium 4.0 chloride 99 CO2 30 BUN 13 creatinine 0.74 glucose 107 magnesium 1.9 LFTs are normal troponin normal BNP 67. Case discussed discussed with Dr. Pacheco surgeon on-call who will have his office staff call patient for endoscopy to rule out esophageal stricture Schatzki's ring or reasons for her dysphagia. She is currently on steroids and antibiotics at this time as previously prescribed. Discharge Plan Departure Patient Disposition: Home Clinical Impression: Neck swelling Dysphagia Qualifiers: Dysphagia type: oropharyngeal phase Qualified Code(s): R13.12 - Dysphagia, oropharyngeal phase Instructions: DI for Esophageal Dysphagia Activity Restrictions/Additional Instructions: Return with new or worsening symptoms. Please call Dr. Pacheco office for endoscopy appointment. [phone] Prescriptions: No Action atorvastatin 40 mg tablet 40 mg PO DAILY Patient Comments: take 1 tablet by mouth once daily Rx Instructions: night time metoprolol succinate 25 mg tablet extended release 24 hr 25 mg PO DAILY Patient Comments: take 1 tablet by mouth once daily Rx Instructions: nightly diltiazem HCl 120 mg capsule,extended release 24hr 120 mg PO QAM Qty: 14 0RF alprazolam 0.5 mg tablet 0.5 mg PO BID PRN (Reason: anxiety) ibuprofen 600 mg tablet 600 mg PO Q8H PRN (Reason: pain) Qty: 20 0RF furosemide [Lasix] 20 mg tablet 20 mg PO DAILY Qty: 2 0RF Referrals: Clark Ellison MD [Primary Care Provider, Internal Medicine] Stand Alone Forms: Patient Portal/API
--- NOTE | 2025-02-09 13:54 | DI.CT.S_ITS ---
PROCEDURE: CT SOFT TISSUE NECK W CON INDICATIONS: difficulty swallowing TECHNIQUE: After the administration of intravenous contrast, 3.0 mm axial sections acquired from the sella to the aortic arch. Additional oblique axial 3.0 mm sections acquired through the pharynx. 3 mm thick coronal and sagittal reformats were generated. For radiation dose reduction, the following was used: automated exposure control. COMPARISON: None. FINDINGS: Image quality: Excellent. Lymph nodes: No enlarged lymph nodes seen throughout the neck. Vessels: Visualized vasculature appears patent. Neck spaces: The oropharynx, nasopharynx, and pharynx demonstrate no mucosal lesions. The vocal cords, false vocal cords, pyriform sinuses, epiglottis, vallecula, and tongue base all appear normal. Extramucosal spaces appear unremarkable. Glands: The parotid and submandibular glands appear normal. Thyroid gland demonstrates no significant abnormality. Miscellaneous: Visualized brain and orbits appear normal. Lung apices appear clear. Superficial soft tissues appear normal. Bones: No suspicious bony lesions. Visualized sinuses and mastoids appear unremarkable. IMPRESSION: No cause for patient's symptoms identified. No significant abnormalities are seen within the neck. Approved by: Paul Frazier M.D. on 02/09/2025 at 15:00
[2025-02-09 13:58] LABS: Add Manual Diff / Slide Review NO; Hematocrit 44.1 % (36-46); Hemoglobin 14.8 g/dL (12.0-16.0); Lymphocytes Absolute Auto 1800 /uL (1100-4500); Mean Corpuscular HGB Conc 33.6 % (30-36); Mean Corpuscular Hemoglobin 30.1 PG (26-34); Mean Corpuscular Volume 89.5 fL (80-100); Platelet Count 280 X10^3/uL (150-400)
[2025-02-09] MEDS: LACTATED RINGERS 1,000 ML 1000 ML IV (14:00)
[2025-02-09] MEDS: methylPREDNISolone succ 125 MG/2 ML VIAL IV (14:01)
[2025-02-09 14:07] LABS: INR 1.0 (0.9-1.3); Prothrombin Time 11.2 SECONDS (9.4-12.5)
[2025-02-09 14:09] LABS: PTT Partial Thromboplastin Tim 29 SECONDS (25.1-36.5)
[2025-02-09 14:11] LABS: Alanine Aminotransferase 21 IU/L (<35); Albumin 4.6 g/dL (3.5-5.0); Albumin Globulin Ratio 1.4 (1.0-2.8); Blood Urea Nitrogen 13 mg/dL (7-17); Carbon Dioxide 30 mmol/L (22-32); Chloride 99 mmol/L (98-107); Creatine Kinase 31 U/L (30-135); Estimated Glomerular Filt Rate > 60 mL/min (>60); Globulin 3.2 g/dL (1.7-4.1); HEMOLYSIS < 15 (0-50); Lipase 164 U/L (23-300); Magnesium 1.9 mg/dL (1.6-2.3); Potassium 4.0 mmol/L (3.4-5.1); Sodium 138 mmol/L (137-145); Total Protein 7.8 g/dL (6.3-8.2)
[2025-02-09 14:12] LABS: Alkaline Phosphatase 109 U/L (38-126); Calcium 9.0 mg/dL (8.4-10.2); Glucose 107 mg/dL (70-99)
[2025-02-09 14:23] LABS: NT-proBNP (BNP-Adult 18+) 67 pg/mL (<125); Troponin I < 0.012 ng/mL (0.01-0.034)
== END 2025-02-09 16:22 | disposition home or self-care (01) ==
PROVIDERS: Emergency Provider Family Medicine; PCP Internal Medicine
DX: R13.12 Dysphagia, oropharyngeal phase (principal); R22.1 Localized swelling, mass and lump, neck; Z86.73 Personal history of transient ischemic attack (TIA), and cerebral infarction without residual deficits
CPT/HCPCS: 36415; 70491; 71045; 80053; 81003; 82550; 83690; 83735; 83880; 84484; 85025; 85610; 85730; 93005; 96361; 96374; 99284; J2919; J7120; Q9967

== ENCOUNTER 2025-02-15 10:55 | Day surgery (SDC) | payer OTHER, SELFPAY ==
[2023-07-11 18:23] VITALS: BMI 21.3
--- NOTE | 2025-02-15 | PATH_ITS ---
[facility] Accession Number: [id number] No. of containers..02 Tissue . 01 Material submitted: . PART A: stomach - STOMACH, ANTRUM PART B: duodenum - DUODENUM . 01 Diagnosis: A. STOMACH, ANTRUM, BIOPSY: Antral mucosa with mild chronic inflammation. Negative for Helicobacter organisms by IHC stain. Negative for intestinal metaplasia, dysplasia, and malignancy. . B. DUODENUM, BIOPSY: Duodenal mucosa with gastric benign heterotopia. Negative for villous blunting and intraepithelial lymphocytosis. Negative for dysplasia and malignancy. MRV 02/25/2025 1557 Local . 01 Comment: Immunohistochemistry for Helicobacter organisms is performed with adequate controls on block A1 and is negative. . * This test was developed and the performance characteristics were validated by [employer]. It has not been cleared or approved by the U.S. Food and Drug Administration. . 01 Electronically signed: . Radha Smart DO, Pathologist NPI- [id number] . 01 Gross description: . Received two formalin filled containers, both labeled with the patient's name. . A. In a container labeled 1. Antrum of stomach, the specimen consists of two fragments of kwok-theodore soft tissue which range in size from less than 0.1 cm to 0.3 x 0.3 x 0.2 cm. All fragments are totally submitted in cassette A. B. In a container labeled duodenum, the specimen consists of two fragments of kwok-theodore soft tissue which range in size from 0.1 x 0.1 x 0.1 cm to 0.2 x 0.2 x 0.2 cm. All fragments are totally submitted in cassette B. ([facility] [place][id number][place] /MRV 02/22/2025 0409 Local . 01 Pathologist provided ICD-10: R13.10 . 01 CPT . 495278, 440676, [id number] Specimen Comment: A courtesy copy of this report has been sent to [facility] Pathology Performed at: [address] [id number] MD Alexis Peñaloza MD Phone: [phone]
--- NOTE | 2025-02-15 06:29 | PM.PREOP ---
Pre-operative Note Interval Note History & Physical reviewed/Exam performed by Physician: Yes Changes to H&P: No ASA Class (for procedural sedation): II
[2025-02-15 11:17] VITALS: BP 114/73; PULSE 71; RESP 16; TEMP 36.7; O2SAT 100
[2025-02-15] MEDS: LACTATED RINGERS 1,000 ML 42 ML IV (11:31)
--- NOTE | 2025-02-15 12:14 | SUR.PREOP ---
1214 wallet with horse pattern is hooked to pt's belt in her belongings at her request
--- NOTE | 2025-02-15 13:04 | PM.OP.EGD ---
Operative Date/Time/Diagnoses Date of procedure: 02/15/25 Time of procedure: 13:14 Pre-op diagnosis: Dysphagia Post-op diagnosis: other (Mild antral gastritis with old clot, duodenitis) Procedure & Clinicians Study performed: EGD with biopsy Same procedure(s) as scheduled: Yes Indications: 59yo F with dysphagia Surgeon: Harish Pacheco Anesthesia Type: MAC +/- Procedure Notes SCOAP/Timeout: Performed Procedure in detail: EGD Informed consent was obtained. The procedure, its risks, benefits, and alternatives were discussed. Patient understood and agreed to proceed. The patient was placed in the left lateral decubitus position with head elevated. Sedation given per anesthesia. The video endoscope was inserted into the oropharynx and guided under direct vision into the esophagus, stomach, and duodenum which were carefully examined. The scope was retroflexed to examine the hiatus and gastroesophageal junction. Antral biopsies were obtained for Helicobacter pylori. The patient tolerated the procedure very well. There were no apparent complications. Significant EGD findings: Z-line noted at: 36cm No hiatal hernia No esophagitis No endoscopic finding in esophagus to explain dysphagia Mild antral gastritis with old clots, sign of recent bleeding, biopsies taken for H pylori No gastric mass, stricture, polyp Duodneal inflammation, mild to moderate, biopsies taken No endoscopic reason for dysphagia Recommend Modified Barium Swallow evaluation Findings: gastritis Specimen(s): other (biopsies) Complications: none Impression: Antral gastritis, duodenitis, biopsies taken No endoscopic explanaiton for dysphagia Recommend MBS Post-procedure Recommendations: Will call with biopsy results Plan for aftercare: PACU then home Follow up: as needed Disposition: PACU
== END 2025-02-15 13:54 | disposition home or self-care (01) ==
PROVIDERS: PCP Internal Medicine; Referring Provider Surgery; Visit Provider Surgery
PROC: 0DJ08ZZ Inspection of Upper Intestinal Tract, Via Natural or Artificial Opening Endoscopic (ICD-10-PCS; CPT 43239; principal; 2025-02-15 12:00)
DX: R13.10 Dysphagia, unspecified (principal); K29.50 Unspecified chronic gastritis without bleeding
CPT/HCPCS: 43239; J2704; J7120